=== PATIENT | male | born 1965 ===

== ENCOUNTER 2016-05-31 13:02 | Emergency (ER) | payer MEDICAID ==
[2016-05-31 13:02] VITALS: BMI 21.5
[2016-05-31 13:12] VITALS: BP 148/82; PULSE 82; RESP 16; TEMP 97.5; O2SAT 100
--- NOTE | 2016-05-31 13:49 | ED PDOC ---
HPI: Wound Care - HPI Time Seen by Provider: 05/31/16 13:19 Chief Complaint (Nursing): Wound Check Chief Complaint (Provider): wound check History Per: Patient Exam Limitations: no limitations Additional Complaint(s): 50 yo M in ed for eval of wound to right lower leg . PT with chronic venous stasis. 05/25/16-was admitted for IV abx. routinely get wound dressing by JESUSITA Lu. pt has been taking ciprofloxacin -completing it. pt admits wound is improving no drainage no pain no increase in swelling no fever no chills vomiting Past Medical History Reviewed: Historical Data, Nursing Documentation, Vital Signs Vital Signs: Last Vital Signs Temp 97.5 F L 05/31/16 13:07 Pulse 82 05/31/16 13:07 Resp 16 05/31/16 13:07 BP 148/82 05/31/16 13:07 Pulse Ox 100 05/31/16 13:07 - Medical History PMH: Denies: Chronic Kidney Disease - Family History Family History: States: Unknown Family Hx - Home Medications Home Medications: Ambulatory Orders Medication Instructions Recorded Ciprofloxacin HCl [Cipro] 500 mg PO BID #10 tablet 05/27/16 - Allergies Allergies/Adverse Reactions: Allergies Allergy/AdvReac Type Severity Reaction Status Date / Time merbromin Allergy Mild RASH Verified 05/31/16 13:07 Iodine and Iodide Containing Allergy SHORTNESS Verified 05/31/16 13:07 Produc OF BREATH Review of Systems ROS Statement: Except As Marked, All Systems Reviewed And Found Negative Skin: Positive for: Lesions Physical Exam - Reviewed Nursing Documentation Reviewed: Yes Vital Signs Reviewed: Yes - Physical Exam Appears: Positive for: Well, Non-toxic, No Acute Distress Head Exam: Positive for: ATRAUMATIC, NORMAL INSPECTION, NORMOCEPHALIC Skin: Positive for: Normal Color, Warm, DRY Cardiovascular/Chest: Positive for: Regular Rate, Rhythm Respiratory: Positive for: CNT, Normal Breath Sounds Extremity: Positive for: Normal ROM, Pedal Edema, Capillary Refill, Other ( right lower leg-anterior chin: pitting edema noted. varicose vieins noted. 1x2 round healing ulceration with central granualtion tissue and mild surronding erythema , mildly warm to touch. no drainage ). Negative for: Calf Tenderness, Deformity Neurologic/Psych: Positive for: Alert, Oriented - ECG O2 Sat by Pulse Oximetry: 100 - Progress ED Course And Treament: podiatry consulted. Medical Decision Making Medical Decision Making: wound dressing applied-pt to f.u with wound clinic as scheduled. Disposition - Clinical Impression Clinical Impression: Encounter for wound re-check - Patient ED Disposition Is Patient to be Admitted: No Counseled Patient/Family Regarding: Diagnosis, Need For Followup - Disposition Disposition: Routine/Home Disposition Time: 14:15 Condition: STABLE Instructions: Wound Infection (ED), Chronic Wound Care (ED) Print Language: CZECH
--- NOTE | 2016-05-31 19:07 | CP.PCM.CON ---
History of Present Illness - History of Present Illness History of Present Illness: Podiatry Consult Note. Pt presents to ER concerning right leg wound. Pt is know to podiatry service, patient recently discharged 05/27/16 after treatment of stated ulceration site. Pt is continuing oral abx regimen of Clindamycin. Pt has no pedal complaints about ulcer and has not noted any negative changes or exacerbations of prior symptoms of cellulits since discharge. He is here for a clean environment to perform a stable dressing change until he can f/u in [facility] with Dr. Lu later this week. Pt denies any recent f/c/n/v/cp/sob. Past Patient History - Infectious Disease Hx of Infectious Diseases: None - Past Medical History & Family History Past Medical History?: Yes - Past Social History Smoking Status: Heavy Smoker > 10 Cigarettes Daily - CARDIAC Hx Cardiac Disorders: Yes - PULMONARY Hx Respiratory Disorders: No - NEUROLOGICAL Hx Neurological Disorder: No - HEENT Hx HEENT Problems: Yes Other/Comment: Use Eyeglasses - RENAL Hx Chronic Kidney Disease: No - ENDOCRINE/METABOLIC Hx Endocrine Disorders: No - HEMATOLOGICAL/ONCOLOGICAL Hx Blood Disorders: No - INTEGUMENTARY Hx Dermatological Problems: Yes Hx Cellulitis: Yes - MUSCULOSKELETAL/RHEUMATOLOGICAL Hx Musculoskeletal Disorders: Yes Hx Falls: Yes - GASTROINTESTINAL Hx Gastrointestinal Disorders: No - GENITOURINARY/GYNECOLOGICAL Hx Genitourinary Disorders: No - PSYCHIATRIC Hx Psychophysiologic Disorder: No Hx Substance Use: No - SURGICAL HISTORY Hx Surgeries: No - ANESTHESIA Hx Anesthesia: No Hx Anesthesia Reactions: No Hx Malignant Hyperthermia: No Meds Allergies/Adverse Reactions: Allergies Allergy/AdvReac Type Severity Reaction Status Date / Time merbromin Allergy Mild RASH Verified 05/31/16 13:07 Iodine and Iodide Containing Allergy SHORTNESS Verified 05/31/16 13:07 Produc OF BREATH Physical Exam - Constitutional Appears: Well, Non-toxic, No Acute Distress - Extremities Exam Additional comments: Right lower extremity examination: Vascular: DP/PT 2/4, TG wnl, CFT < 3 sec to all digits; temperature gradient is WNL Neuro: protective sensation and motor function grossly intact Derm: non-pitting edema bilateral, erythema to anterior tibia bilateral, right leg superficial ulceration noted to anteromedial block measuring 1.5cm x 2.0cm with granular-fibrotic mixed base absent erythematous margins nor malodor is present. Minor serous drainage noted, negative probe to bone; no purulence. Ortho: negative pain upon palpation of ulcer site - Neurological Exam Neurological exam: Alert, Oriented x3 - Psychiatric Exam Psychiatric exam: Normal Affect, Normal Mood Results - Vital Signs Recent Vital Signs: Last Vital Signs Temp 97.5 F L 05/31/16 13:07 Pulse 82 05/31/16 13:07 Resp 16 05/31/16 13:07 BP 148/82 05/31/16 13:07 Pulse Ox 100 05/31/16 14:15 Assessment & Plan - Assessment and Plan (Free Text) Assessment: 50 y/o male with Right lower leg chronic partial thickness stasis ulceration Plan: Patient evaluated and treated. Chart and vitals reviewed. Pt afebrile. Discussed patient with attending, Dr. Lu. -Redressed wound with Mupuricin (pt's own supply), DSD, & MIKE to the ulcer site -Pt to continue oral Clindamycin use Patient is currently stable for discharge from podiatric perspective; he has an appointment to follow-up with Dr. Lu at the Wound care center. - Date & Time Date: 05/31/16 Time: 02:15
== END 2016-05-31 14:22 | disposition home or self-care (01) ==
LOC: H.ER 13:02
DX: Z51.89 Encounter for other specified aftercare (principal)

== ENCOUNTER 2016-06-05 14:06 | Emergency (ER) | payer MEDICAID ==
[2016-06-05 14:06] VITALS: BMI 21.5
[2016-06-05 14:31] VITALS: BP 125/89; PULSE 99; RESP 18; TEMP 97.9; O2SAT 98
--- NOTE | 2016-06-05 15:22 | ED PDOC ---
HPI: Wound Care - HPI Time Seen by Provider: 06/05/16 15:03 Chief Complaint (Nursing): Wound Check Chief Complaint (Provider): Wound Check RLE History Per: Patient Exam Limitations: no limitations Location Of Injury: Right: Leg (Lower Leg), Anterior: Leg Quality Of Symptoms: Itching, Draining Additional Complaint(s): Can Daly is a 50 year old male, with a past medical history inclusive of chronic venous stasis (b/l LE), who presents to the ED on 06/05/16 for a check of a chronic wound located on his anterior RLE. Patient states that he usually follows up with Dr. Lu of the Wound [facility] for regular dressing changes ( last of which was 5 days ago), but that he had been unable to do so today. He reports having noted a mild amount of drainage from the wound and states that it has also been itching/burning of late, though he denies fever/chills. PMD: none Past Medical History Reviewed: Historical Data, Nursing Documentation, Vital Signs Vital Signs: Last Vital Signs Temp 97.9 F 06/05/16 14:30 Pulse 99 H 06/05/16 14:30 Resp 18 06/05/16 14:30 BP 125/89 06/05/16 14:30 Pulse Ox 98 06/05/16 14:30 - Medical History PMH: Denies: Chronic Kidney Disease Other PMH: chronic venous stasis of b/l LE - Surgical History Surgical History: No Surg Hx - Family History Family History: States: Unknown Family Hx - Living Arrangements Living Arrangements: Other (currently homeless) - Home Medications Home Medications: Ambulatory Orders Medication Instructions Recorded Ciprofloxacin HCl [Cipro] 500 mg PO BID #10 tablet 05/27/16 - Allergies Allergies/Adverse Reactions: Allergies Allergy/AdvReac Type Severity Reaction Status Date / Time merbromin Allergy Mild RASH Verified 06/05/16 14:27 Iodine and Iodide Containing Allergy SHORTNESS Verified 06/05/16 14:27 Produc OF BREATH Review of Systems Constitutional: Negative for: Fever, Chills Skin: Positive for: Other (drainage/burning/itching of chronic RLE wound) Physical Exam - Reviewed Nursing Documentation Reviewed: Yes Vital Signs Reviewed: Yes - Physical Exam Appears: Positive for: Non-toxic, No Acute Distress Extremity: Positive for: Swelling (varicose veins with some pitting edema noted to RLE, with an additional small area of swelling noted just inferior to healing ulcer), Other (healing ulcer noted to anterior aspect of right lower leg with no notable drainage/granular tissue, nontender to palpation with no warmth/wound streaking ) Neurologic/Psych: Positive for: Alert, Oriented - ECG O2 Sat by Pulse Oximetry: 98 (RA) Pulse Ox Interpretation: Normal Medical Decision Making Medical Decision Makin:03 Initial Impression: chronic RLE wound Discussed case with Podiatry, resident will come down to evaluate patient at bedside. Pt advised to not continue to ED for wound dressgin changes. next week Wednesday appt with JESUSITA Lu Scribe Attestation: Documented by Olga Chowdary, acting as a scribe for Ruth Ann Waterman PA-C. Provider Scribe Attestation: All medical record entries made by the Scribe were at my direction and personally dictated by me. I have reviewed the chart and agree that the record accurately reflects my personal performance of the history, physical exam, medical decision making, and the department course for this patient. I have also personally directed, reviewed, and agree with the discharge instructions and disposition. Disposition - Clinical Impression Clinical Impression: Encounter for wound re-check - Patient ED Disposition Is Patient to be Admitted: No Counseled Patient/Family Regarding: Need For Followup - Disposition Disposition: Routine/Home Disposition Time: 15:59 Condition: STABLE Instructions: Chronic Wound Care (ED)
--- NOTE | 2016-06-05 18:36 | CP.PCM.CON ---
History of Present Illness - History of Present Illness History of Present Illness: Pt presents to ER concerning right leg wound. Pt is know to podiatry service. Patient came into ED on 05/31/2016 for dressing change. Patient states that he was supposed to follow up with Dr. Lu at his woundcare clinic but missed and did not go this week. Pt has no pedal complaints about ulcer and has not noted any negative changes or exacerbations of prior symptoms. He is here for a clean environment to perform a stable dressing change until he can f/u in [facility] with Dr. Lu. Pt denies any recent f/c/n/v/cp/sob. Past Patient History - Infectious Disease Hx of Infectious Diseases: None - Past Medical History & Family History Past Medical History?: Yes - Past Social History Smoking Status: Heavy Smoker > 10 Cigarettes Daily - CARDIAC Hx Cardiac Disorders: Yes - PULMONARY Hx Respiratory Disorders: No - NEUROLOGICAL Hx Neurological Disorder: No - HEENT Hx HEENT Problems: Yes Other/Comment: Use Eyeglasses - RENAL Hx Chronic Kidney Disease: No - ENDOCRINE/METABOLIC Hx Endocrine Disorders: No - HEMATOLOGICAL/ONCOLOGICAL Hx Blood Disorders: No - INTEGUMENTARY Hx Dermatological Problems: Yes Hx Cellulitis: Yes - MUSCULOSKELETAL/RHEUMATOLOGICAL Hx Musculoskeletal Disorders: Yes Hx Falls: Yes - GASTROINTESTINAL Hx Gastrointestinal Disorders: No - GENITOURINARY/GYNECOLOGICAL Hx Genitourinary Disorders: No - PSYCHIATRIC Hx Psychophysiologic Disorder: No Hx Substance Use: No - SURGICAL HISTORY Hx Surgeries: No - ANESTHESIA Hx Anesthesia: No Hx Anesthesia Reactions: No Hx Malignant Hyperthermia: No Meds Allergies/Adverse Reactions: Allergies Allergy/AdvReac Type Severity Reaction Status Date / Time merbromin Allergy Mild RASH Verified 06/05/16 14:27 Iodine and Iodide Containing Allergy SHORTNESS Verified 06/05/16 14:27 Produc OF BREATH Physical Exam - Constitutional Appears: Well, Non-toxic, No Acute Distress - Extremities Exam Additional comments: Right lower extremity examination: Vascular: DP/PT 2/4, TG wnl, CFT < 3 sec to all digits; temperature gradient is WNL Neuro: protective sensation and motor function grossly intact Derm: non-pitting edema bilateral, erythema to anterior tibia bilateral, right leg superficial ulceration noted to anteromedial block measuring 1.5cm x 2.0cm with granular-fibrotic mixed base absent erythematous margins nor malodor is present. Minor serous drainage noted, negative probe to bone; no purulence. Ortho: negative pain upon palpation of ulcer site - Neurological Exam Neurological exam: Alert, Oriented x3 - Psychiatric Exam Psychiatric exam: Normal Affect, Normal Mood - Skin Skin Exam: Normal Color, Warm Results - Vital Signs Recent Vital Signs: Last Vital Signs Temp 97.9 F 06/05/16 14:30 Pulse 99 H 06/05/16 14:30 Resp 18 06/05/16 14:30 BP 125/89 06/05/16 14:30 Pulse Ox 98 06/05/16 15:59 Assessment & Plan - Assessment and Plan (Free Text) Assessment: 50 y/o male with Right lower leg chronic partial thickness stasis ulceration Plan: Patient evaluated and treated. Chart and vitals reviewed. Pt afebrile. Discussed patient with attending, Dr. Lu. -Redressed wound with Mupuricin (pt's own supply), DSD, & MIKE to the ulcer site Patient is currently stable for discharge from podiatric perspective; he has an appointment to follow-up with Dr. Lu at the Wound care center.
== END 2016-06-05 16:12 | disposition home or self-care (01) ==
LOC: H.ER 14:06
DX: Z51.89 Encounter for other specified aftercare (principal)

== ENCOUNTER 2016-07-18 18:29 | Emergency (ER) | payer MEDICAID ==
[2016-07-18 18:29] VITALS: BMI 29.2
[2016-07-18 18:35] VITALS: RESP 18
--- NOTE | 2016-07-18 19:10 | ED PDOC ---
Lower Extremity Pain/Injury Time Seen by Provider: 07/18/16 19:05 Chief Complaint (Nursing): Lower Extremity Problem/Injury Chief Complaint (Provider): bilateral leg wound History Per: Patient (50 y/o male here for evaluation of new left leg ulcerative lesion noted distal to ongoing ulcer. Denies any fevers/chills. Is currently on Augmentin. Has been followed by Dr. uL and last seen by him in wound care clinic on wednesday. ) Past Medical History Reviewed: Historical Data, Nursing Documentation, Vital Signs Vital Signs: Last Vital Signs Temp 98.5 F 07/18/16 18:32 Pulse 85 07/18/16 18:32 Resp 18 07/18/16 18:32 BP 132/77 07/18/16 18:32 Pulse Ox 98 07/18/16 18:32 - Medical History PMH: Denies: Chronic Kidney Disease - Family History Family History: States: Unknown Family Hx - Home Medications Home Medications: Ambulatory Orders Medication Instructions Recorded Ciprofloxacin HCl [Cipro] 500 mg PO BID #10 tablet 05/27/16 - Allergies Allergies/Adverse Reactions: Allergies Allergy/AdvReac Type Severity Reaction Status Date / Time merbromin Allergy Mild RASH Verified 06/05/16 14:27 Iodine and Iodide Containing Allergy SHORTNESS Verified 07/18/16 18:31 Produc OF BREATH Review of Systems ROS Statement: Except As Marked, All Systems Reviewed And Found Negative Musculoskeletal: Positive for: Leg Pain Physical Exam - Reviewed Nursing Documentation Reviewed: Yes Vital Signs Reviewed: Yes - Physical Exam Appears: Positive for: Well, Non-toxic, No Acute Distress Head Exam: Positive for: ATRAUMATIC, NORMAL INSPECTION, NORMOCEPHALIC Skin: Positive for: Normal Color, Warm, DRY Eye Exam: Positive for: EOMI, Normal appearance, PERRL ENT: Positive for: Normal ENT Inspection Neck: Positive for: Normal, Painless ROM Cardiovascular/Chest: Positive for: Regular Rate, Rhythm Respiratory: Positive for: CNT, Normal Breath Sounds Gastrointestinal/Abdominal: Positive for: Normal Exam, Bowel Sounds, Soft Back: Positive for: Normal Inspection Extremity: Positive for: Normal ROM, Other (2 cm proximal region of left leg with surrounding erythema and darkened material within; similar wound noted distal of left leg anterior.) Neurologic/Psych: Positive for: Alert, Oriented - ECG O2 Sat by Pulse Oximetry: 98 - Progress ED Course And Treament: d/w podiatry resident BC x 2 Vancomycin 1 gm iv x 1 dose XRY BILATERAL TIB-FIB: NO BONY ABNORMALITY Disposition - Clinical Impression Clinical Impression: Multiple open wounds of lower leg - Patient ED Disposition Is Patient to be Admitted: Transfer of Care - Disposition Disposition: Transfer of Care Disposition Time: 20:00 Condition: FAIR Patient Signed Over To: Ruth Ann Waterman Handoff Comments: PENDING PODIATRY EVALUATION
[2016-07-18] MEDS ORDERED: Vancomycin 1 g Inj ONE (19:34)
[2016-07-18 19:58] LABS: BASO % 0.4 % (0.0-2.0); EOS # 0.1 K/uL (0.0-0.7); EOS % 2.3 % (0.0-4.0); HEMATOCRIT 39.5 % (35.0-51.0); LYMPH # 1.6 K/uL (1.0-4.3); LYMPH % 25.4 % (20.0-40.0); MEAN CELL VOLUME 94.3 fl (80.0-94.0); MEAN CORPUSCULAR HEMOGLOBIN 31.5 pg (27.0-31.0); MEAN CORPUSCULAR HGB CONC 33.4 g/dL (33.0-37.0); MEAN PLATELET VOLUME 7.4 fl (7.2-11.7); MONO # 0.5 K/uL (0.0-0.8); MONO % 7.4 % (0.0-10.0); NEUT # 4.1 K/uL (1.8-7.0); NEUT % 64.5 % (50.0-75.0); NRBC % 0.1 % (0.0-0.0); RED CELL DISTRIBUTION WIDTH 13.4 % (11.5-14.5); WHITE BLOOD COUNT 6.3 K/uL (4.8-10.8)
[2016-07-18 20:05] LABS: ALB/GLOB RATIO 1.1 (1.0-2.1); ALKALINE PHOSPHATASE 85 U/L (38-126); ALT/SGPT 27 U/L (21-72); AST/SGOT 25 U/L (17-59); BILIRUBIN,TOTAL 0.6 mg/dl (0.2-1.3); BLOOD UREA NITROGEN 17 mg/dl (9-20); CALCIUM 8.9 mg/dL (8.4-10.2); CARBON DIOXIDE 28 mmol/L (22-30); CHLORIDE 100 mmol/L (98-107); GFR AFRICAN-AMERICAN > 60; GLUCOSE,RANDOM 108 mg/dL (75-110); POTASSIUM 4.1 MMOL/L (3.6-5.0); SODIUM 139 mmol/l (132-148); TOTAL PROTEIN 7.5 G/DL (6.3-8.2)
--- NOTE | 2016-07-18 20:24 | CP.PCM.CON ---
History of Present Illness - History of Present Illness History of Present Illness: 50 year old male with PMHx of varicose veins presents to ER concerning swelling and wound to left lower extremity. He is know to podiatry service. He saw Dr. Lu in the wound care center on Wednesday for he wounds and was given augmentin which he has been taking. He states that his left leg is swollen but since resting in the bed, the swelling has come down. He admits to dressing his right wound with DSD, and applying cream to his feet as prescribed by Dr. Lu. He has an appointment in the wound care center on Wednesday with Dr. Lu. Denies n/v/f/c/sob/cp. Past Patient History - Infectious Disease Hx of Infectious Diseases: None - Past Medical History & Family History Past Medical History?: Yes - Past Social History Smoking Status: Heavy Smoker > 10 Cigarettes Daily - CARDIAC Hx Cardiac Disorders: No - PULMONARY Hx Respiratory Disorders: No - NEUROLOGICAL Hx Neurological Disorder: No - HEENT Hx HEENT Problems: Yes Other/Comment: Use Eyeglasses - RENAL Hx Chronic Kidney Disease: No - ENDOCRINE/METABOLIC Hx Endocrine Disorders: No - HEMATOLOGICAL/ONCOLOGICAL Hx Blood Disorders: No - INTEGUMENTARY Hx Dermatological Problems: Yes Hx Cellulitis: Yes - MUSCULOSKELETAL/RHEUMATOLOGICAL Hx Musculoskeletal Disorders: Yes Hx Falls: Yes - GASTROINTESTINAL Hx Gastrointestinal Disorders: No - GENITOURINARY/GYNECOLOGICAL Hx Genitourinary Disorders: No - PSYCHIATRIC Hx Psychophysiologic Disorder: No Hx Substance Use: No - SURGICAL HISTORY Hx Surgeries: No - ANESTHESIA Hx Anesthesia: No Hx Anesthesia Reactions: No Hx Malignant Hyperthermia: No Meds Allergies/Adverse Reactions: Allergies Allergy/AdvReac Type Severity Reaction Status Date / Time merbromin Allergy Mild RASH Verified 06/05/16 14:27 Iodine and Iodide Containing Allergy SHORTNESS Verified 07/18/16 18:31 Produc OF BREATH Physical Exam - Constitutional Appears: Well, Non-toxic, No Acute Distress - Extremities Exam Additional comments: Lower extremity focused examination: Vasc: DP and PT pulses palpable 2/4 b/l, TG wnl, CFT < 3 sec to all digits; temperature gradient is WNL. Varicosites noted to legs and feet b/l. Neuro: Protective sensation and motor function grossly intact Derm: Non-pitting edema bilateral, erythema to anterior tibia bilateral, right leg superficial ulceration noted to anteromedial block measuring approximately 1.5cm x 2.0cm with granular-fibrotic mixed base, periwound is macerated, absent erythematous margins nor malodor is present. Minor serous drainage noted, negative probe to bone; no purulence. On the left lower extremity there are two eschars on proximally and one distally, the periwound is erythematous, no drainage, no malodor, no fluctuance noted. Dermatitis noted to dorsal aspect of feet b/l. Webspaces are macerated 1-4 b/l. Ortho: No pain on palpation to calf upon compression b/l. No pain on palpation to ulceration sites - Neurological Exam Neurological exam: Alert, Oriented x3 - Psychiatric Exam Psychiatric exam: Normal Affect, Normal Mood Results - Vital Signs Recent Vital Signs: Last Vital Signs Temp 98.5 F 07/18/16 18:32 Pulse 85 07/18/16 18:32 Resp 18 07/18/16 18:32 BP 132/77 07/18/16 18:32 Pulse Ox 98 07/18/16 19:50 - Labs Result Diagrams: 07/18/16 19:50 07/18/16 19:50 Labs: Laboratory Results - last 24 hr 07/18/16 07/18/16 07/18/16 19:50 19:50 19:50 WBC 6.3 RBC 4.19 L Hgb 13.2 Hct 39.5 MCV 94.3 H MCH 31.5 H MCHC 33.4 RDW 13.4 Plt Count 209 MPV 7.4 Neut % (Auto) 64.5 Lymph % (Auto) 25.4 Greene % (Auto) 7.4 Eos % (Auto) 2.3 Baso % (Auto) 0.4 Neut # 4.1 Lymph # 1.6 Greene # 0.5 Eos # 0.1 Baso # 0.0 Sodium 139 Potassium 4.1 Chloride 100 Carbon Dioxide 28 Anion Gap 16 BUN 17 Creatinine 0.8 Est GFR ( Amer) > 60 Est GFR (Non-Af Amer) > 60 Random Glucose 108 Lactic Acid 1.1 Calcium 8.9 Total Bilirubin 0.6 AST 25 ALT 27 Alkaline Phosphatase 85 Total Protein 7.5 Albumin 4.0 Globulin 3.5 Albumin/Globulin Ratio 1.1 Assessment & Plan - Assessment and Plan (Free Text) Assessment: 50 year old male with b/l lower extremity wounds secondary to venous stasis, and varicosities b/l Plan: Patient examined and evaluated discussed in detail with attending, Dr. Lu radiographs reviewed- no acute signs of fracture noted webspaces cleaned discussed the importance of proper foot care and hygiene right anterior block wound cleansed with normal sterile saline, dressed with DSD jerry applied to LE b/l- to be worn duing the day, taken off at night patient to continue augmentin per Dr. Lu Patient to follow up with Dr. Lu in wound care center on Wednesday for scheduled appointment
--- NOTE | 2016-07-18 20:27 | ED PDOC ---
- Laboratory Results Result Diagrams: 07/18/16 19:50 07/18/16 19:50 - ECG O2 Sat by Pulse Oximetry: 98 - Progress ED Course And Treament: 50yo M in ED routinely for wound care homeless pending podiatry consult. normal WBC normal Xray. Bld cx sent. Re-evaluation Time: 20:41 Condition: Unchanged Medical Decision Making Medical Decision Making: podiatry saw and evaluate pt-will provide wound care and pt will f/u in office. pt understands and agrees with wound care instructions. Disposition - Clinical Impression Clinical Impression: Multiple open wounds of lower leg - POA Present On Arrival: None - Disposition Disposition: Routine/Home Disposition Time: 20:42 Condition: FAIR Instructions: Chronic Wound Care (ED), Wound Infection (ED) Progress Note - Review of Symptoms General: No: Chills, Night Sweats, Fatigue, Malaise, Appetite, Other HEENT: No: Head Aches, Visual Changes, Eye Pain, Ear Pain, Dysphasia, Sinus Congestion, Post Nasal Drip, Sore Throat, Other Pulmonary: No: Dyspnea, Cough, Pleuritic Chest Pain, Other Cardiovascular: No: Chest Pain, Palpitations, Orthopnea, Paroxysmal Noc. Dyspnea , Edema, Light Headedness, Other Gastrointestinal: No: Nausea, Vomiting, Abdominal Pain, Diarrhea, Constipation, Melena, Hematochezia, Other Genitourinary: No: Dysuria, Frequency, Incontinence, Hematuria, Retention, Other Musculoskeletal: Positive for: Other (b/l feet-swelling) Neurological: No: Weakness, Numbness, Incoordination, Change in speech, Confusion, Seizures, Other
[2016-07-18 22:56] VITALS: BP 129/81; PULSE 81; TEMP 98.7; O2SAT 100
--- NOTE | 2016-07-19 10:54 | RAD ---
PROCEDURE: Radiographs of the bilateral Tibiae and Fibulae. HISTORY: bilateral leg pain COMPARISON: None available. TECHNIQUE: Frontal and lateral views obtained. FINDINGS: BONES: RIGHT TIBIA: No fracture or destructive lesion. LEFT TIBIA: No fracture or destructive lesion. JOINT SPACES: RIGHT TIBIA: Normal. LEFT TIBIA: Normal. SOFT TISSUES: RIGHT TIBIA: Varicosities are suspected. Diffuse soft tissue swelling is noted. Nonspecific tiny calcifications are seen in the soft tissues which may represent vascular calcification or within the skin. LEFT TIBIA: Varicosities are suspected. Diffuse soft tissue swelling is noted. Nonspecific tiny calcifications are seen in the soft tissues which may represent vascular calcification or within the skin. OTHER FINDINGS: Calcaneal spurs are noted bilaterally. Mild degenerative changes are seen in the ankle joints bilaterally IMPRESSION: No fracture or lytic process in the bony structures. No periosteal reaction. Nonspecific soft tissue swelling and probable varicosities throughout the lower leg region. Calcifications may reflect vascular calcification bilaterally. Tiny soft tissue ulceration is not excluded in the medial distal ankle region.
== END 2016-07-18 22:30 | disposition home or self-care (01) ==
LOC: H.ER 18:29
DX: S81.802A Unspecified open wound, left lower leg, initial encounter (principal); S81.801A Unspecified open wound, right lower leg, initial encounter; Z59.0 Homelessness

== ENCOUNTER 2016-07-27 19:42 | Emergency (ER) | payer MEDICAID ==
[2016-07-27 19:42] VITALS: BMI 29.2
[2016-07-27 20:28] VITALS: BP 130/76; PULSE 84; RESP 16; TEMP 98.6; O2SAT 99
--- NOTE | 2016-07-27 21:57 | ED PDOC ---
Lower Extremity Pain/Injury Time Seen by Provider: 07/27/16 20:00 Chief Complaint (Nursing): Lower Extremity Problem/Injury Chief Complaint (Provider): Left Leg Pain History Per: Patient History/Exam Limitations: no limitations Onset/Duration Of Symptoms: Days (since last night) Current Symptoms Are (Timing): Still Present Severity: Moderate Additional Complaint(s): Can Daly is a 50 year old male, with a past medical history of chronic leg ulcers and chronic venous stasis to both legs, who presents to the emergency department for the evaluation of left leg pain, that the patient began experiencing last night. Patient reports that he frequently follows up with his process manufacturing engineer, Dr. Kelton Lu. Two lesions are currently present on patient's left legs. Denies a fever, drainage, or warmth to his legs. Patient is currently requesting Tylenol and states that he has no known drug allergies. PMD: none specified Past Medical History Reviewed: Historical Data, Nursing Documentation, Vital Signs Vital Signs: Last Vital Signs Temp 98.6 F 07/27/16 20:26 Pulse 84 07/27/16 20:26 Resp 16 07/27/16 20:26 BP 130/76 07/27/16 20:26 Pulse Ox 99 07/27/16 20:26 - Medical History PMH: No Chronic Diseases Denies: Chronic Kidney Disease Other PMH: Chronic Leg Ulcers, Chronic Venous Stasis, Cellulitis - Surgical History Surgical History: No Surg Hx - Family History Family History: States: No Known Family Hx - Living Arrangements Living Arrangements: Other (non-domiciled) - Social History Current smoker - smoking cessation education provided: Yes (Heavy smoker > 10 cigarettes daily) Alcohol: None Drugs: Denies - Home Medications Home Medications: Ambulatory Orders Medication Instructions Recorded Ciprofloxacin HCl [Cipro] 500 mg PO BID #10 tablet 05/27/16 - Allergies Allergies/Adverse Reactions: Allergies Allergy/AdvReac Type Severity Reaction Status Date / Time merbromin Allergy Mild RASH Verified 06/05/16 14:27 Iodine and Iodide Containing Allergy SHORTNESS Verified 07/18/16 18:31 Produc OF BREATH Review of Systems ROS Statement: Except As Marked, All Systems Reviewed And Found Negative Constitutional: Negative for: Fever Musculoskeletal: Positive for: Leg Pain (L) Skin: Positive for: Lesions (x2 on L leg). Negative for: Other (drainage, warmth to b/l legs) Physical Exam - Physical Exam Appears: Positive for: Well, Non-toxic, No Acute Distress Skin: Positive for: Normal Color Neurologic/Psych: Positive for: Alert, Oriented - ECG O2 Sat by Pulse Oximetry: 99 (RA) Pulse Ox Interpretation: Normal Medical Decision Making Medical Decision Makin:30 Initial Impression: Chronic venous insufficiency Initial Plan: * Acetaminophen 650 mg PO * Podiatry Consult as per podiatry pt stabel for dc and follow up tomorrow Scribe Attestation: Documented by Angel Causey, acting as a scribe for Heather Woods MD. Provider Scribe Attestation: All medical record entries made by the Scribe were at my direction and personally dictated by me. I have reviewed the chart and agree that the record accurately reflects my personal performance of the history, physical exam, medical decision making, and the department course for this patient. I have also personally directed, reviewed, and agree with the discharge instructions and disposition. Disposition - Clinical Impression Clinical Impression: Chronic venous insufficiency - Patient ED Disposition Is Patient to be Admitted: No Counseled Patient/Family Regarding: Studies Performed, Diagnosis - Disposition Referrals: Kelton Lu DPM [Doctor Podiatric Medicine] - Disposition: Routine/Home Disposition Time: 22:00 Condition: IMPROVED Additional Instructions: follow up with your process manufacturing engineer on Wednesday return to the ED with any worsening or concerning symptoms Instructions: Peripheral Vascular Disease (ED), Venous Insufficiency (GEN)
--- NOTE | 2016-07-27 23:08 | CP.PCM.CON ---
History of Present Illness - History of Present Illness History of Present Illness: This is a 50 yo male patient w/ pmhx sign for chronic venous stasis to bl legs w / chronic ulcerations who presents to the ED tonight due to left leg pain. Pt says that he has pain all over the left leg which he says started yesterday. He also notices that his legs are swollen. Rates the pain to the left leg as a 7/ 10. Says that he last saw Dr. Lu at the wound care center last Wednesday and has a follow-up appointment later this week. Denies f/n/v/c/sob/cp. Denies seeing any drainage to the legs. Says he walks quite a bit, is not able to elevate the legs much. Says he started taking the Augmentin that was prescribed to him last week and still has several days left. Review of Systems - Review of Systems Review of Systems: All systems reviewed and found to be negative except pertinent HPI findings above Past Patient History - Infectious Disease Hx of Infectious Diseases: None - Past Medical History & Family History Past Medical History?: Yes - Past Social History Alcohol: None Drugs: Denies - CARDIAC Hx Cardiac Disorders: No - PULMONARY Hx Respiratory Disorders: No - NEUROLOGICAL Hx Neurological Disorder: No - HEENT Hx HEENT Problems: Yes Other/Comment: Use Eyeglasses - RENAL Hx Chronic Kidney Disease: No - ENDOCRINE/METABOLIC Hx Endocrine Disorders: No - HEMATOLOGICAL/ONCOLOGICAL Hx Blood Disorders: No - INTEGUMENTARY Hx Dermatological Problems: Yes Hx Cellulitis: Yes - MUSCULOSKELETAL/RHEUMATOLOGICAL Hx Musculoskeletal Disorders: Yes Hx Falls: Yes - GASTROINTESTINAL Hx Gastrointestinal Disorders: No - GENITOURINARY/GYNECOLOGICAL Hx Genitourinary Disorders: No - PSYCHIATRIC Hx Psychophysiologic Disorder: No Hx Substance Use: No - SURGICAL HISTORY Hx Surgeries: No - ANESTHESIA Hx Anesthesia: No Hx Anesthesia Reactions: No Hx Malignant Hyperthermia: No Meds Allergies/Adverse Reactions: Allergies Allergy/AdvReac Type Severity Reaction Status Date / Time merbromin Allergy Mild RASH Verified 06/05/16 14:27 Iodine and Iodide Containing Allergy SHORTNESS Verified 07/18/16 18:31 Produc OF BREATH Physical Exam - Constitutional Appears: Non-toxic, No Acute Distress, Unkempt - Extremities Exam Extremities exam: Negative for: calf tenderness Additional comments: Bilateral lower extremity exam Vasc: DP and PT pulses palpable 2/4 b/l, TG wnl, CFT < 3 sec to digits x 10; temperature gradient is WNL. Varicosites noted to legs and feet b/l. Neuro: grossly intact Derm: Non-pitting edema bilateral (L>R), erythema to anterior tibia bilateral, right leg superficial ulceration noted to anteromedial block measuring approximately 1.5cm x 2.0cm with granular-fibrotic mixed base, periwound is macerated, absent erythematous margins nor malodor is present. Minor serous drainage noted, negative probe to bone; no purulence. On the left lower extremity there are two eschars on proximally and one distally, the periwound is erythematous, no drainage, no malodor, no fluctuance noted. Dermatitis noted to dorsal aspect of feet b/l. Webspaces are macerated 1-4 b/l. Ortho: no tenderness on compression of calf bl, tenderness is noted to ulceration sites of left leg. - Neurological Exam Neurological exam: Alert, CN II-XII Intact, Oriented x3 - Psychiatric Exam Psychiatric exam: Normal Affect, Normal Mood Results - Vital Signs Recent Vital Signs: Last Vital Signs Temp 98.6 F 07/27/16 20:26 Pulse 84 07/27/16 20:26 Resp 16 07/27/16 20:26 BP 130/76 07/27/16 20:26 Pulse Ox 99 07/27/16 22:04 Assessment & Plan - Assessment and Plan (Free Text) Assessment: 50 year old male patient with b/l lower extremity wounds secondary to venous stasis changes Plan: Patient S&E at bedside in ED Chart reviewed: afebrile, left leg wound cx: E. faecalis, coag (-) staph (07/15/16 ) Plan discussed with attending Dr. Lu Legs and feet cleaned bl with sterile saline and aloe vera soap Legs/feet dried thoroughly Wounds dressed with telfa bl, kerlix and MIKE compression dressings Advised patient to elevate legs as much as possible and importance of proper hygiene Continue w/ po Augmentin as prescribed by Dr. Lu. F/u in wound care center this Saturday 07/29 w/ Dr. Lu Stable per podiatry
== END 2016-07-27 23:55 | disposition home or self-care (01) ==
LOC: H.ER 19:42
DX: I87.2 Venous insufficiency (chronic) (peripheral) (principal); F17.210 Nicotine dependence, cigarettes, uncomplicated

== ENCOUNTER 2016-08-18 06:31 | Inpatient (IN) | payer MEDICAID ==
[2016-08-18 06:32] VITALS: BMI 29.2
[2016-08-18] MEDS ORDERED: Sodium Chloride 0.9% 1,000 ML IV STA (07:29)
[2016-08-18] MEDS ORDERED: Clindamycin 600 MG in Sodium Chloride 0.9% 100 ML IVPB STA (07:30)
--- NOTE | 2016-08-18 08:02 | ED PDOC ---
Lower Extremity Pain/Injury Time Seen by Provider: 08/18/16 07:07 Chief Complaint (Nursing): Lower Extremity Problem/Injury Chief Complaint (Provider): Lower Extremity Problem/Injury History Per: Patient History/Exam Limitations: no limitations Onset/Duration Of Symptoms: Days Current Symptoms Are (Timing): Still Present Severity: Severe Additional Complaint(s): Patient is a 50 year old male with a history of leg ulcer since January, followed by Dr. Lu. Presents to ED for worsening pain to the left leg, notes taking Cipro and Tylenol as prescribed. Denies injury. States drainage is yellow and foul smelling but denies fever. Denies chest pain, dyspnea, weakness , numbness, tingles. 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 Lu Past Medical History Reviewed: Historical Data, Nursing Documentation, Vital Signs Vital Signs: Last Vital Signs Temp 98.0 F 08/18/16 06:52 Pulse 75 08/18/16 06:52 Resp 16 08/18/16 06:52 BP 126/83 08/18/16 06:52 Pulse Ox 100 08/18/16 06:52 - Medical History PMH: No Chronic Diseases Denies: Chronic Kidney Disease - Surgical History Surgical History: No Surg Hx - Family History Family History: States: Unknown Family Hx - Home Medications Home Medications: Ambulatory Orders Medication Instructions Recorded Ciprofloxacin HCl [Cipro] 500 mg PO BID #10 tablet 05/27/16 - Allergies Allergies/Adverse Reactions: Allergies Allergy/AdvReac Type Severity Reaction Status Date / Time Iodine and Iodide Containing Allergy SHORTNESS Verified 08/18/16 08:15 Produc OF BREATH Review of Systems Constitutional: Negative for: Fever, Chills Cardiovascular: Negative for: Chest Pain, Palpitations Respiratory: Negative for: Shortness of Breath Gastrointestinal: Negative for: Nausea, Vomiting Musculoskeletal: Positive for: Leg Pain Skin: Positive for: Lesions Neurological: Negative for: Weakness, Numbness Physical Exam - Reviewed Nursing Documentation Reviewed: Yes Vital Signs Reviewed: Yes - Physical Exam Appears: Positive for: Non-toxic, No Acute Distress Skin: Positive for: Normal Color, Warm Eye Exam: Positive for: Normal appearance ENT: Positive for: Normal ENT Inspection Neck: Positive for: Normal, Painless ROM Cardiovascular/Chest: Positive for: Regular Rate, Rhythm. Negative for: Murmur Respiratory: Positive for: Normal Breath Sounds. Negative for: Respiratory Distress Pulses-Dorsalis Pedis (L): 2+ Pulses-Dorsalis Pedis (R): 2+ Back: Positive for: Normal Inspection. Negative for: L CVA Tenderness, R CVA Tenderness Extremity: Positive for: Normal ROM, Other (Left Medial ankle (+) 2cm stage 2 ulcer with yellow drainage, surrounding erythema and tenderness. Left upper block : (+) 1cm stage 2 ulcer with yellow drainage, surrounding erythema and tenderness. Right block: (+) 1cm ulcer stage 2 non tender (+) yellow drainage and mild erythema. ). Negative for: Pedal Edema, Calf Tenderness Neurologic/Psych: Positive for: Alert, Oriented - Laboratory Results Result Diagrams: 08/18/16 08:05 08/18/16 08:05 - ECG ECG: Positive for: Interpreted By Me, Viewed By Me ECG Rhythm: Positive for: Normal QRS, Normal ST Segment, Sinus Rhythm O2 Sat by Pulse Oximetry: 100 (RA) Pulse Ox Interpretation: Normal - Radiology X-Ray: Interpreted by Me, Viewed By Me X-Ray Interpretation: No Acute Disease - Progress ED Course And Treament: 1127: Spoke with [facility] resident. Will admit medsurg. Podiatry saw pt. Dressed wound. Will consult. Wants pt. to be admitted. Stable. AAOx3. Refused morphine. Wants tylenol. Medical Decision Making Medical Decision Making: Time: 724 Initial impression: Leg wound Initial plan: -- VBG -- CMP -- EKG -- Magnesium -- Troponin -- Phosphorous -- CBC -- PT/PTT -- CXR -- Clindamycin -- Morphine and NSF -- Blood culture -- quality assurance monitor final Scribe Attestation: Documented by Krystle Malhotra acting as a scribe for Noe Hawkins MD MD Scribe Attestation: All medical record entries made by the Scribe were at my direction and personally dictated by me. I have reviewed the chart and agree that the record accurately reflects my personal performance of the history, physical exam, medical decision making, and the department course for this patient. I have also personally directed, reviewed, and agree with the discharge instructions and disposition. Disposition - Clinical Impression Clinical Impression: Infected ulcer of skin - Patient ED Disposition Is Patient to be Admitted: Yes Counseled Patient/Family Regarding: Studies Performed, Diagnosis - Disposition Disposition Time: 11:28 Condition: FAIR - Pt Status Changed To: Hospital Disposition Of: Inpatient - Admit Certification Admit to Inpatient:: After my assessment, the patient will require hospitalization for at least two midnights. This is because of the severity of symptoms shown, intensity of services needed, and/or the medical risk in this patient being treated as an outpatient. - POA Present On Arrival: Pressure Ulcer
[2016-08-18 08:19] LABS: VENOUS BLOOD GAS BASE EXCESS 5.8 mmol/L (0.0-2.0); VENOUS BLOOD GAS PCO2 61 mmHg (40-60); VENOUS BLOOD PH 7.35 (7.32-7.43)
[2016-08-18 08:24] LABS: BASO % 0.3 % (0.0-2.0); EOS # 0.2 K/uL (0.0-0.7); EOS % 2.6 % (0.0-4.0); HEMATOCRIT 42.6 % (35.0-51.0); LYMPH # 1.3 K/uL (1.0-4.3); LYMPH % 17.1 % (20.0-40.0); MEAN CELL VOLUME 94.8 fl (80.0-94.0); MEAN CORPUSCULAR HEMOGLOBIN 32.3 pg (27.0-31.0); MEAN CORPUSCULAR HGB CONC 34.1 g/dL (33.0-37.0); MEAN PLATELET VOLUME 7.4 fl (7.2-11.7); MONO # 0.6 K/uL (0.0-0.8); MONO % 7.9 % (0.0-10.0); NEUT # 5.4 K/uL (1.8-7.0); NEUT % 72.1 % (50.0-75.0); RED CELL DISTRIBUTION WIDTH 13.5 % (11.5-14.5); WHITE BLOOD COUNT 7.5 K/uL (4.8-10.8)
[2016-08-18 08:33] LABS: ALB/GLOB RATIO 1.3 (1.0-2.1); ALKALINE PHOSPHATASE 87 U/L (38-126); ALT/SGPT 27 U/L (21-72); AST/SGOT 30 U/L (17-59); BILIRUBIN,TOTAL 0.9 mg/dl (0.2-1.3); BLOOD UREA NITROGEN 12 mg/dl (9-20); CARBON DIOXIDE 29 mmol/L (22-30); CHLORIDE 103 mmol/L (98-107); GFR AFRICAN-AMERICAN > 60; GLUCOSE,RANDOM 89 mg/dL (75-110); MAGNESIUM 1.9 MG/DL (1.6-2.3); PHOSPHOROUS 2.9 mg/dl (2.5-4.5); POTASSIUM 4.6 MMOL/L (3.6-5.0); SODIUM 142 mmol/l (132-148); TOTAL PROTEIN 7.9 G/DL (6.3-8.2)
[2016-08-18 08:47] LABS: PARTIAL THROMBOPLASTIN TIME 34.1 Seconds (25.6-37.1)
--- NOTE | 2016-08-18 11:11 | CP.PCM.CON ---
History of Present Illness - History of Present Illness History of Present Illness: 50 y/o male seen in the ED for 3 open wounds on LE bilaterally. Pt states that he lives in a homeless long term and sleeps on a cardboard box. Pt states that he was doing fine until Wednesday. Pt states that his pain increased after Wednesday and decided to come to the ED. Pt states that he has been taking abx (ciprofloxacin ) as prescribed to him by javascript front end developer Dr. Lu. Pt states that he has been following up with all of his medical doctors as well as Dr. Lu. Pt denies of any recent F/N/V/C/SOB today. PMHx: denies PSHx: wound debridement Allergies: Iodine SHx: denies of alcohol usage, smokes about 10 cig, a day for about 40 years Review of Systems - Constitutional Constitutional: As Per HPI Past Patient History - Infectious Disease Hx of Infectious Diseases: None - Past Medical History & Family History Past Medical History?: Yes - Past Social History Smoking Status: Heavy Smoker > 10 Cigarettes Daily - CARDIAC Hx Cardiac Disorders: No - PULMONARY Hx Respiratory Disorders: No - NEUROLOGICAL Hx Neurological Disorder: No - HEENT Hx HEENT Problems: Yes Other/Comment: Use Eyeglasses - RENAL Hx Chronic Kidney Disease: No - ENDOCRINE/METABOLIC Hx Endocrine Disorders: No - HEMATOLOGICAL/ONCOLOGICAL Hx Blood Disorders: No - INTEGUMENTARY Hx Dermatological Problems: Yes Hx Cellulitis: Yes - MUSCULOSKELETAL/RHEUMATOLOGICAL Hx Musculoskeletal Disorders: Yes Hx Falls: Yes - GASTROINTESTINAL Hx Gastrointestinal Disorders: No - GENITOURINARY/GYNECOLOGICAL Hx Genitourinary Disorders: No - PSYCHIATRIC Hx Psychophysiologic Disorder: No Hx Substance Use: No - SURGICAL HISTORY Hx Surgeries: No - ANESTHESIA Hx Anesthesia: No Hx Anesthesia Reactions: No Hx Malignant Hyperthermia: No Meds Allergies/Adverse Reactions: Allergies Allergy/AdvReac Type Severity Reaction Status Date / Time Iodine and Iodide Containing Allergy SHORTNESS Verified 08/18/16 08:15 Produc OF BREATH Physical Exam - Constitutional Appears: Non-toxic, No Acute Distress - Extremities Exam Additional comments: VASC: DP/PT: 1/4 b/l, SYSTEMS ARCHITECT: < 3 sec x 10, TG: warm to cool, no pitting or non- pitting edema noted, varicosities noted on the LE b/l DERM: Open wound on the medial aspect of the L ankle, the medial aspect of the middle left leg and anterior aspect of the right ankle, wound base appears grannular with patches of fibrosis and periwound erythema, no active drainage noted from the wounds, no malodor, no tunneling or undermining noted NEURO: Grossly intact ORTHO: mild tenderness on palpation of the wounds - Neurological Exam Neurological exam: Alert, Oriented x3 Results - Vital Signs Recent Vital Signs: Last Vital Signs Temp 98.0 F 08/18/16 06:52 Pulse 75 08/18/16 06:52 Resp 16 08/18/16 06:52 BP 126/83 08/18/16 06:52 Pulse Ox 100 08/18/16 08:26 - Labs Result Diagrams: 08/18/16 08:05 08/18/16 08:05 Labs: Laboratory Results - last 24 hr 08/18/16 08/18/16 08/18/16 07:33 08:05 08:05 WBC 7.5 RBC 4.49 Hgb 14.5 Hct 42.6 MCV 94.8 H MCH 32.3 H MCHC 34.1 RDW 13.5 Plt Count 201 MPV 7.4 Neut % (Auto) 72.1 Lymph % (Auto) 17.1 L [place] % (Auto) 7.9 Eos % (Auto) 2.6 Baso % (Auto) 0.3 Neut # 5.4 Lymph # 1.3 [place] # 0.6 Eos # 0.2 Baso # 0.0 PT INR APTT pO2 13 L VBG pH 7.35 VBG pCO2 61 H VBG HCO3 27.2 VBG Total CO2 35.6 H VBG O2 Sat (Calc) 24.1 L VBG Base Excess 5.8 H VBG Potassium 4.4 Sodium 137.0 142 Chloride 103.0 103 Glucose 88 Lactate 1.4 FiO2 21.0 Potassium 4.6 Carbon Dioxide 29 Anion Gap 14 BUN 12 Creatinine 0.7 L Est GFR ( Amer) > 60 Est GFR (Non-Af Amer) > 60 Random Glucose 89 Calcium 9.0 Phosphorus 2.9 Magnesium 1.9 Total Bilirubin 0.9 AST 30 ALT 27 Alkaline Phosphatase 87 Troponin I < 0.0120 Total Protein 7.9 Albumin 4.5 Globulin 3.5 Albumin/Globulin Ratio 1.3 Venous Blood Potassium 4.4 08/18/16 08:05 WBC RBC Hgb Hct MCV MCH MCHC RDW Plt Count MPV Neut % (Auto) Lymph % (Auto) [place] % (Auto) Eos % (Auto) Baso % (Auto) Neut # Lymph # [place] # Eos # Baso # PT 11.9 INR 1.1 APTT 34.1 pO2 VBG pH VBG pCO2 VBG HCO3 VBG Total CO2 VBG O2 Sat (Calc) VBG Base Excess VBG Potassium Sodium Chloride Glucose Lactate FiO2 Potassium Carbon Dioxide Anion Gap BUN Creatinine Est GFR ( Amer) Est GFR (Non-Af Amer) Random Glucose Calcium Phosphorus Magnesium Total Bilirubin AST ALT Alkaline Phosphatase Troponin I Total Protein Albumin Globulin Albumin/Globulin Ratio Venous Blood Potassium Assessment & Plan - Assessment and Plan (Free Text) Assessment: 50 y/o male seen in ED for open ulceration to bilateral LE secondary to venous stasis changes Plan: Pt evaluated and chart reviewed Pt discussed with attending Dr. Lu Labs and vitals reviewed WBC: 7.5, afebrile Wound cx obtained Cleaned his legs with normal Saline, applied xeroform, DSD, MIKE to b/l LE Continue IV abx Pt to be admitted for IV abx and local wound care Podiatry will continue to follow while pt remains in-house
--- NOTE | 2016-08-18 13:27 | RAD ---
HISTORY: Sepsis Patient COMPARISON: 05/08/2016. FINDINGS: LUNGS: No active pulmonary disease. PLEURA: No significant pleural effusion identified, no pneumothorax apparent. CARDIOVASCULAR: Normal. OSSEOUS STRUCTURES: No significant abnormalities. VISUALIZED UPPER ABDOMEN: Normal. OTHER FINDINGS: None. IMPRESSION: No active disease. No significant interval change compared to the prior examination(s).
[2016-08-18] MEDS ORDERED: Pneumococcal 23-Valent Vaccine IM ONE (16:33)
--- NOTE | 2016-08-18 16:59 | CARD ---
APPROVED REPORT EKG Measurement Heart [id number] <Conclusion> Sinus rhythm with 1st degree AV block Septal infarct, age undetermined Abnormal ECG
--- NOTE | 2016-08-18 17:41 | CP.PCM.HP ---
History of Present Illness - History of Present Illness History of Present Illness: 50 yr old M admitted for worsening pain and yellow/foul smelling discharge from left leg ulcers. Patient denies trauma, fevers, chills, SOB, weakness, dizziness , numbness or tingling. Reports he is having increased difficulty walking due to the leg ulcers. He has PMHx of Chronic leg ulcer since January 2016 and has been following up with Dr. Lu, he is taking Cipro and Tylenol. He reports he is homeless. Patient has no other concerns or complaints at this time. PMD: none Specialists: Dr. Lu-podiatry PMHx: chronic leg ulcers SurgHx: wound debridement SocHx: denies Etoh/drugs; current smoker 10 cig /day x 40yrs Meds: Cipro and Tylenol Allergies: Iodine ED Course: -afebrile, VSS -Blood culture, wound culture -EKG and CXR -Tylenol 650mg PO once -Cleocin 600mg IVPB once -1L NS IV bolus Present on Admission - Present on Admission Any Indicators Present on Admission: No History of DVT/PE: No History of Uncontrolled Diabetes: No Urinary Catheter: No Decubitus Ulcer Present: No Review of Systems - Review of Systems All systems: reviewed and no additional remarkable complaints except (except for what is mentioned in HPI) Past Patient History - Infectious Disease Hx of Infectious Diseases: None - Past Medical History & Family History Past Medical History?: Yes - Past Social History Smoking Status: Current Some Days Smoker - CARDIAC Hx Cardiac Disorders: No - PULMONARY Hx Respiratory Disorders: No - NEUROLOGICAL Hx Neurological Disorder: No - HEENT Hx HEENT Problems: No - RENAL Hx Chronic Kidney Disease: No - ENDOCRINE/METABOLIC Hx Endocrine Disorders: No - HEMATOLOGICAL/ONCOLOGICAL Hx Blood Disorders: No Hx AIDS: No Hx Human Immunodeficiency Virus (HIV): No - INTEGUMENTARY Hx Dermatological Problems: Yes (CELLULITIS) - MUSCULOSKELETAL/RHEUMATOLOGICAL Hx Musculoskeletal Disorders: No Hx Falls: No - GASTROINTESTINAL Hx Gastrointestinal Disorders: No - GENITOURINARY/GYNECOLOGICAL Hx Genitourinary Disorders: No - PSYCHIATRIC Hx Psychophysiologic Disorder: No Hx Substance Use: No - SURGICAL HISTORY Hx Surgeries: No - ANESTHESIA Hx Anesthesia: No Hx Anesthesia Reactions: No Hx Malignant Hyperthermia: No Meds Allergies/Adverse Reactions: Allergies Allergy/AdvReac Type Severity Reaction Status Date / Time Iodine and Iodide Containing Allergy SHORTNESS Verified 08/18/16 08:15 Produc OF BREATH Physical Exam - Constitutional Appears: Well, Non-toxic, No Acute Distress, Unkempt (poor hygiene), Other - Head Exam Head Exam: ATRAUMATIC, NORMOCEPHALIC - Eye Exam Eye Exam: EOMI, PERRL - ENT Exam ENT Exam: Mucous Membranes Moist - Neck Exam Neck exam: Positive for: Full Rom. Negative for: Lymphadenopathy - Respiratory Exam Respiratory Exam: Clear to Auscultation Bilateral, NORMAL BREATHING PATTERN. absent: Rales, Rhonchi - Cardiovascular Exam Cardiovascular Exam: REGULAR RHYTHM, +S1, +S2 - GI/Abdominal Exam GI & Abdominal Exam: Normal Bowel Sounds, Soft (obese). absent: Distended, Tenderness - Extremities Exam Extremities exam: Positive for: full ROM (multiple ulcers in bilateral lower extremities ( left ankle 2cm stage 2 with granulation tissue, no discharge; left upper block 1 cm stage 2 with granulation tissue and surrounding erythema; right block 1 cm stage 2 with granulation tissue and surrounding erythema and ), pedal pulses present. Negative for: calf tenderness, joint swelling, pedal edema - Back Exam Back exam: absent: CVA tenderness (L), CVA tenderness (R) - Neurological Exam Neurological exam: Alert, CN II-XII Intact, Normal Gait - Psychiatric Exam Psychiatric exam: Normal Affect, Normal Mood - Skin Skin Exam: Dry, Intact, Normal Color, Warm Results - Vital Signs Recent Vital Signs: Last Vital Signs Temp 97.3 F L 08/18/16 15:58 Pulse 60 08/18/16 16:00 Resp 18 08/18/16 16:00 BP 108/78 08/18/16 15:58 Pulse Ox 97 08/18/16 15:58 - Labs Result Diagrams: 08/18/16 08:05 08/18/16 08:05 Assessment & Plan - Assessment and Plan (Free Text) Assessment: 50 yr old M admitted for worsening pain and yellow/foul smelling discharge from left leg ulcers. PMHx of Chronic leg ulcer since January 2016. Patient is stable, afebrile with no leukocytosis. 1. Cellulitis of bilateral lower extremity ulcers -stable, no leukocytosis -ID consult appreciated -Dr. Sanders: will follow recommendations -Podiatry consult appreciated-Dr. Lu: will follow recommendations -Cleocin 600mg IVPB QD -f/u BCx, wound Cx, CXR -regular diet 2. DVT prophylaxis -Lovenox 40mg SC QD - Date & Time Date: 08/18/16 Time: 14:00
[2016-08-18] MEDS: Saccharomyces Boulardi 250 mg Cap PO SCH (17:52)
[2016-08-19] MEDS: Clindamycin 600 MG in Sodium Chloride 0.9% 100 ML IVPB SCH ×3 (00:53→16:07)
[2016-08-19 07:17] LABS: HEMATOCRIT 44.2 % (35.0-51.0); MEAN CORPUSCULAR HEMOGLOBIN 31.7 pg (27.0-31.0); MEAN CORPUSCULAR HGB CONC 33.4 g/dL (33.0-37.0); RED CELL DISTRIBUTION WIDTH 13.5 % (11.5-14.5); WHITE BLOOD COUNT 6.2 K/uL (4.8-10.8)
[2016-08-19 07:44] LABS: BLOOD UREA NITROGEN 9 mg/dl (9-20); CALCIUM 8.8 mg/dL (8.4-10.2); CARBON DIOXIDE 27 mmol/L (22-30); CHLORIDE 102 mmol/L (98-107); GFR AFRICAN-AMERICAN > 60; GLUCOSE,RANDOM 93 mg/dL (75-110); SODIUM 139 mmol/l (132-148)
[2016-08-19] MEDS: Enoxaparin 40 mg Syringe SC SCH (08:55)
[2016-08-19] MEDS: Saccharomyces Boulardi 250 mg Cap PO SCH ×2 (08:55→16:07)
--- NOTE | 2016-08-19 09:05 | CP.PCM.PN ---
Subjective - Date & Time of Evaluation Date of Evaluation: 08/19/16 Time of Evaluation: 09:03 - Subjective Subjective: 50 y/o male seen at bedside this morning for bilateral leg ulcerations. Patient appears in NAD and AAOx3. He denies any acute events overnight. Patient complains of pain in his legs. THe dressings remain c/d/i. He denies of any recent F/N/V/C/SOB today. Objective - Vital Signs/Intake and Output Vital Signs (last 24 hours): Temp Pulse Resp BP Pulse Ox 98.1 F 67 20 136/61 95 08/19/16 08:58 08/19/16 08:58 08/19/16 08:58 08/19/16 08:58 08/19/16 08:58 - Medications Medications: Current Medications Acetaminophen (Tylenol 325mg Tab) 650 mg PO Q6 PRN PRN Reason: Pain, Mild (1-3) Enoxaparin Sodium (Lovenox) 40 mg SC DAILY [facility] PRN Reason: Protocol Last Admin: 08/19/16 08:55 Dose: 40 mg Clindamycin Phosphate 600 mg/ (Sodium Chloride) 104 mls @ 104 mls/hr IVPB Q8 [facility] Last Admin: 08/19/16 08:55 Dose: 104 mls/hr Ketorolac Tromethamine (Toradol) 10 mg PO Q6 PRN PRN Reason: Pain, moderate (4-7) Saccharomyces Boulardii (Florastor) 250 mg PO BID [facility] Last Admin: 08/19/16 08:55 Dose: 250 mg - Labs Labs: 08/19/16 06:45 08/19/16 06:45 PT 11.9 Seconds (9.8-13.1) 08/18/16 08:05 INR 1.1 (0.9-1.2) 08/18/16 08:05 APTT 34.1 Seconds (25.6-37.1) 08/18/16 08:05 - Constitutional Appears: Well, Non-toxic, No Acute Distress - Extremities Exam Additional comments: VASC: DP/PT: 1/4 b/l, 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: < 3 sec x 10, TG: warm to cool, no pitting or non- pitting edema noted, varicosities noted on the LE b/l DERM: Open wound on the medial aspect of the L ankle measuring 1.5cm x 1cm, the medial aspect of the middle left leg measuring 1.0cm x 1.0 cm, and right leg superficial ulceration noted to anteromedial block measuring approximately 1.5cm x 2.0cm with granular-fibrotic mixed base, wound base appears grannular with patches of fibrosis and periwound erythema, no active drainage noted from the wounds, no malodor, no tunneling or undermining noted NEURO: Grossly intact ORTHO: mild tenderness on palpation of the wounds - Neurological Exam Neurological Exam: Alert, Awake, Oriented x3 - Psychiatric Exam Psychiatric exam: Normal Affect, Normal Mood Assessment and Plan - Assessment and Plan (Free Text) Assessment: 50 y/o male seen in ED for open ulceration to bilateral LE secondary to venous stasis changes Plan: Pt evaluated and chart reviewed Pt discussed with attending Dr. Lu Labs and vitals reviewed WBC: 6.2, afebrile f/u Wound cx Cleaned his legs with normal Saline, applied xeroform, DSD, MIKE to b/l LE Continue IV abx patient instructed to remove the dressings tomorrow morning, take a shower prior to next dressing change Podiatry will continue to follow while pt remains in-house
--- NOTE | 2016-08-19 11:53 | CP.PCM.PN ---
Subjective - Date & Time of Evaluation Date of Evaluation: 08/19/16 Time of Evaluation: 07:30 - Subjective Subjective: Patient seen and examined at bedside, laying comfortably in bed, denies fever/ chills/SOB/chest pain or weakness. Reports pain in his legs is persistent, has good appetite, tolerating PO diet, has normal urine and stool output. Has no concerns or other complaints at this time. Objective - Vital Signs/Intake and Output Vital Signs (last 24 hours): Temp Pulse Resp BP Pulse Ox 98.1 F 67 20 136/61 95 08/19/16 08:58 08/19/16 08:58 08/19/16 08:58 08/19/16 08:58 08/19/16 08:58 - Medications Medications: Current Medications Acetaminophen (Tylenol 325mg Tab) 650 mg PO Q6 PRN PRN Reason: Pain, Mild (1-3) Enoxaparin Sodium (Lovenox) 40 mg SC DAILY [facility] PRN Reason: Protocol Last Admin: 08/19/16 08:55 Dose: 40 mg Clindamycin Phosphate 600 mg/ (Sodium Chloride) 104 mls @ 104 mls/hr IVPB Q8 [facility] Last Admin: 08/19/16 08:55 Dose: 104 mls/hr Ketorolac Tromethamine (Toradol) 10 mg PO Q6 PRN PRN Reason: Pain, moderate (4-7) Nicotine (Nicoderm Cq) 1 patch TD DAILY [facility] Saccharomyces Boulardii (Florastor) 250 mg PO BID [facility] Last Admin: 08/19/16 08:55 Dose: 250 mg - Labs Labs: 08/19/16 06:45 08/19/16 06:45 PT 11.9 Seconds (9.8-13.1) 08/18/16 08:05 INR 1.1 (0.9-1.2) 08/18/16 08:05 APTT 34.1 Seconds (25.6-37.1) 08/18/16 08:05 - Constitutional Appears: Well, Non-toxic, No Acute Distress, Unkempt (poor hygiene persists) - Head Exam Head Exam: ATRAUMATIC, NORMOCEPHALIC - Eye Exam Eye Exam: EOMI, PERRL - ENT Exam ENT Exam: Mucous Membranes Moist - Neck Exam Neck Exam: Full ROM. absent: Lymphadenopathy - Respiratory Exam Respiratory Exam: Clear to Ausculation Bilateral, NORMAL BREATHING PATTERN. absent: Rales, Rhonchi - Cardiovascular Exam Cardiovascular Exam: REGULAR RHYTHM, +S1, +S2 - GI/Abdominal Exam GI & Abdominal Exam: Soft, Normal Bowel Sounds. absent: Distended, Tenderness - Extremities Exam Extremities Exam: Full ROM (bilateral prominent LE varicose veins, medial left ankle ulcer 1.5cm x1 cm, clean with surrounding erythema, clean; distal left mid leg medial ulcer 1x1cm with granulation tissue and surround erythema, clean ; right block anteriormedial superficial ulcer 1x 1cm ulcer clean with granulation tissue). absent: Calf Tenderness, Pedal Edema - Back Exam Back Exam: Full ROM, NORMAL INSPECTION. absent: CVA tenderness (L), CVA tenderness (R) - Psychiatric Exam Psychiatric exam: Normal Affect, Normal Mood - Skin Skin Exam: Dry, Intact, Warm Assessment and Plan - Assessment and Plan (Free Text) Assessment: 50 yr old M admitted for worsening pain and yellow/foul smelling discharge from bilateral lower extremity ulcers, wound cultures positive for Gram negative rods and Gram positive cocci, on Day 2 of IV Clindamycin. Patient has PMHx of Chronic leg ulcer since January 2016. Patient is stable, afebrile with no leukocytosis. 1. Cellulitis of bilateral lower extremity ulcers -wound Cx ( positive for Gram negative rods and Gram positive cocci) -on Day 2 of Clindamycin 600mg IV Q8 -stable, no leukocytosis, CXR wnl -ID consult appreciated -Dr. Sanders: will follow recommendations -Podiatry consult appreciated-Dr. Lu: will follow recommendations -f/u BCx (no growth after 24 hrs), f/u ESR -regular diet 2. DVT prophylaxis -Lovenox 40mg SC QD
--- NOTE | 2016-08-19 14:31 | CP.PCM.CON ---
History of Present Illness - History of Present Illness History of Present Illness: 50 yr old M admitted for worsening pain and yellow/foul smelling discharge from left leg ulcers. Increased difficulty walking due to the leg ulcers. He has PMHx of Chronic leg ulcer since January 2016 and has been following up with Dr. Lu IV rx rdered empirically failed out pt rx PMHx: chronic leg ulcers SurgHx: wound debridement SocHx: denies Etoh/drugs; current smoker 10 cig /day x 40yrs Meds: Cipro and Tylenol Allergies: Iodine Review of Systems - Constitutional Constitutional: As Per HPI - EENT Eyes: absent: As Per HPI, Blind Spots, Blurred Vision, Change in Vision, Decreased Night Vision, Diplopia, Discharge, Dry Eye, Exophthalmos, Floaters, Irritation, Itchy Eyes, Loss of Peripheral Vision, Pain, Photophobia, Requires Corrective Lenses, Sees Flashes, Spots in Vision, Tunnel Vision, Other Visual Disturbances, Loss of Vision, Other Ears: absent: As Per HPI, Decreased Hearing, Ear Discharge, Ear Pain, Tinnitus, Abnormal Hearing, Disequilibrium, Dizziness, Other Nose/Mouth/Throat: absent: As Per HPI, Epistaxis, Nasal Congestion, Nasal Discharge, Nasal Obstruction, Nasal Trauma, Nose Pain, Post Nasal Drip, Sinus Pain, Sinus Pressure, Bleeding Gums, Change in Voice, Dental Pain, Dry Mouth, Dysphagia, Halitosis, Hoarsness, Lip Swelling, Mouth Lesions, Mouth Pain, Odynophagia, Sore Throat, Throat Swelling, Tongue Swelling, Facial Pain, Neck Pain, Neck Mass, Other - Cardiovascular Cardiovascular: absent: As Per HPI, Acrocyanosis, Chest Pain, Chest Pain at Rest , Chest Pain with Activity, Claudication, Diaphoresis, Dyspnea, Dyspnea on Exertion, Edema, Irregular Heart Rhythm, Pain Radiating to Arm/Neck/Jaw, Leg Edema, Leg Ulcers, Lightheadedness, Orthopnea, Palpitations, Paroxysmal Nocturnal Dyspnea, Pedal Edema, Radiating Pain, Rapid Heart Rate, Slow Heart Rate, Syncope, Other - Respiratory Respiratory: absent: As Per HPI, Cough, Dyspnea, Hemoptysis, Dyspnea on Exertion , Wheezing, Snoring, Stridor, Pain on Inspiration, Chest Congestion, Excessive Mucous Production, Change in Mucous Color, Pain with Coughing, Other - Gastrointestinal Gastrointestinal: absent: As Per HPI, Abdominal Pain, Belching, Bloating, Change in Bowel Habits, Change in Stool Character, Coffee Ground Emesis, Constipation, Cramping, Diarrhea, Dyspepsia, Dysphagia, Early Satiety, Excessive Flatus, Fecal Incontinence, Heartburn, Hematemesis, Hematochezia, Loose Stools, Melena, Nausea, Odynophagia, Temesmus, Vomiting, Other - Genitourinary Genitourinary: absent: As Per HPI, Change in Urinary Stream, Difficulty Urinating, Dysuria, Flank Pain, Hematuria, Pyuria, Nocturia, Urinary Incontinence, Urinary Frequency, Urinary Hesitance, Urinary Urgency, Voiding Freq/Small Amts, Freq UTI, Hx Renal/Bladder Calculi, Hx /Renal Surgery, Bladder Distension, Other - Musculoskeletal Musculoskeletal: As Per HPI - Integumentary Integumentary: Skin Pain, Wounds - Neurological Neurological: absent: As Per HPI, Abnormal Gait, Abnormal Hearing, Abnormal Movements, Abnormal Speech, Behavioral Changes, Burning Sensations, Confusion, Convulsions, Disequilibrium, Dizziness, Numbness, Focal Weakness, Frequent Falls , Headaches, Lack of Coordination, Loss of Vision, Memory Loss, Paresthesias, Radicular Pain, Restless Legs, Sensory Deficit, Syncope, Tingling, Tremor, Vertigo, Weakness, Other Visual Disturbances, Other - Psychiatric Psychiatric: absent: As Per HPI, Abnormal Sleep Pattern, Anhedonia, Anxiety, Auditory Hallucinations, Behavioral Changes, Change in Appetite, Change in Libido, Confusion, Depression, Difficulty Concentrating, Hallucinations, Homicidal Ideation, Hopelessness, Irritability, Memory Loss, Mood Swings, Panic Attacks, Paranoia, Suicidal Ideation, Visual Hallucinations, Tactile Hallucinations, Other - Endocrine Endocrine: absent: As Per HPI, Change in Body Appearance, Change in Libido, Cold Intolorance, Deepening of Voice, Excessive Sweating, Fatigue, Flushing, Heat Intolorance, Increase in Ring/Shoe/Hat Size, Palpitations, Polydipsia, Polyphagia, Polyuria, Other - Hematologic/Lymphatic Hematologic: absent: As Per HPI, Easy Bleeding, Easy Bruising, Lymphadenopathy, Other Past Patient History - Infectious Disease Hx of Infectious Diseases: None - Past Medical History & Family History Past Medical History?: Yes - Past Social History Smoking Status: Current Some Days Smoker - CARDIAC Hx Cardiac Disorders: No - PULMONARY Hx Respiratory Disorders: No - NEUROLOGICAL Hx Neurological Disorder: No - HEENT Hx HEENT Problems: No - RENAL Hx Chronic Kidney Disease: No - ENDOCRINE/METABOLIC Hx Endocrine Disorders: No - HEMATOLOGICAL/ONCOLOGICAL Hx Blood Disorders: No Hx AIDS: No Hx Human Immunodeficiency Virus (HIV): No - INTEGUMENTARY Hx Dermatological Problems: Yes (CELLULITIS) - MUSCULOSKELETAL/RHEUMATOLOGICAL Hx Musculoskeletal Disorders: No Hx Falls: No - GASTROINTESTINAL Hx Gastrointestinal Disorders: No - GENITOURINARY/GYNECOLOGICAL Hx Genitourinary Disorders: No - PSYCHIATRIC Hx Psychophysiologic Disorder: No Hx Substance Use: No - SURGICAL HISTORY Hx Surgeries: No - ANESTHESIA Hx Anesthesia: No Hx Anesthesia Reactions: No Hx Malignant Hyperthermia: No Meds Allergies/Adverse Reactions: Allergies Allergy/AdvReac Type Severity Reaction Status Date / Time Iodine and Iodide Containing Allergy SHORTNESS Verified 08/18/16 08:15 Produc OF BREATH - Medications Medications: Current Medications Acetaminophen (Tylenol 325mg Tab) 650 mg PO Q6 PRN PRN Reason: Pain, Mild (1-3) Enoxaparin Sodium (Lovenox) 40 mg SC DAILY [facility] PRN Reason: Protocol Last Admin: 08/19/16 08:55 Dose: 40 mg Clindamycin Phosphate 600 mg/ (Sodium Chloride) 104 mls @ 104 mls/hr IVPB Q8 [facility] Last Admin: 08/19/16 08:55 Dose: 104 mls/hr Ketorolac Tromethamine (Toradol) 10 mg PO Q6 PRN PRN Reason: Pain, moderate (4-7) Nicotine (Nicoderm Cq) 1 patch TD DAILY [facility] Last Admin: 08/19/16 13:18 Dose: 1 patch Saccharomyces Boulardii (Florastor) 250 mg PO BID [facility] Last Admin: 08/19/16 08:55 Dose: 250 mg Physical Exam - Constitutional Appears: Non-toxic, Chronically Ill - Head Exam Head Exam: NORMOCEPHALIC - Eye Exam Eye Exam: PERRL. absent: Scleral icterus - ENT Exam ENT Exam: Mucous Membranes Dry, Normal External Ear Exam - Neck Exam Neck exam: Negative for: Lymphadenopathy - Respiratory Exam Respiratory Exam: Decreased Breath Sounds, Rhonchi - Cardiovascular Exam Cardiovascular Exam: REGULAR RHYTHM, +S1, +S2 - GI/Abdominal Exam GI & Abdominal Exam: Diminished Bowel Sounds, Soft. absent: Tenderness - Rectal Exam Rectal Exam: Deferred - Exam Exam: NORMAL INSPECTION - Extremities Exam Extremities exam: Positive for: pedal edema, tenderness, pedal pulses present. Negative for: calf tenderness - Back Exam Back exam: absent: CVA tenderness (L), CVA tenderness (R) - Neurological Exam Neurological exam: Alert, CN II-XII Intact, Oriented x3, Reflexes Normal - Psychiatric Exam Psychiatric exam: Normal Mood Results - Vital Signs Recent Vital Signs: Last Vital Signs Temp 98.1 F 08/19/16 08:58 Pulse 67 08/19/16 08:58 Resp 20 08/19/16 08:58 BP 136/61 08/19/16 08:58 Pulse Ox 95 08/19/16 08:58 - Labs Result Diagrams: 08/19/16 06:45 08/19/16 06:45 Labs: Laboratory Results - last 24 hr 08/19/16 08/19/16 06:45 06:45 WBC 6.2 RBC 4.65 Hgb 14.8 Hct 44.2 MCV 95.0 H MCH 31.7 H MCHC 33.4 RDW 13.5 Plt Count 198 Sodium 139 Potassium 4.0 Chloride 102 Carbon Dioxide 27 Anion Gap 14 BUN 9 Creatinine 0.7 L Est GFR ( Amer) > 60 Est GFR (Non-Af Amer) > 60 Random Glucose 93 Calcium 8.8 Assessment & Plan (1) Infected ulcer of skin Status: Acute (2) Cellulitis Status: Acute (3) Chronic venous insufficiency Status: Acute (4) Leg wound, left Status: Acute (5) Multiple open wounds of lower leg Status: Acute (6) Venous stasis ulcer Status: Acute - Assessment and Plan (Free Text) Assessment: likely MRSA and or pseudomonas may need broader coverage \await sensitivities
[2016-08-19] MEDS: Cefepime 1 GM in Sodium Chloride 0.9% 100 ML IVPB SCH (21:49)
[2016-08-20] MEDS: Clindamycin 600 MG in Sodium Chloride 0.9% 100 ML IVPB SCH ×4 (01:11→18:59)
[2016-08-20] MEDS: Cefepime 1 GM in Sodium Chloride 0.9% 100 ML IVPB SCH (09:10)
[2016-08-20] MEDS: Enoxaparin 40 mg Syringe SC SCH (09:11)
[2016-08-20] MEDS: Saccharomyces Boulardi 250 mg Cap PO SCH ×2 (09:12→16:39)
--- NOTE | 2016-08-20 11:58 | CP.PCM.PN ---
Subjective - Date & Time of Evaluation Date of Evaluation: 08/20/16 Time of Evaluation: 07:40 - Subjective Subjective: Patient seen and examined at bedside, laying in bed in no acute distress, denies fevers/chills, nausea or vomiting. Reports ambulating causes bilateral leg pain to worsen. Patient has good appetite, normal urine and stool output. Has no other concerns or complaints at this time. Objective - Vital Signs/Intake and Output Vital Signs (last 24 hours): Temp Pulse Resp BP Pulse Ox 98.2 F 56 L 20 115/70 98 08/20/16 07:45 08/20/16 07:45 08/20/16 07:45 08/20/16 07:45 08/20/16 07:45 - Medications Medications: Current Medications Acetaminophen (Tylenol 325mg Tab) 650 mg PO Q6 PRN PRN Reason: Pain, Mild (1-3) Enoxaparin Sodium (Lovenox) 40 mg SC DAILY [facility] PRN Reason: Protocol Last Admin: 08/20/16 09:11 Dose: 40 mg Clindamycin Phosphate 600 mg/ (Sodium Chloride) 104 mls @ 104 mls/hr IVPB Q8 [facility] Last Admin: 08/20/16 09:11 Dose: 104 mls/hr Cefepime HCl 1 gm/ Sodium (Chloride) 100 mls @ 100 mls/hr IVPB Q12 [facility] Last Admin: 08/20/16 09:10 Dose: 100 mls/hr Ketorolac Tromethamine (Toradol) 10 mg PO Q6 PRN PRN Reason: Pain, moderate (4-7) Nicotine (Nicoderm Cq) 1 patch TD DAILY [facility] Last Admin: 08/20/16 09:12 Dose: 1 patch Saccharomyces Boulardii (Florastor) 250 mg PO BID [facility] Last Admin: 08/20/16 09:12 Dose: 250 mg - Labs Labs: 08/19/16 06:45 08/19/16 06:45 PT 11.9 Seconds (9.8-13.1) 08/18/16 08:05 INR 1.1 (0.9-1.2) 08/18/16 08:05 APTT 34.1 Seconds (25.6-37.1) 08/18/16 08:05 - Constitutional Appears: Well, Non-toxic, No Acute Distress - Head Exam Head Exam: ATRAUMATIC, NORMOCEPHALIC - Eye Exam Eye Exam: EOMI, PERRL - ENT Exam ENT Exam: Mucous Membranes Moist - Neck Exam Neck Exam: Full ROM. absent: Lymphadenopathy - Respiratory Exam Respiratory Exam: Clear to Ausculation Bilateral, NORMAL BREATHING PATTERN. absent: Rales, Rhonchi - Cardiovascular Exam Cardiovascular Exam: REGULAR RHYTHM, +S1, +S2 - GI/Abdominal Exam GI & Abdominal Exam: Soft, Normal Bowel Sounds. absent: Distended, Tenderness - Extremities Exam Extremities Exam: Full ROM. absent: Calf Tenderness, Pedal Edema (bilateral with prominent varicose veins, lower extremity ulcers improving (left medial ankle, left distal mid leg, right block (anteromedial), no discharge, with granulation tissue and surrounding erythema, non-tender) - Back Exam Back Exam: absent: CVA tenderness (L), CVA tenderness (R) - Neurological Exam Neurological Exam: Alert, Awake, CN II-XII Intact, Oriented x3 - Psychiatric Exam Psychiatric exam: Normal Affect, Normal Mood - Skin Skin Exam: Dry, Intact, Normal Color Assessment and Plan - Assessment and Plan (Free Text) Assessment: 50 yr old M admitted for worsening pain and yellow/foul smelling discharge from bilateral lower extremity ulcers, wound cultures positive for Gram negative rods and Gram positive cocci, on Day 3 of IV Clindamycin and Day 2 of IV Cefepime . Patient has PMHx of Chronic leg ulcer since January 2016. Patient is stable, afebrile with no leukocytosis. 1. Cellulitis of bilateral lower extremity ulcers -wound Cx ( positive for Acinetobacter Baumannii (sensitive to Cipro/Genta/ Imipenem) and Gram positive cocci (Pip/Tazobactam sensitive) -on Day 3 of Clindamycin 600mg IV Q8 and Day 2 of Cefepime 1gm IVPB Q12 -stable, no leukocytosis, CXR wnl -ID consult appreciated -Dr. Sanders: will follow recommendations -Podiatry consult appreciated-Dr. Lu: will follow recommendations -f/u BCx (no growth after 48hrs), ESR elevated at 40 -regular diet 2. DVT prophylaxis -Lovenox 40mg SC QD
[2016-08-20] MEDS ORDERED: Permethrin 5% CREAM TOP ONE (12:02)
--- NOTE | 2016-08-20 13:52 | CP.PCM.PN ---
Subjective - Date & Time of Evaluation Date of Evaluation: 08/20/16 Time of Evaluation: 13:50 - Subjective Subjective: 50 y/o male seen at bedside this morning for bilateral leg ulcerations. Patient appears in NAD and AAOx3. He denies any acute events overnight. Patient complains of pain in his legs. THe dressings remain c/d/i. He denies of any recent F/N/V/C/SOB today. Objective - Vital Signs/Intake and Output Vital Signs (last 24 hours): Temp Pulse Resp BP Pulse Ox 98.2 F 56 L 20 115/70 98 08/20/16 07:45 08/20/16 07:45 08/20/16 07:45 08/20/16 07:45 08/20/16 07:45 - Medications Medications: Current Medications Acetaminophen (Tylenol 325mg Tab) 650 mg PO Q6 PRN PRN Reason: Pain, Mild (1-3) Enoxaparin Sodium (Lovenox) 40 mg SC DAILY [facility] PRN Reason: Protocol Last Admin: 08/20/16 09:11 Dose: 40 mg Clindamycin Phosphate 600 mg/ (Sodium Chloride) 104 mls @ 104 mls/hr IVPB Q8 [facility] Last Admin: 08/20/16 09:11 Dose: 104 mls/hr Cefepime HCl 1 gm/ Sodium (Chloride) 100 mls @ 100 mls/hr IVPB Q12 [facility] Last Admin: 08/20/16 09:10 Dose: 100 mls/hr Ketorolac Tromethamine (Toradol) 10 mg PO Q6 PRN PRN Reason: Pain, moderate (4-7) Nicotine (Nicoderm Cq) 1 patch TD DAILY [facility] Last Admin: 08/20/16 09:12 Dose: 1 patch Saccharomyces Boulardii (Florastor) 250 mg PO BID [facility] Last Admin: 08/20/16 09:12 Dose: 250 mg - Labs Labs: 08/19/16 06:45 08/19/16 06:45 PT 11.9 Seconds (9.8-13.1) 08/18/16 08:05 INR 1.1 (0.9-1.2) 08/18/16 08:05 APTT 34.1 Seconds (25.6-37.1) 08/18/16 08:05 - Constitutional Appears: Well, Non-toxic, No Acute Distress - Extremities Exam Additional comments: VASC: DP/PT: 1/4 b/l, 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: < 3 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 x 10, TG: warm to cool, no pitting or non- pitting edema noted, varicosities noted on the LE b/l DERM: Open wound on the medial aspect of the L ankle measuring 1.5cm x 1cm, the medial aspect of the middle left leg measuring 1.0cm x 1.0 cm, and right leg superficial ulceration noted to anteromedial block measuring approximately 1.5cm x 2.0cm with granular-fibrotic mixed base, wound base appears grannular with patches of fibrosis and periwound erythema, no active drainage noted from the wounds, no malodor, no tunneling or undermining noted NEURO: Grossly intact ORTHO: mild tenderness on palpation of the wounds - Neurological Exam Neurological Exam: Alert, Awake, Oriented x3 - Psychiatric Exam Psychiatric exam: Normal Affect, Normal Mood Assessment and Plan - Assessment and Plan (Free Text) Assessment: 50 y/o male seen at bedside for open ulceration to bilateral LE secondary to venous stasis changes Plan: Pt evaluated and chart reviewed Pt discussed with attending Dr. Lu Labs and vitals reviewed WBC: afebrile Wound cx - acinteobacter bouimanni, gram positive cocci Continue IV abx patient instructed to remove the dressings tomorrow morning, take a shower prior to next dressing change Podiatry will continue to follow while pt remains in-house
--- NOTE | 2016-08-20 18:26 | CP.PCM.PN ---
Subjective - Date & Time of Evaluation Date of Evaluation: 08/20/16 Time of Evaluation: 10:00 - Subjective Subjective: events noted iv clinda/cipro in progress may need TCU Objective - Vital Signs/Intake and Output Vital Signs (last 24 hours): Temp Pulse Resp BP Pulse Ox 97.4 F L 64 20 95/64 L 97 08/20/16 16:11 08/20/16 16:11 08/20/16 16:11 08/20/16 16:11 08/20/16 16:11 - Medications Medications: Current Medications Acetaminophen (Tylenol 325mg Tab) 650 mg PO Q6 PRN PRN Reason: Pain, Mild (1-3) Enoxaparin Sodium (Lovenox) 40 mg SC DAILY [facility] PRN Reason: Protocol Last Admin: 08/20/16 09:11 Dose: 40 mg Clindamycin Phosphate 600 mg/ (Sodium Chloride) 54 mls @ 54 mls/hr IVPB Q8 [facility] Ciprofloxacin (Cipro 400mg/200ml Dsw) 400 mg in 200 mls @ 200 mls/hr IVPB Q12 [facility] Ketorolac Tromethamine (Toradol) 10 mg PO Q6 PRN PRN Reason: Pain, moderate (4-7) Last Admin: 08/20/16 16:40 Dose: 10 mg Nicotine (Nicoderm Cq) 1 patch TD DAILY [facility] Last Admin: 08/20/16 09:12 Dose: 1 patch Saccharomyces Boulardii (Florastor) 250 mg PO BID [facility] Last Admin: 08/20/16 16:39 Dose: 250 mg - Labs Labs: 08/19/16 06:45 08/19/16 06:45 PT 11.9 Seconds (9.8-13.1) 08/18/16 08:05 INR 1.1 (0.9-1.2) 08/18/16 08:05 APTT 34.1 Seconds (25.6-37.1) 08/18/16 08:05 - Constitutional Appears: Non-toxic, Chronically Ill - Head Exam Head Exam: NORMOCEPHALIC - Eye Exam Eye Exam: PERRL. absent: Scleral icterus - ENT Exam ENT Exam: Mucous Membranes Dry - Neck Exam Neck Exam: absent: Lymphadenopathy - Respiratory Exam Respiratory Exam: Decreased Breath Sounds, Rhonchi - Cardiovascular Exam Cardiovascular Exam: REGULAR RHYTHM, +S1, +S2 - GI/Abdominal Exam GI & Abdominal Exam: Distended, Soft - Rectal Exam Rectal Exam: Deferred - Extremities Exam Extremities Exam: Pedal Edema Additional comments: VASC: DP/PT: 1/4 b/l, MOTORMAN/WOMAN: < 3 sec x 10, TG: warm to cool, no pitting or non- pitting edema noted, varicosities noted on the LE b/l DERM: Open wound on the medial aspect of the L ankle measuring 1.5cm x 1cm, the medial aspect of the middle left leg measuring 1.0cm x 1.0 cm, and right leg superficial ulceration noted to anteromedial block measuring approximately 1.5cm x 2.0cm with granular-fibrotic mixed base, wound base appears grannular with patches of fibrosis and periwound erythema, no active drainage noted from the wounds, no malodor, no tunneling or undermining noted NEURO: Grossly intact ORTHO: mild tenderness on palpation of the wounds - Back Exam Back Exam: absent: CVA tenderness (L), CVA tenderness (R) Assessment and Plan (1) Infected ulcer of skin Status: Acute (2) Cellulitis Status: Acute (3) Chronic venous insufficiency Status: Acute (4) Leg wound, left Status: Acute (5) Multiple open wounds of lower leg Status: Acute (6) Venous stasis ulcer Status: Acute
[2016-08-20] MEDS ORDERED: Meropenem 1 GM in Sodium Chloride 0.9% 100 ML IVPB SCH (18:30)
[2016-08-20] MEDS: Ciprofloxacin 400mg/200ml D5W 400 MG/200 ML BAG IVPB SCH (20:57)
[2016-08-21] MEDS: Clindamycin 600 MG in Sodium Chloride 0.9% 100 ML IVPB SCH ×3 (00:34→17:35)
[2016-08-21] MEDS: Enoxaparin 40 mg Syringe SC SCH (09:15)
[2016-08-21] MEDS: Saccharomyces Boulardi 250 mg Cap PO SCH ×2 (09:15→17:33)
--- NOTE | 2016-08-21 09:57 | CP.PCM.PN ---
Subjective - Date & Time of Evaluation Date of Evaluation: 08/21/16 Time of Evaluation: 09:52 - Subjective Subjective: 50 y/o male seen at bedside for bilateral leg ulceration. Pt appears to be resting comfortably in NAD and is AAOx3. Pt denies of any acute overnight events. Pt denies of any F/N/V/C/SOB. Pt's dressing is clean, dry and intact. Objective - Vital Signs/Intake and Output Vital Signs (last 24 hours): Temp Pulse Resp BP Pulse Ox 98 F 66 20 104/55 L 91 L 08/21/16 08:08 08/21/16 08:08 08/21/16 08:08 08/21/16 08:08 08/21/16 08:08 - Medications Medications: Current Medications Acetaminophen (Tylenol 325mg Tab) 650 mg PO Q6 PRN PRN Reason: Pain, Mild (1-3) Enoxaparin Sodium (Lovenox) 40 mg SC DAILY [facility] PRN Reason: Protocol Last Admin: 08/21/16 09:15 Dose: 40 mg Clindamycin Phosphate 600 mg/ (Sodium Chloride) 104 mls @ 104 mls/hr IVPB Q8 [facility] Last Admin: 08/21/16 09:14 Dose: 104 mls/hr Ciprofloxacin (Cipro 400mg/200ml Dsw) 400 mg in 200 mls @ 200 mls/hr IVPB Q12 [facility] Last Admin: 08/20/16 20:57 Dose: 200 mls/hr Ketorolac Tromethamine (Toradol) 10 mg PO Q6 PRN PRN Reason: Pain, moderate (4-7) Last Admin: 08/20/16 16:40 Dose: 10 mg Nicotine (Nicoderm Cq) 1 patch TD DAILY [facility] Last Admin: 08/21/16 09:16 Dose: 1 patch Saccharomyces Boulardii (Florastor) 250 mg PO BID [facility] Last Admin: 08/21/16 09:15 Dose: 250 mg - Labs Labs: 08/19/16 06:45 08/19/16 06:45 PT 11.9 Seconds (9.8-13.1) 08/18/16 08:05 INR 1.1 (0.9-1.2) 08/18/16 08:05 APTT 34.1 Seconds (25.6-37.1) 08/18/16 08:05 - Constitutional Appears: Well, Non-toxic, No Acute Distress - Extremities Exam Additional comments: VASC: DP/PT pulses are 1/4 b/l, LINOLEUM FLOOR LAYER: < 3 sec to all digits, TG: warm to cool, no pitting or non-pitting edema noted DERM: Open wound on the medial aspect of the L ankle, medial aspect of the middle left leg and anteromedial block of the right leg. Wound base is fibrogranular with periwound erythema, no active drainage noted from the wounds , no malodor, no tunneling, no undermining, no probe to bone NEURO: Grossly intact ORTHO: tenderness on palpation of the wounds b/l - Neurological Exam Neurological Exam: Alert, Awake, Oriented x3 Assessment and Plan - Assessment and Plan (Free Text) Assessment: 50 y/o male seen at bedside for bilateral LE ulceration secondary to venous stasis changes Plan: Pt evaluated and chart reviewed Pt discussed with attending Dr. Lu Labs and vital s reviewed Wound cx - Acinetobacter Baumannii, S. Aureus Continue abx as per ID Wounds dressed using silvadine, ABD pads, DSD and MIKE to b/l LE Pt to weightbearing as tolerated Pt is stable from podiatry standpoint and can be discharge to subacute rehab Podiatry will continue to follow while pt is in-house
[2016-08-21] MEDS: Ciprofloxacin 400mg/200ml D5W 400 MG/200 ML BAG IVPB SCH ×2 (11:12→21:00)
--- NOTE | 2016-08-21 14:00 | CP.PCM.PN ---
Subjective - Date & Time of Evaluation Date of Evaluation: 08/21/16 Time of Evaluation: 08:00 - Subjective Subjective: afebrile on clinda/cipro can be d/c'd on both PO when ready for discharge Objective - Vital Signs/Intake and Output Vital Signs (last 24 hours): Temp Pulse Resp BP Pulse Ox 98 F 66 20 104/55 L 91 L 08/21/16 08:08 08/21/16 08:08 08/21/16 08:08 08/21/16 08:08 08/21/16 08:08 - Medications Medications: Current Medications Acetaminophen (Tylenol 325mg Tab) 650 mg PO Q6 PRN PRN Reason: Pain, Mild (1-3) Enoxaparin Sodium (Lovenox) 40 mg SC DAILY [facility] PRN Reason: Protocol Last Admin: 08/21/16 09:15 Dose: 40 mg Clindamycin Phosphate 600 mg/ (Sodium Chloride) 104 mls @ 104 mls/hr IVPB Q8 [facility] Last Admin: 08/21/16 09:14 Dose: 104 mls/hr Ciprofloxacin (Cipro 400mg/200ml Dsw) 400 mg in 200 mls @ 200 mls/hr IVPB Q12 [facility] Last Admin: 08/21/16 11:12 Dose: 200 mls/hr Ketorolac Tromethamine (Toradol) 10 mg PO Q6 PRN PRN Reason: Pain, moderate (4-7) Last Admin: 08/20/16 16:40 Dose: 10 mg Nicotine (Nicoderm Cq) 1 patch TD DAILY [facility] Last Admin: 08/21/16 09:16 Dose: 1 patch Saccharomyces Boulardii (Florastor) 250 mg PO BID [facility] Last Admin: 08/21/16 09:15 Dose: 250 mg - Labs Labs: 08/19/16 06:45 08/19/16 06:45 PT 11.9 Seconds (9.8-13.1) 08/18/16 08:05 INR 1.1 (0.9-1.2) 08/18/16 08:05 APTT 34.1 Seconds (25.6-37.1) 08/18/16 08:05 - Constitutional Appears: Non-toxic, Chronically Ill - Head Exam Head Exam: NORMOCEPHALIC - ENT Exam ENT Exam: TM's Normal Bilaterally - Neck Exam Neck Exam: Full ROM - Respiratory Exam Respiratory Exam: Decreased Breath Sounds - Cardiovascular Exam Cardiovascular Exam: REGULAR RHYTHM - GI/Abdominal Exam GI & Abdominal Exam: Distended, Soft. absent: Tenderness - Rectal Exam Rectal Exam: Deferred - Exam Exam: NORMAL INSPECTION - Extremities Exam Extremities Exam: Pedal Edema. absent: Calf Tenderness - Back Exam Back Exam: absent: CVA tenderness (L), CVA tenderness (R) - Neurological Exam Neurological Exam: Alert, Awake, Oriented x3 Assessment and Plan (1) Infected ulcer of skin Status: Acute (2) Cellulitis Status: Acute (3) Chronic venous insufficiency Status: Acute (4) Leg wound, left Status: Acute (5) Multiple open wounds of lower leg Status: Acute (6) Venous stasis ulcer Status: Acute
--- NOTE | 2016-08-21 18:22 | CP.PCM.PN ---
Subjective - Date & Time of Evaluation Date of Evaluation: 08/21/16 Time of Evaluation: 07:50 - Subjective Subjective: Patient seen and examined at bedside, laying in bed in no acute distress. Reports bilateral leg pain is persistent when he ambulates. Denies chest pain, SOB, weakness, fevers, chills or dizziness. Patient tolerating PO diet, normal urine and stool output. No concerns or complaints at this time. Objective - Vital Signs/Intake and Output Vital Signs (last 24 hours): Temp Pulse Resp BP Pulse Ox 98.2 F 62 17 134/84 98 08/21/16 15:58 08/21/16 15:58 08/21/16 15:58 08/21/16 15:58 08/21/16 15:58 - Medications Medications: Current Medications Acetaminophen (Tylenol 325mg Tab) 650 mg PO Q6 PRN PRN Reason: Pain, Mild (1-3) Enoxaparin Sodium (Lovenox) 40 mg SC DAILY [facility] PRN Reason: Protocol Last Admin: 08/21/16 09:15 Dose: 40 mg Clindamycin Phosphate 600 mg/ (Sodium Chloride) 104 mls @ 104 mls/hr IVPB Q8 [facility] Last Admin: 08/21/16 17:35 Dose: 104 mls/hr Ciprofloxacin (Cipro 400mg/200ml Dsw) 400 mg in 200 mls @ 200 mls/hr IVPB Q12 [facility] Last Admin: 08/21/16 11:12 Dose: 200 mls/hr Ketorolac Tromethamine (Toradol) 10 mg PO Q6 PRN PRN Reason: Pain, moderate (4-7) Last Admin: 08/20/16 16:40 Dose: 10 mg Nicotine (Nicoderm Cq) 1 patch TD DAILY [facility] Last Admin: 08/21/16 09:16 Dose: 1 patch Saccharomyces Boulardii (Florastor) 250 mg PO BID [facility] Last Admin: 08/21/16 17:33 Dose: 250 mg - Labs Labs: 08/19/16 06:45 08/19/16 06:45 PT 11.9 Seconds (9.8-13.1) 08/18/16 08:05 INR 1.1 (0.9-1.2) 08/18/16 08:05 APTT 34.1 Seconds (25.6-37.1) 08/18/16 08:05 - Constitutional Appears: Well, Non-toxic, No Acute Distress - Head Exam Head Exam: ATRAUMATIC, NORMOCEPHALIC - Eye Exam Eye Exam: EOMI, PERRL - ENT Exam ENT Exam: Mucous Membranes Moist - Neck Exam Neck Exam: Full ROM. absent: Lymphadenopathy - Respiratory Exam Respiratory Exam: Clear to Ausculation Bilateral, NORMAL BREATHING PATTERN. absent: Rales, Rhonchi - Cardiovascular Exam Cardiovascular Exam: REGULAR RHYTHM, +S1, +S2 - GI/Abdominal Exam GI & Abdominal Exam: Soft, Normal Bowel Sounds. absent: Distended, Tenderness - Extremities Exam Extremities Exam: Full ROM (prominent bilateral varicose veins, improving LLE mid leg and medial ankle ulcer and RLE anteromedial ulcer (with granulation tissue/surrounding erythema, no discharge, no foul odor. ). absent: Joint Swelling, Pedal Edema (bilateral dorsal foot excoriations improved) Additional comments: bilateral foot excoriations stable - Back Exam Back Exam: absent: CVA tenderness (L), CVA tenderness (R) - Neurological Exam Neurological Exam: Alert, Awake, CN II-XII Intact, Oriented x3 - Psychiatric Exam Psychiatric exam: Normal Affect, Normal Mood - Skin Skin Exam: Dry, Intact Assessment and Plan - Assessment and Plan (Free Text) Assessment: 50 yr old M admitted for worsening pain and yellow/foul smelling discharge from bilateral lower extremity ulcers, wound cultures positive for Acinetobacter Baumannii and Staph aureus , Day 4 of Clindamycin 600mg IV Q8 and Day 1 Ciprofloxacin 400mg IV Q12, d/c'd Cefepime 1gm IV s/p 2 days . Patient has PMHx of Chronic leg ulcer since January 2016. Patient is stable, afebrile with no leukocytosis. 1. Cellulitis of bilateral lower extremity ulcers -improving -wound Cx ( positive for Acinetobacter Baumannii (sensitive to Cipro/Genta/ Imipenem) and Staph aureus (TMP-SMX/clinda/genta vanco sensitive) -on Day 4 of Clindamycin 600mg IV Q8 and Day 1 Ciprofloxacin 400mg IV Q12, d/c' d Cefepime -stable, no leukocytosis, CXR wnl -ID consult appreciated -Dr. Sanders: will follow recommendations (pt may be d' cd on PO Cipro and Clinda) -Podiatry consult appreciated-Dr. Lu: will follow recommendations -f/u BCx (no growth after 72hrs), ESR elevated at 40 -regular diet 2. Bilateral foot excoriations -improved, was likely secondary to hx scabies -d/c'd isolation -d/c'd Permethrin top 3. DVT prophylaxis -Lovenox 40mg SC QD
[2016-08-22] MEDS: Clindamycin 600 MG in Sodium Chloride 0.9% 100 ML IVPB SCH ×2 (00:49→09:14)
[2016-08-22] MEDS: Enoxaparin 40 mg Syringe SC SCH (09:15)
[2016-08-22] MEDS: Saccharomyces Boulardi 250 mg Cap PO SCH (09:15)
--- NOTE | 2016-08-22 09:25 | CP.PCM.PN ---
Subjective - Date & Time of Evaluation Date of Evaluation: 08/22/16 Time of Evaluation: 08:30 - Subjective Subjective: 50 y/o male seen at bedside for bilateral leg ulceration. Pt seen resting comfortably in bed at time of visit. Pt denies of any F/N/V/C/SOB. Says he showered this morning. Denies f/n/v/c/sob/cp. Objective - Vital Signs/Intake and Output Vital Signs (last 24 hours): Temp Pulse Resp BP Pulse Ox 97.9 F 58 L 20 115/76 96 08/22/16 08:21 08/22/16 08:21 08/22/16 08:21 08/22/16 08:21 08/22/16 08:21 - Medications Medications: Current Medications Acetaminophen (Tylenol 325mg Tab) 650 mg PO Q6 PRN PRN Reason: Pain, Mild (1-3) Enoxaparin Sodium (Lovenox) 40 mg SC DAILY [facility] PRN Reason: Protocol Last Admin: 08/22/16 09:15 Dose: 40 mg Clindamycin Phosphate 600 mg/ (Sodium Chloride) 104 mls @ 104 mls/hr IVPB Q8 [facility] Last Admin: 08/22/16 09:14 Dose: 104 mls/hr Ciprofloxacin (Cipro 400mg/200ml Dsw) 400 mg in 200 mls @ 200 mls/hr IVPB Q12 [facility] Last Admin: 08/21/16 21:00 Dose: 200 mls/hr Ketorolac Tromethamine (Toradol) 10 mg PO Q6 PRN PRN Reason: Pain, moderate (4-7) Last Admin: 08/21/16 22:18 Dose: 10 mg Nicotine (Nicoderm Cq) 1 patch TD DAILY [facility] Last Admin: 08/22/16 09:15 Dose: 1 patch Saccharomyces Boulardii (Florastor) 250 mg PO BID [facility] Last Admin: 08/22/16 09:15 Dose: 250 mg - Labs Labs: 08/19/16 06:45 08/19/16 06:45 PT 11.9 Seconds (9.8-13.1) 08/18/16 08:05 INR 1.1 (0.9-1.2) 08/18/16 08:05 APTT 34.1 Seconds (25.6-37.1) 08/18/16 08:05 - Constitutional Appears: Well, Non-toxic, No Acute Distress - Extremities Exam Extremities Exam: absent: Calf Tenderness Additional comments: VASC: DP/PT pulses are 1/4 b/l, FINAL TOUCH UP PAINTER: < 3 sec to all digits, TG: warm to cool, no pitting or non-pitting edema noted DERM: Open wound on the medial aspect of the L ankle, medial aspect of the middle left leg and anteromedial block of the right leg. Wound base is fibrogranular with periwound erythema, no active drainage noted from the wounds , no malodor, no tunneling, no undermining, no probe to bone NEURO: pedal sensation is grossly intact ORTHO: tenderness on palpation of the wounds b/l - Neurological Exam Neurological Exam: Alert, Awake, Oriented x3 - Psychiatric Exam Psychiatric exam: Normal Affect, Normal Mood Assessment and Plan - Assessment and Plan (Free Text) Assessment: 50 y/o male seen at bedside for bilateral LE ulceration secondary to venous stasis changes Plan: Pt S&E at bedside Plan discussed with Dr. Lu Chart, labs and vitals reviewed: no leukocysotis, ESR is elevated (40) Wound cx : Acinetobacter Baumannii, S. Aureus Continue abx as per ID Wounds dressed using xeroform, DSD, kerlix and MIKE Pt to weightbearing as tolerated Pt is stable from podiatry standpoint and can be discharge to subacute rehab Podiatry will continue to follow
[2016-08-22] MEDS: Ciprofloxacin 400mg/200ml D5W 400 MG/200 ML BAG IVPB SCH (10:23)
--- NOTE | 2016-08-22 14:52 | CP.PCM.DIS ---
Provider - Provider Date of Admission: 08/18/16 11:29 Attending physician: Lisa Bates MD Consults: Infectious disease, Dr Sanders Podiatry service, Dr Lu Time Spent in preparation of Discharge (in minutes): 30 Diagnosis - Discharge Diagnosis (1) Cellulitis of both lower extremities Status: Acute (2) Venous stasis ulcers of both lower extremities Status: Acute Hospital Course - Lab Results Lab Results: Most Recent Lab Values WBC 6.2 K/uL (4.8-10.8) 08/19/16 06:45 RBC 4.65 Mil/uL (4.40-5.90) 08/19/16 06:45 Hgb 14.8 g/dL (12.0-18.0) 08/19/16 06:45 Hct 44.2 % (35.0-51.0) 08/19/16 06:45 MCV 95.0 fl (80.0-94.0) H 08/19/16 06:45 MCH 31.7 pg (27.0-31.0) H 08/19/16 06:45 MCHC 33.4 g/dL (33.0-37.0) 08/19/16 06:45 RDW 13.5 % (11.5-14.5) 08/19/16 06:45 Plt Count 198 K/uL (130-400) 08/19/16 06:45 MPV 7.4 fl (7.2-11.7) 08/18/16 08:05 Neut % (Auto) 72.1 % (50.0-75.0) 08/18/16 08:05 Lymph % (Auto) 17.1 % (20.0-40.0) L 08/18/16 08:05 [place] % (Auto) 7.9 % (0.0-10.0) 08/18/16 08:05 Eos % (Auto) 2.6 % (0.0-4.0) 08/18/16 08:05 Baso % (Auto) 0.3 % (0.0-2.0) 08/18/16 08:05 Neut # 5.4 K/uL (1.8-7.0) 08/18/16 08:05 Lymph # 1.3 K/uL (1.0-4.3) 08/18/16 08:05 [place] # 0.6 K/uL (0.0-0.8) 08/18/16 08:05 Eos # 0.2 K/uL (0.0-0.7) 08/18/16 08:05 Baso # 0.0 K/uL (0.0-0.2) 08/18/16 08:05 ESR 40 mm/hr (0-20) H 08/20/16 06:25 PT 11.9 Seconds (9.8-13.1) 08/18/16 08:05 INR 1.1 (0.9-1.2) 08/18/16 08:05 APTT 34.1 Seconds (25.6-37.1) 08/18/16 08:05 pO2 13 mm/Hg (30-55) L 08/18/16 07:33 VBG pH 7.35 (7.32-7.43) 08/18/16 07:33 VBG pCO2 61 mmHg (40-60) H 08/18/16 07:33 VBG HCO3 27.2 mmol/L 08/18/16 07:33 VBG Total CO2 35.6 mmol/L (22-28) H 08/18/16 07:33 VBG O2 Sat (Calc) 24.1 % (40-65) L 08/18/16 07:33 VBG Base Excess 5.8 mmol/L (0.0-2.0) H 08/18/16 07:33 VBG Potassium 4.4 mmol/L (3.6-5.2) 08/18/16 07:33 Sodium 137.0 mmol/L (132-148) 08/18/16 07:33 Chloride 103.0 mmol/L (98-107) 08/18/16 07:33 Glucose 88 mg/dL (75-110) 08/18/16 07:33 Lactate 1.4 mmol/L (0.7-2.1) 08/18/16 07:33 FiO2 21.0 % 08/18/16 07:33 Sodium 139 mmol/l (132-148) 08/19/16 06:45 Potassium 4.0 MMOL/L (3.6-5.0) 08/19/16 06:45 Chloride 102 mmol/L (98-107) 08/19/16 06:45 Carbon Dioxide 27 mmol/L (22-30) 08/19/16 06:45 Anion Gap 14 (10-20) 08/19/16 06:45 BUN 9 mg/dl (9-20) 08/19/16 06:45 Creatinine 0.7 mg/dL (0.8-1.5) L 08/19/16 06:45 Est GFR ( Amer) > 60 08/19/16 06:45 Est GFR (Non-Af Amer) > 60 08/19/16 06:45 Random Glucose 93 mg/dL (75-110) 08/19/16 06:45 Calcium 8.8 mg/dL (8.4-10.2) 08/19/16 06:45 Phosphorus 2.9 mg/dl (2.5-4.5) 08/18/16 08:05 Magnesium 1.9 MG/DL (1.6-2.3) 08/18/16 08:05 Total Bilirubin 0.9 mg/dl (0.2-1.3) 08/18/16 08:05 AST 30 U/L (17-59) 08/18/16 08:05 ALT 27 U/L (21-72) 08/18/16 08:05 Alkaline Phosphatase 87 U/L (38-126) 08/18/16 08:05 Troponin I < 0.0120 ng/mL (0.00-0.120) 08/18/16 08:05 Total Protein 7.9 G/DL (6.3-8.2) 08/18/16 08:05 Albumin 4.5 g/dL (3.5-5.0) 08/18/16 08:05 Globulin 3.5 gm/dL (2.2-3.9) 08/18/16 08:05 Albumin/Globulin Ratio 1.3 (1.0-2.1) 08/18/16 08:05 Venous Blood Potassium 4.4 mmol/L (3.6-5.2) 08/18/16 07:33 Urine Opiates Screen Negative (NEGATIVE) 08/19/16 06:40 Urine Methadone Screen Negative (NEGATIVE) 08/19/16 06:40 Ur Barbiturates Screen Negative (NEGATIVE) 08/19/16 06:40 Ur Phencyclidine Scrn Negative (NEGATIVE) 08/19/16 06:40 Ur Amphetamines Screen Negative (NEGATIVE) 08/19/16 06:40 U Benzodiazepines Scrn Negative (NEGATIVE) 08/19/16 06:40 U Oth Cocaine Metabols Negative (NEGATIVE) 08/19/16 06:40 U Cannabinoids Screen Positive (NEGATIVE) H 08/19/16 06:40 Hepatitis C Antibody Negative (NEGATIVE) 08/20/16 11:32 HIV 1&2 Antibody Screen Negative (NEGATIVE) 08/19/16 18:52 - Hospital Course Hospital Course: 50 y/o M with PMH of chronic venous stasis with lower extremity ulcers presented to ED with worsening lower extremity pain and discharge from ulcers. Patient was subsequently admitted for cellulitis of bilateral lower extremities. During admission, patient was seen by ID service and received IV antibiotics. Podiatry service was also consulted, who provided regular wound care and dressing changes. Patient improved during admission on Clindamycin + Ciprofloxacin and decision was made to discharge with close follow up to wound care clinic. Discharge Exam - Head Exam Head Exam: ATRAUMATIC, NORMOCEPHALIC - Eye Exam Eye Exam: EOMI, PERRL - ENT Exam ENT Exam: Mucous Membranes Moist - Respiratory Exam Respiratory Exam: Clear to PA & Lateral, NORMAL BREATHING PATTERN. absent: Rales, Rhonchi, Wheezes, Respiratory Distress - Cardiovascular Exam Cardiovascular Exam: REGULAR RHYTHM, +S1, +S2 - GI/Abdominal Exam GI & Abdominal Exam: Normal Bowel Sounds, Soft. absent: Distended, Tenderness - Extremities Exam Additional comments: Prominent varicose veins present in b/l lower extremity, LLE mid leg and medial ankle ulcer and RLE anteromedial ulcer are present which are improved from admission. Clean, dry, intact dressings applied today by podiatry - Neurological Exam Neurological exam: Alert, Oriented x3 - Psychiatric Exam Psychiatric exam: Normal Affect, Normal Mood Discharge Plan - Discharge Medications Prescriptions: Ciprofloxacin HCl [Cipro] 500 mg PO BID #28 tablet Clindamycin [Cleocin] 450 mg PO Q8H #42 cap - Follow Up Plan Condition: FAIR Disposition: HOME/ ROUTINE Instructions: Cellulitis (DC), Cellulitis (GEN), Abscess (GEN) Additional Instructions: Change dressings every 2 days Follow up at wound care clinic on Wednesday08/26/16 Continue with antibiotics (Ciprofloxacin + Clindamycin) for a total of 2 weeks
[2016-08-22 15:58] VITALS: BP 124/76; PULSE 60; RESP 18; TEMP 98.1; O2SAT 98
== END 2016-08-22 17:22 | disposition home or self-care (01) | DRG 277 ==
LOC: H.ER 06:31 → H.ERHOLD 11:29 → H.MEDSURG1 15:38
PROVIDERS: ADMIT Family Medicine Geriatric Medicine; ATTEND Family Medicine Geriatric Medicine
PROC: 3E0234Z Introduction of Serum, Toxoid and Vaccine into Muscle, Percutaneous Approach (ICD-10-PCS; principal; 2016-08-18)
DX: L03.116 Cellulitis of left lower limb (principal); L97.929 Non-pressure chronic ulcer of unspecified part of left lower leg with unspecified severity; L97.919 Non-pressure chronic ulcer of unspecified part of right lower leg with unspecified severity; I87.2 Venous insufficiency (chronic) (peripheral); B95.61 Methicillin susceptible Staphylococcus aureus infection as the cause of diseases classified elsewhere; L03.115 Cellulitis of right lower limb; B96.89 Other specified bacterial agents as the cause of diseases classified elsewhere; Z91.041 Radiographic dye allergy status; Z23 Encounter for immunization; Z59.0 Homelessness; I87.8 Other specified disorders of veins; F17.210 Nicotine dependence, cigarettes, uncomplicated; I83.90 Asymptomatic varicose veins of unspecified lower extremity

== ENCOUNTER 2016-08-31 23:48 | Emergency (ER) | payer MEDICAID ==
[2016-08-31 23:49] VITALS: BMI 29.2
[2016-09-01 00:03] VITALS: RESP 16
--- NOTE | 2016-09-01 00:17 | ED PDOC ---
Lower Extremity Pain/Injury Time Seen by Provider: 09/01/16 00:03 Chief Complaint (Nursing): Lower Extremity Problem/Injury Chief Complaint (Provider): left leg pain/swelling History Per: Patient History/Exam Limitations: no limitations Onset/Duration Of Symptoms: Days Current Symptoms Are (Timing): Still Present Additional History Per: Patient Additional Complaint(s): 50 y/o male history of chronic venous stasis to bl legs w/ chronic ulcerations presents with worsening left leg pain/swelling x 2 days. Patient states he was recently admitted to hospital for leg infection, given antibiotics with improvement of symptoms; patient states he is still currently taking Clindamycin PO. Patient states he came in tonight because the swelling became worse. Patient states he got a job working as a h[employer] where he stands on his feet, and is homeless so rarely has a place to rest and elevate his legs. Denies fever, nausea/vomiting, chest pain, shortness of breath, palpitations, recent travel. Past Medical History Reviewed: Historical Data, Nursing Documentation, Vital Signs Vital Signs: Last Vital Signs Temp 98.7 F 08/31/16 23:59 Pulse 74 08/31/16 23:59 Resp 16 08/31/16 23:59 BP 127/73 08/31/16 23:59 Pulse Ox 100 08/31/16 23:59 - Medical History PMH: No Chronic Diseases Denies: HIV, Chronic Kidney Disease - Surgical History Surgical History: No Surg Hx - Family History Family History: States: Unknown Family Hx - Living Arrangements Living Arrangements: Alone (homeless) - Home Medications Home Medications: Ambulatory Orders Medication Instructions Recorded Ciprofloxacin HCl [Cipro] 500 mg PO BID #28 tablet 08/22/16 Clindamycin [Cleocin] 450 mg PO Q8H #42 cap 08/22/16 - Allergies Allergies/Adverse Reactions: Allergies Allergy/AdvReac Type Severity Reaction Status Date / Time Iodine and Iodide Containing Allergy SHORTNESS Verified 08/18/16 08:15 Produc OF BREATH Review of Systems ROS Statement: Except As Marked, All Systems Reviewed And Found Negative Musculoskeletal: Positive for: Leg Pain (left) Physical Exam - Reviewed Nursing Documentation Reviewed: Yes Vital Signs Reviewed: Yes - Physical Exam Appears: Positive for: Well, Non-toxic, No Acute Distress Head Exam: Positive for: ATRAUMATIC, NORMAL INSPECTION, NORMOCEPHALIC Pulses-Dorsalis Pedis (L): 2+ Pulses-Dorsalis Pedis (R): 2+ Pulses-Post. Tibialis (L): 2+ Pulses-Post. Tibialis (R): 2+ Extremity: Positive for: Normal ROM, Pedal Edema (b/l, L>R), Capillary Refill, Swelling (L>R), Other (left medial ankle [id number] ulceration; no odor, drainage, tenderness noted. left medial block 1cm ulceration without drainage, odor; mild surrounding tenderness. Right block 2cm ulceration without swelling, tenderness , drainage.) Neurologic/Psych: Negative for: Motor/Sensory Deficits - Laboratory Results Result Diagrams: 09/01/16 00:55 09/01/16 00:55 - ECG O2 Sat by Pulse Oximetry: 100 - Progress ED Course And Treament: labs, u/s EXAM: US Duplex Bilateral Lower Extremity Veins CLINICAL HISTORY: 50 years old, male; Signs and symptoms; Swelling of limb; Lower extremity, bilateral; Additional info: Pain/swelling TECHNIQUE: Real-time ultrasound scan of the veins of the bilateral lower extremities with color Doppler flow, spectral waveform analysis and compression. COMPARISON: No relevant prior studies available. FINDINGS: Right deep veins: Normal color and spectral Doppler flow. Normal compressibility. No deep vein thrombosis from common femoral to popliteal vein. Right superficial veins: Varicose veins. No thrombosis. Left deep veins: Normal color and spectral Doppler flow. Normal compressibility. No deep vein thrombosis from common femoral to popliteal vein. Left superficial veins: Varicose veins. No thrombosis. Soft tissues: No popliteal cyst. Lymph nodes: Bilateral inguinal lymph nodes, largest measuring 4.8 x 1.7 cm on RIGHT. IMPRESSION: 1. No evidence of DVT within the lower extremities. 2. Incidental/non-acute findings are described above. Patient wounds dressed. Patient educated on findings, discharged with instructions to continue prescribed medication. Follow up with Dr. Lu at scheduled appointment. Return to ED for worsening/concerning symptoms. Disposition - Clinical Impression Clinical Impression: Chronic venous insufficiency, Venous stasis ulcers of both lower extremities, Lower extremity edema - Patient ED Disposition Is Patient to be Admitted: No Counseled Patient/Family Regarding: Studies Performed, Diagnosis, Need For Followup - Disposition Disposition: Routine/Home Disposition Time: 03:26 Condition: IMPROVED Instructions: Leg Edema (ED), Venous Insufficiency (GEN), Stasis Dermatitis (ED )
--- NOTE | 2016-09-01 01:10 | US ---
EXAM: US Duplex Bilateral Lower Extremity Veins CLINICAL HISTORY: 50 years old, male; Signs and symptoms; Swelling of limb; Lower extremity, bilateral; Additional info: Pain/swelling TECHNIQUE: Real-time ultrasound scan of the veins of the bilateral lower extremities with color Doppler flow, spectral waveform analysis and compression. COMPARISON: No relevant prior studies available. FINDINGS: Right deep veins: Normal color and spectral Doppler flow. Normal compressibility. No deep vein thrombosis from common femoral to popliteal vein. Right superficial veins: Varicose veins. No thrombosis. Left deep veins: Normal color and spectral Doppler flow. Normal compressibility. No deep vein thrombosis from common femoral to popliteal vein. Left superficial veins: Varicose veins. No thrombosis. Soft tissues: No popliteal cyst. Lymph nodes: Bilateral inguinal lymph nodes, largest measuring 4.8 x 1.7 cm on RIGHT. IMPRESSION: 1. No evidence of DVT within the lower extremities. 2. Incidental/non-acute findings are described above.
[2016-09-01 01:11] LABS: BASO % 0.5 % (0.0-2.0); EOS # 0.2 K/uL (0.0-0.7); HEMATOCRIT 36.3 % (35.0-51.0); LYMPH # 1.2 K/uL (1.0-4.3); LYMPH % 19.6 % (20.0-40.0); MEAN CELL VOLUME 94.7 fl (80.0-94.0); MEAN CORPUSCULAR HEMOGLOBIN 31.7 pg (27.0-31.0); MEAN CORPUSCULAR HGB CONC 33.4 g/dL (33.0-37.0); MEAN PLATELET VOLUME 7.4 fl (7.2-11.7); MONO # 0.5 K/uL (0.0-0.8); MONO % 7.8 % (0.0-10.0); NEUT # 4.3 K/uL (1.8-7.0); NEUT % 69.1 % (50.0-75.0); RED CELL DISTRIBUTION WIDTH 13.3 % (11.5-14.5); WHITE BLOOD COUNT 6.2 K/uL (4.8-10.8)
[2016-09-01 01:23] LABS: ALB/GLOB RATIO 1.4 (1.0-2.1); ALKALINE PHOSPHATASE 67 U/L (38-126); ALT/SGPT 25 U/L (21-72); AST/SGOT 20 U/L (17-59); BILIRUBIN,TOTAL 0.3 mg/dl (0.2-1.3); BLOOD UREA NITROGEN 10 mg/dl (9-20); CALCIUM 8.4 mg/dL (8.4-10.2); CARBON DIOXIDE 27 mmol/L (22-30); CHLORIDE 101 mmol/L (98-107); GFR AFRICAN-AMERICAN > 60; GLUCOSE,RANDOM 97 mg/dL (75-110); POTASSIUM 3.6 MMOL/L (3.6-5.0); SODIUM 138 mmol/l (132-148); TOTAL PROTEIN 6.9 G/DL (6.3-8.2)
[2016-09-01 03:43] VITALS: BP 116/71; PULSE 61; TEMP 98.2; O2SAT 96
== END 2016-09-01 03:50 | disposition home or self-care (01) ==
LOC: H.ER 23:48
DX: I87.2 Venous insufficiency (chronic) (peripheral) (principal); I87.8 Other specified disorders of veins; L97.929 Non-pressure chronic ulcer of unspecified part of left lower leg with unspecified severity; L97.919 Non-pressure chronic ulcer of unspecified part of right lower leg with unspecified severity; Z59.0 Homelessness

== ENCOUNTER 2016-09-25 03:29 | Emergency (ER) | payer MEDICAID ==
[2016-09-25 03:29] VITALS: BMI 29.2
[2016-09-25 03:46] VITALS: BP 137/87; PULSE 85; RESP 17; TEMP 98.3; O2SAT 98
--- NOTE | 2016-09-25 04:33 | ED PDOC ---
Lower Extremity Pain/Injury Time Seen by Provider: 09/25/16 03:47 Chief Complaint (Nursing): Abnormal Skin Integrity Chief Complaint (Provider): Abnormal Skin Integrity History Per: Patient History/Exam Limitations: no limitations Severity: Mild Additional Complaint(s): 50 y/o male patient presenting to the ED with chronic lower extremity pain. PT missed his wound care appointment this past Wednesday. PT is homeless and has bed seeping behavior and denies any other PMHX. Past Medical History Reviewed: Historical Data, Nursing Documentation, Vital Signs Vital Signs: Last Vital Signs Temp 98.3 F 09/25/16 03:40 Pulse 85 09/25/16 03:40 Resp 17 09/25/16 03:40 BP 137/87 09/25/16 03:40 Pulse Ox 98 09/25/16 03:40 - Medical History PMH: No Chronic Diseases Denies: HIV, Chronic Kidney Disease - Family History Family History: States: Unknown Family Hx - Social History Current smoker - smoking cessation education provided: No Alcohol: None Drugs: Denies - Home Medications Home Medications: Ambulatory Orders Medication Instructions Recorded Ciprofloxacin HCl [Cipro] 500 mg PO BID #28 tablet 08/22/16 Clindamycin [Cleocin] 450 mg PO Q8H #42 cap 08/22/16 Ibuprofen [Motrin Tab] 600 mg PO Q6 PRN #16 tab 09/25/16 - Allergies Allergies/Adverse Reactions: Allergies Allergy/AdvReac Type Severity Reaction Status Date / Time Iodine and Iodide Containing Allergy SHORTNESS Verified 08/18/16 08:15 Produc OF BREATH Review of Systems ROS Statement: Except As Marked, All Systems Reviewed And Found Negative Musculoskeletal: Positive for: Leg Pain ((+)Both legs-Chronic) Physical Exam - Reviewed Nursing Documentation Reviewed: Yes Vital Signs Reviewed: Yes - Physical Exam Appears: Positive for: Non-toxic, No Acute Distress Skin: Positive for: Normal Color, Warm, Dry Extremity: Positive for: Other (Dressings in-tact, (-)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 Negative for: Motor/Sensory Deficits - ECG O2 Sat by Pulse Oximetry: 98 (RA) Pulse Ox Interpretation: Normal Medical Decision Making Medical Decision Making: Time: 354 Initial impression: Lower Extremity Pain Initial plan: --Ibuprofen 0400-Discharge: Referral to Wound care Center and reinforcing to not miss wound care appointments. Diagnosis: Chronic Pain and Venous Stasis Scribe Attestation: Documented by Rhianna Moon, acting as a scribe for Sahil Anderson MD. Scribe Attestation: All medical record entries made by the Scribe were at my direction and personally dictated by me. I have reviewed the chart and agree that the record accurately reflects my personal performance of the history, physical exam, medical decision making, and the department course for this patient. I have also personally directed, reviewed, and agree with the discharge instructions and disposition. Disposition - Clinical Impression Clinical Impression: Venous stasis ulcers of both lower extremities - Disposition Referrals: [facility] [Outside] Disposition: Routine/Home Disposition Time: 03:55 Condition: STABLE Prescriptions: Ibuprofen [Motrin Tab] 600 mg PO Q6 PRN #16 tab PRN Reason: leg pain Instructions: Chronic Wound Care (ED)
== END 2016-09-25 06:28 | disposition home or self-care (01) ==
LOC: H.ER 03:29
DX: I87.8 Other specified disorders of veins (principal); G89.29 Other chronic pain

== ENCOUNTER 2016-09-27 00:44 | Emergency (ER) | payer MEDICAID ==
[2016-09-27 00:44] VITALS: BMI 29.2
[2016-09-27 00:55] VITALS: BP 158/79; PULSE 81; RESP 18; TEMP 98.4; O2SAT 98
--- NOTE | 2016-09-27 01:11 | ED PDOC ---
Lower Extremity Pain/Injury Time Seen by Provider: 09/27/16 00:56 Chief Complaint (Nursing): Lower Extremity Problem/Injury Chief Complaint (Provider): Lower Extremity Problem/Injury History Per: Patient History/Exam Limitations: no limitations Severity: Mild Additional Complaint(s): 50 y/o male patient presenting to the ED with chronic lower extremity pain. PT missed his wound care appointment this past Wednesday and was seen by this provider in the ED two days ago and states he lost his Ibuprofen prescription that was provided to him at that time. PT is homeless and has bed seeping behavior and denies any other PMHX. Past Medical History Reviewed: Historical Data, Nursing Documentation, Vital Signs Vital Signs: Last Vital Signs Temp 98.4 F 09/27/16 00:49 Pulse 81 09/27/16 00:49 Resp 18 09/27/16 00:49 BP 158/79 H 09/27/16 00:49 Pulse Ox 98 09/27/16 00:49 - Medical History PMH: Denies: HIV, Chronic Kidney Disease - Family History Family History: States: Unknown Family Hx - Social History Current smoker - smoking cessation education provided: No Drugs: Denies - Home Medications Home Medications: Ambulatory Orders Medication Instructions Recorded Ibuprofen [Motrin Tab] 600 mg PO Q6 PRN #16 tab 09/25/16 Ibuprofen [Motrin Tab] 600 mg PO Q6 PRN #16 tab 09/27/16 - Allergies Allergies/Adverse Reactions: Allergies Allergy/AdvReac Type Severity Reaction Status Date / Time Iodine and Iodide Containing Allergy SHORTNESS Verified 08/18/16 08:15 Produc OF BREATH Review of Systems ROS Statement: Except As Marked, All Systems Reviewed And Found Negative Musculoskeletal: Positive for: Leg Pain ((+)Both legs-Chronic.) Physical Exam - Reviewed Nursing Documentation Reviewed: Yes Vital Signs Reviewed: Yes - Physical Exam Appears: Positive for: Non-toxic, No Acute Distress Head Exam: Positive for: ATRAUMATIC, NORMAL INSPECTION, NORMOCEPHALIC Skin: Positive for: Normal Color, Warm, Dry Cardiovascular/Chest: Positive for: Regular Rate, Rhythm. Negative for: Murmur Respiratory: Positive for: Normal Breath Sounds. 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 Negative for: Motor/Sensory Deficits - ECG O2 Sat by Pulse Oximetry: 98 (RA) Pulse Ox Interpretation: Normal Medical Decision Making Medical Decision Making: Time: 55 Initial impression: Lower Extremity Pain Initial plan: --Ibuprofen 0140:Re-Evaluation/Diagnosis- New Wound dressings applied and patient will follow up at the wound care center on Wednesday. Patient states he is compliant with his Cipro and Clindamycin medications and has been provided with a new Ibuprofen prescription. Patient feels better. Discussed results and plan with patient who expresses understanding. Counseling was provided regarding the diagnosis and prognosis. All questions answered and there is agreement with the plan to discharge home with instructions. Patient stable for discharge; Return if symptoms persist or worsen. Diagnosis: Chronic Venous Stasis Scribe Attestation: Documented by Rhianna Moon, acting as a scribe for Sahil Anderson MD. Scribe Attestation: All medical record entries made by the Scribe were at my direction and personally dictated by me. I have reviewed the chart and agree that the record accurately reflects my personal performance of the history, physical exam, medical decision making, and the department course for this patient. I have also personally directed, reviewed, and agree with the discharge instructions and disposition. Disposition - Clinical Impression Clinical Impression: Venous stasis ulcers of both lower extremities - Patient ED Disposition Is Patient to be Admitted: No - Disposition Referrals: [facility] [Outside] [facility] [Outside] [facility] [Outside] Disposition: Routine/Home Disposition Time: 01:40 Condition: STABLE Prescriptions: Ibuprofen [Motrin Tab] 600 mg PO Q6 PRN #16 tab PRN Reason: leg pain Instructions: Chronic Wound Care (ED)
== END 2016-09-27 06:00 | disposition home or self-care (01) ==
LOC: H.ER 00:44
DX: I87.8 Other specified disorders of veins (principal)

== ENCOUNTER 2016-10-05 22:15 | Emergency (ER) | payer MEDICAID ==
[2016-10-05 22:16] VITALS: BMI 29.2
[2016-10-05 22:34] VITALS: BP 140/71; PULSE 76; RESP 17; TEMP 98.6; O2SAT 99
--- NOTE | 2016-10-06 00:12 | ED PDOC ---
Lower Extremity Pain/Injury Time Seen by Provider: 10/05/16 23:34 Chief Complaint (Nursing): Lower Extremity Problem/Injury Chief Complaint (Provider): Lower Extremity Problem History Per: Patient History/Exam Limitations: no limitations Onset/Duration Of Symptoms: Other (Chronic condition) Current Symptoms Are (Timing): Still Present Additional Complaint(s): 50 year old male presents to ED with complaints of drainage from an ulcer on his left leg and has a past medical history of chronic venous stasis ulcers. Patient notes that his legs appear better than usual. (-) fever or chills. PCP: Kelton Lu Past Medical History Reviewed: Historical Data, Nursing Documentation, Vital Signs Vital Signs: Last Vital Signs Temp 98.6 F 10/05/16 22:31 Pulse 76 10/05/16 22:31 Resp 17 10/05/16 22:31 BP 140/71 10/05/16 22:31 Pulse Ox 99 10/05/16 22:31 - Medical History PMH: Denies: HIV, Chronic Kidney Disease Other PMH: venous stasis ulcers - Family History Family History: States: Unknown Family Hx - Social History Alcohol: None Drugs: Denies - Home Medications Home Medications: Ambulatory Orders Medication Instructions Recorded Ibuprofen [Motrin Tab] 600 mg PO Q6 PRN #16 tab 09/25/16 Ibuprofen [Motrin Tab] 600 mg PO Q6 PRN #16 tab 09/27/16 - Allergies Allergies/Adverse Reactions: Allergies Allergy/AdvReac Type Severity Reaction Status Date / Time Iodine and Iodide Containing Allergy SHORTNESS Verified 08/18/16 08:15 Produc OF BREATH Wells Criteria for PE - Wells Criteria for Pulmonary Embolism P.E is #1 Diagnosis, or Equally Likely: No Heart Rate >100: No Hemoptysis: No Total Score: 0 Review of Systems ROS Statement: Except As Marked, All Systems Reviewed And Found Negative Constitutional: Negative for: Fever, Chills Musculoskeletal: Positive for: Leg Pain (drainage from ulcer on left leg) Physical Exam - Reviewed Nursing Documentation Reviewed: Yes Vital Signs Reviewed: Yes - Physical Exam Appears: Positive for: Non-toxic, No Acute Distress Skin: Positive for: Normal Color, Warm, Dry Respiratory: Negative for: Respiratory Distress Extremity: Positive for: Normal ROM, Other (well healing venous ulcers without drainage). Negative for: Deformity Neurologic/Psych: Positive for: Alert, Oriented. Negative for: Motor/Sensory Deficits - ECG O2 Sat by Pulse Oximetry: 99 (RA) Pulse Ox Interpretation: Normal Medical Decision Making Medical Decision Makin Initial impression: chronic venous stasis ulcers Initial plan: * Podiatry consult 7 Patient was seen by Wes Moore, podiatry resident, who dressed the patient's wounds. Patient deemed medically stable for discharge home. Counseling has been provided and patient is in agreement. Return if symptoms persist or acutely worsen. Scribe Attestation: Documented by Sandy Zhang acting as a scribe for Kali Mishra MD. Scribe Attestation: All medical record entries made by the Scribe were at my direction and personally dictated by me. I have reviewed the chart and agree that the record accurately reflects my personal performance of the history, physical exam, medical decision making, and the department course for this patient. I have also personally directed, reviewed, and agree with the discharge instructions and disposition. Disposition - Clinical Impression Clinical Impression: Venous stasis ulcers of both lower extremities - Patient ED Disposition Is Patient to be Admitted: No - Disposition Referrals: Kelton Lu DPM [[facility]] - Disposition: Routine/Home Disposition Time: 00:08 Condition: STABLE Instructions: Chronic Wound Care (ED), Pressure Ulcer (ED) - POA Present On Arrival: None
== END 2016-10-06 00:09 | disposition home or self-care (01) ==
LOC: H.ER 22:15
DX: I87.2 Venous insufficiency (chronic) (peripheral) (principal)

== ENCOUNTER 2016-10-13 11:58 | Inpatient (IN) | payer MEDICAID ==
[2016-10-13 12:08] VITALS: BMI 29.4
[2016-10-13] MEDS ORDERED: Meropenem 1 GM in Sodium Chloride 0.9% 100 ML IVPB ONE (13:00)
--- NOTE | 2016-10-13 13:13 | ED PDOC ---
HPI: Wound Care - HPI Time Seen by Provider: 10/13/16 12:30 Chief Complaint (Nursing): Wound Check Chief Complaint (Provider): Wound Check History Per: Patient Exam Limitations: no limitations Location Of Injury: Right: Leg (tibial wounds), Left: Leg, Anterior: Leg Additional Complaint(s): Can Daly is a 50 year old male that presents to the ED for a wound check of ulcers on his legs. Patient's PMD is Dr. Lu, who according to the patient , told him that he has "microorganisms in his wounds," and instructed him to come in to ED for antibiotics. Past Medical History Reviewed: Historical Data, Nursing Documentation, Vital Signs Vital Signs: Last Vital Signs Temp 98.3 F 10/13/16 12:08 Pulse 93 H 10/13/16 12:08 Resp 18 10/13/16 12:08 BP 155/79 H 10/13/16 12:08 Pulse Ox 98 10/13/16 12:08 - Medical History PMH: Denies: HIV, Chronic Kidney Disease - Family History Family History: States: Unknown Family Hx - Living Arrangements Living Arrangements: Other (nondomiciled) - Home Medications Home Medications: Ambulatory Orders Medication Instructions Recorded Amoxicillin/Clavulanate [Augmentin 1 tab PO BID 10/13/16 875 MG-125 MG Tab] - Allergies Allergies/Adverse Reactions: Allergies Allergy/AdvReac Type Severity Reaction Status Date / Time Iodine and Iodide Containing Allergy SHORTNESS Verified 08/18/16 08:15 Produc OF BREATH Review of Systems Skin: Positive for: Other (ulcers on legs b/l) Physical Exam - Reviewed Nursing Documentation Reviewed: Yes Vital Signs Reviewed: Yes - Physical Exam Appears: Positive for: Non-toxic, No Acute Distress Head Exam: Positive for: ATRAUMATIC, NORMOCEPHALIC Skin: Positive for: Normal Color, Warm Pulses-Dorsalis Pedis (L): 2+ Pulses-Dorsalis Pedis (R): 2+ Pulses-Post. Tibialis (L): 2+ Pulses-Post. Tibialis (R): 2+ Extremity: Positive for: Swelling (b/l leg lymph edema), Other (Left anterior tibia has 2.5 cm ulcer with mild discharge and surrounding erythema. Right anterior tibia has 5.5 cm ulcer with moderate drainage and surrounding erythema. ) Neurologic/Psych: Positive for: Alert, Oriented. Negative for: Motor/Sensory Deficits - Laboratory Results Result Diagrams: 10/13/16 13:20 10/13/16 14:12 - ECG O2 Sat by Pulse Oximetry: 98 (RA) Pulse Ox Interpretation: Normal - Progress ED Course And Treament: meropenem 1 gm iv x 1 dose toradol 15 mg iv x 1 dose wound care by podiatry resident d/w Dr. Bills for ID approval of meropenem d/w Dr. Butcher for admission to medical service. Medical Decision Making Medical Decision Making: Impression: Bilateral Leg Ulcers Plan: * VBG * CMP * CBC * Blood Culture * Meropenem 1 gm IVPB x 100 mL Sodium Chloride * Podiatry Consult * Reevaluation 13:20 seen by podiatry. Scribe Attestation: Documented by Allison Flores, acting as a scribe for Stacy Olivas PA-C. Provider Scribe Attestation: All medical record entries made by the Scribe were at my direction and personally dictated by me. I have reviewed the chart and agree that the record accurately reflects my personal performance of the history, physical exam, medical decision making, and the department course for this patient. I have also personally directed, reviewed, and agree with the discharge instructions and disposition. Disposition - Clinical Impression Clinical Impression: Wound infection - Patient ED Disposition Is Patient to be Admitted: Yes - Disposition Disposition Time: 16:30 Condition: FAIR
[2016-10-13 14:10] LABS: VENOUS BLOOD GAS BASE EXCESS 3.9 mmol/L (0.0-2.0); VENOUS BLOOD GAS PCO2 48 mmHg (40-60); VENOUS BLOOD GAS PO2 21 mm/Hg (30-55)
[2016-10-13 14:11] LABS: BASO % 0.5 % (0.0-2.0); EOS # 0.2 K/uL (0.0-0.7); EOS % 2.1 % (0.0-4.0); HEMOGLOBIN 13.8 g/dL (12.0-18.0); LYMPH # 1.1 K/uL (1.0-4.3); LYMPH % 13.9 % (20.0-40.0); MEAN CORPUSCULAR HEMOGLOBIN 32.2 pg (27.0-31.0); MEAN CORPUSCULAR HGB CONC 33.9 g/dL (33.0-37.0); MEAN PLATELET VOLUME 7.6 fl (7.2-11.7); MONO # 0.5 K/uL (0.0-0.8); MONO % 6.7 % (0.0-10.0); NEUT # 5.9 K/uL (1.8-7.0); NEUT % 76.8 % (50.0-75.0); NRBC % 0.1 % (0.0-0.0); RBC 4.29 Mil/uL (4.40-5.90); RED CELL DISTRIBUTION WIDTH 13.4 % (11.5-14.5); WHITE BLOOD COUNT 7.7 K/uL (4.8-10.8)
[2016-10-13 14:44] LABS: ALB/GLOB RATIO 1.3 (1.0-2.1); ALBUMIN 4.2 g/dL (3.5-5.0); ALT/SGPT 30 U/L (21-72); AST/SGOT 25 U/L (17-59); BLOOD UREA NITROGEN 12 mg/dl (9-20); CALCIUM 8.7 mg/dL (8.4-10.2); GFR AFRICAN-AMERICAN > 60; GFR NON-AFRICAN AMERICAN > 60
--- NOTE | 2016-10-13 14:54 | RAD ---
PROCEDURE: Radiographs of the bilateral Tibiae and Fibulae. HISTORY: bilateral leg wound COMPARISON: None available. TECHNIQUE: Frontal and lateral views obtained. FINDINGS: BONES: RIGHT TIBIA: No fracture or destructive lesion. LEFT TIBIA: No fracture or destructive lesion. JOINT SPACES: RIGHT TIBIA: Normal. LEFT TIBIA: Normal. SOFT TISSUES: RIGHT TIBIA: Vaguely nodular subcutaneous soft tissue swelling about the calf. There is an apparent ulcer over the distal anterior tibia. LEFT TIBIA: Vaguely nodular subcutaneous soft tissue swelling about the calf. OTHER FINDINGS: None. IMPRESSION: No osseous abnormality. Vaguely nodular soft tissue swelling about the calf bilaterally. Ulceration over the anterior distal right tibia.
--- NOTE | 2016-10-13 18:20 | CP.PCM.CON ---
<Wilman Rendon - Last Filed: 10/13/16 18:13> History of Present Illness - History of Present Illness History of Present Illness: 50 year old male presents to the ED for 2 chronic leg ulcers bilaterally. Patient states that a few days ago he noticed drainage from his right ulcer and called Dr. Lu who told him to come to the ED. He reports having these ulcers for years. He states that the ulcer is painful but he tries not to take any pain medications. He has been following Dr. Lu for the treatment of his ulcers. Dressing is clean with serous drainage strikethrough and odor noted to the dressing. He denies n/v/sob/cp/chills or f. PMHx: denies PSHx: wound debridement Allergies: Iodine SHx: denies of alcohol usage, smokes about 10 cig, a day for about 40 years Review of Systems - Constitutional Constitutional: As Per HPI Past Patient History - Infectious Disease Hx of Infectious Diseases: None - Past Medical History & Family History Past Medical History?: Yes - Past Social History Smoking Status: Light Smoker < 10 Cigarettes Daily - CARDIAC Hx Peripheral Vascular Disease: Yes - PULMONARY Hx Respiratory Disorders: No - NEUROLOGICAL Hx Neurological Disorder: No - HEENT Hx HEENT Problems: No - RENAL Hx Chronic Kidney Disease: No - ENDOCRINE/METABOLIC Hx Endocrine Disorders: No - HEMATOLOGICAL/ONCOLOGICAL Hx Human Immunodeficiency Virus (HIV): No - INTEGUMENTARY Hx Dermatological Problems: Yes Hx Cellulitis: Yes Other/Comment: Hx Chronic Venous stasis ulcers BLE - MUSCULOSKELETAL/RHEUMATOLOGICAL Hx Musculoskeletal Disorders: No Hx Falls: No - GASTROINTESTINAL Hx Gastrointestinal Disorders: No - GENITOURINARY/GYNECOLOGICAL Hx Genitourinary Disorders: No - PSYCHIATRIC Hx Psychophysiologic Disorder: No Hx Substance Use: No - SURGICAL HISTORY Hx Surgeries: No - ANESTHESIA Hx Anesthesia: No Meds Allergies/Adverse Reactions: Allergies Allergy/AdvReac Type Severity Reaction Status Date / Time Iodine and Iodide Containing Allergy SHORTNESS Verified 08/18/16 08:15 Produc OF BREATH Physical Exam - Constitutional Appears: Well, Non-toxic, No Acute Distress - Extremities Exam Additional comments: VASC: DP/PT: 1/4 b/l, 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, TG: warm to cool, no pitting or non- pitting edema noted, varicosities noted to the entire LE b/l DERM: Open wound on the medial aspect of the L ankle measuring approximately 2.5 cm x 2 cm x .1 cm with mixture of granular and fibrotic base, wound edges hyperkeratotic and periwound erthematous, no active drainage, no purulence, no probe to bone, no malodor; open wound on the anterior middle right leg measuring approximately 5.5 cm x 4.5 cm x .1 cm with 70% fibrotic and 30% granular base, erythema and maceration of periwound is noted, malodor, no probe to bone, no tunneling or undermining noted. NEURO: Grossly intact ORTHO: moderate tenderness on palpation of the wounds, no calf pain bilaterally - Neurological Exam Neurological exam: Alert, Oriented x3 - Psychiatric Exam Psychiatric exam: Normal Affect, Normal Mood Results - Vital Signs Recent Vital Signs: Last Vital Signs Temp 98.3 F 10/13/16 12:08 Pulse 93 H 10/13/16 12:08 Resp 18 10/13/16 12:08 BP 155/79 H 10/13/16 12:08 Pulse Ox 98 10/13/16 16:30 - Labs Result Diagrams: 10/13/16 13:20 10/13/16 14:12 Assessment & Plan - Assessment and Plan (Free Text) Assessment: 50 y/o male seen in ED for open ulceration to bilateral LE secondary to venous stasis changes Plan: Pt seen and evaluated in the ED Plan discussed in detail with attending Dr. Lu Labs and vitals reviewed WBC: 7.7, afebrile Given stat dose of Meropenem in ED Wound from 10/07/16 shows Enterobacter Cloacae, Coagulase Neg Staphylococcus, and Cornebacterium Species ID consulted for IV antibiotics- recommendations is appreciated X-rays reviewed: WNL Cleansed legs with normal Saline, applied xeroform, DSD to b/l LE Bactroban ordered for dressing changes once admitted Pt to be admitted for IV abx and local wound care Podiatry will continue to follow while pt remains in-house - Date & Time Date: 10/13/16 Time: 04:00 <Kelton Lu - Last Filed: 10/14/16 17:21> Meds - Medications Medications: Current Medications Acetaminophen (Tylenol 325mg Tab) 650 mg PO Q4 PRN PRN Reason: Fever >100.4 F Acetaminophen (Tylenol 325mg Tab) 650 mg PO Q4 PRN PRN Reason: Pain, moderate (4-7) Last Admin: 10/14/16 07:40 Dose: 650 mg Enoxaparin Sodium (Lovenox) 40 mg SC DAILY [facility] PRN Reason: Protocol Last Admin: 10/14/16 08:45 Dose: 40 mg Meropenem 1 gm/ Sodium (Chloride) 100 mls @ 100 mls/hr IVPB Q12@0000,1200 [facility] Last Admin: 10/14/16 12:07 Dose: 100 mls/hr Vancomycin HCl 1 gm/ Sodium (Chloride) 250 mls @ 166.667 mls/hr IVPB Q12 [facility] Mupirocin (Bactroban Ointment) 1 applic TOP DAILY [facility] Nicotine (Nicoderm Cq) 1 patch TD DAILY [facility] Last Admin: 10/14/16 08:46 Dose: 1 patch Oxycodone/Acetaminophen (Percocet 5/325 Mg Tab) 1 tab PO Q4 PRN PRN Reason: Pain, moderate (4-7) Stop: 10/16/16 21:19 Results - Vital Signs Recent Vital Signs: Last Vital Signs Temp 98.9 F 10/14/16 16:36 Pulse 103 H 10/14/16 16:36 Resp 20 10/14/16 16:36 BP 161/78 H 10/14/16 16:36 Pulse Ox 98 10/14/16 16:36 - Labs Result Diagrams: 10/14/16 06:00 10/14/16 06:00 Labs: Laboratory Results - last 24 hr 10/14/16 10/14/16 06:00 06:00 WBC 6.5 RBC 4.50 Hgb 14.3 Hct 42.3 MCV 94.1 H MCH 31.8 H MCHC 33.8 RDW 13.1 Plt Count 229 MPV 7.0 L Neut % (Auto) 65.9 Lymph % (Auto) 21.3 Stark % (Auto) 8.7 Eos % (Auto) 3.6 Baso % (Auto) 0.5 Neut # 4.3 Lymph # 1.4 Stark # 0.6 Eos # 0.2 Baso # 0.0 ESR 58 H Sodium 139 Potassium 4.3 Chloride 105 Carbon Dioxide 26 Anion Gap 12 BUN 11 Creatinine 0.7 L Est GFR ( Amer) > 60 Est GFR (Non-Af Amer) > 60 Random Glucose 89 Calcium 8.8 Assessment & Plan - Assessment and Plan (Free Text) Assessment: Instructed patient to be admitted after review of C&S . Pt has multiple resistent organisms and needs IV antibiotics to manage infection .DR Lu.
[2016-10-13] MEDS ORDERED: Oxycodone/Acetaminophen 5/325 mg Tab PO PRN (21:18)
[2016-10-13] MEDS ORDERED: Meropenem 1 GM in Sodium Chloride 0.9% 100 ML IVPB SCH (22:15)
--- NOTE | 2016-10-14 02:26 | HP ---
HISTORY OF PRESENT ILLNESS: The patient is a 50-year-old male who was admitted by the podiatry service to the medical floor because of infected lower extremity ulcers. He has had a chronic leg ulcer for quite a while and was admitted by Dr. Bello because of drainage from both lower extremities, and he was told to have cultures that were positive for bacteria that is resistant to multiple antibiotics. PAST MEDICAL HISTORY: He has a past medical history of chronic wound in the lower extremities which he started from his stay in our residential. FAMILY HISTORY: Unremarkable. SOCIAL HISTORY: He does not smoke or drink and is presently homeless. REVIEW OF SYSTEMS: Remarkable for pain and drainage of lower extremity ulcer. PHYSICAL EXAMINATION GENERAL: The patient is alert, oriented, and very talkative about his medical problems. VITAL SIGNS: Blood pressure 155/79, pulse of 93, respiratory rate 18. He is afebrile. O2 saturation is 98%. SKIN: His skin shows fair turgor with chronic stasis and leg ulcers in both lower extremities with some drainage. HEENT: Mouth shows fair hygiene. JVP is flat. LUNGS: Clear. HEART: Regular. No murmurs or gallop. ABDOMEN: Soft and nontender. No organomegaly. GENITAL AND RECTAL: Unremarkable. CENTRAL NERVOUS SYSTEM: Grossly intact. LABORATORY DATA: WBC 7.7, hemoglobin 13.8, and platelet count 29,000. Sodium 138, potassium 4.0, BUN 12, and creatinine 0.7. X-ray of the tibia and fibula shows abnormalities noted. Vaguely, nodular soft tissue swelling about the calf, ulceration over the distal right tibia. IMPRESSION: Cellulitis of the lower extremities. PLAN: Infectious disease evaluation, IV antibiotics, podiatry care. We will continue therapy as ordered. Bravo Butcher MD
[2016-10-14 07:28] LABS: BASO % 0.5 % (0.0-2.0); EOS # 0.2 K/uL (0.0-0.7); EOS % 3.6 % (0.0-4.0); HEMOGLOBIN 14.3 g/dL (12.0-18.0); LYMPH # 1.4 K/uL (1.0-4.3); LYMPH % 21.3 % (20.0-40.0); MEAN CELL VOLUME 94.1 fl (80.0-94.0); MEAN CORPUSCULAR HEMOGLOBIN 31.8 pg (27.0-31.0); MEAN CORPUSCULAR HGB CONC 33.8 g/dL (33.0-37.0); MONO # 0.6 K/uL (0.0-0.8); MONO % 8.7 % (0.0-10.0); NEUT # 4.3 K/uL (1.8-7.0); NEUT % 65.9 % (50.0-75.0); RBC 4.5 Mil/uL (4.40-5.90); RED CELL DISTRIBUTION WIDTH 13.1 % (11.5-14.5); WHITE BLOOD COUNT 6.5 K/uL (4.8-10.8)
[2016-10-14 07:42] LABS: BLOOD UREA NITROGEN 11 mg/dl (9-20); CALCIUM 8.8 mg/dL (8.4-10.2); GFR AFRICAN-AMERICAN > 60; GFR NON-AFRICAN AMERICAN > 60
--- NOTE | 2016-10-14 07:45 | CP.PCM.PN ---
<Wilman Rendon - Last Filed: 10/14/16 10:16> Subjective - Date & Time of Evaluation Date of Evaluation: 10/14/16 Time of Evaluation: 07:42 - Subjective Subjective: 50 year old male was seen at bedside for 2 chronic leg ulcers bilaterally. Patient is seen resting comfortably in bed. Reports he slept very well last night. Denies any acute events overnight. Patient is AAOx3 and in NAD. He does report pain to the lower extremity bilaterally. Dressing is c/d/i. He denies n/v /sob/cp/chills or f. Objective - Vital Signs/Intake and Output Vital Signs (last 24 hours): Temp Pulse Resp BP Pulse Ox 98.3 F 66 18 117/66 97 10/14/16 00:49 10/14/16 00:49 10/14/16 00:49 10/14/16 00:49 10/14/16 00:49 - Medications Medications: Current Medications Acetaminophen (Tylenol 325mg Tab) 650 mg PO Q4 PRN PRN Reason: Fever >100.4 F Enoxaparin Sodium (Lovenox) 40 mg SC DAILY [facility] PRN Reason: Protocol Meropenem 1 gm/ Sodium (Chloride) 100 mls @ 100 mls/hr IVPB Q12 [facility] Last Admin: 10/14/16 00:44 Dose: 100 mls/hr Mupirocin (Bactroban Ointment) 1 applic TOP BID [facility] Last Admin: 10/14/16 00:48 Dose: Not Given Nicotine (Nicoderm Cq) 1 patch TD DAILY [facility] Oxycodone/Acetaminophen (Percocet 5/325 Mg Tab) 1 tab PO Q4 PRN PRN Reason: Pain, moderate (4-7) Stop: 10/16/16 21:19 - Labs Labs: 10/14/16 06:00 - Constitutional Appears: Well, Non-toxic, No Acute Distress - Extremities Exam Additional comments: VASC: DP/PT: 1/4 b/l, [employer]: < 3 sec x 10, TG: warm to cool, no pitting or non- pitting edema noted, varicosities noted to the entire LE b/l DERM: Open wound on the medial aspect of the L ankle measuring approximately 2.5 cm x 2 cm x .1 cm with mixture of granular and fibrotic base, wound edges hyperkeratotic and periwound erthematous, mild drainage noted, no purulence, no probe to bone, no malodor; open wound on the anterior middle right leg measuring approximately 5.5 cm x 4.5 cm x .1 cm with 70% fibrotic and 30% granular base, mild drainage noted, erythema and maceration of periwound is noted, malodor, no probe to bone, no tunneling or undermining noted. NEURO: Grossly intact ORTHO: moderate tenderness on palpation of the wounds, no calf pain bilaterally - Neurological Exam Neurological Exam: Alert, Awake, Normal Gait - Psychiatric Exam Psychiatric exam: Normal Affect, Normal Mood Assessment and Plan - Assessment and Plan (Free Text) Assessment: 50 y/o male seen in ED for open ulceration to bilateral LE secondary to venous stasis changes Plan: Pt seen and evaluated at bedside Plan discussed in detail with attending Dr. Lu Labs and vitals reviewed WBC: 6.5, afebrile Given stat dose of Meropenem in ED Wound from 10/07/16 shows Enterobacter Cloacae, Coagulase Neg Staphylococcus, and Cornebacterium Species ID consulted for IV antibiotics- recommendations is appreciated X-rays reviewed: soft tissue swelling noted, no emphysema noted, bone WNL Cleansed legs with normal Saline, applied xeroform, Bactroban, DSD to b/l LE MIKE applied to the BLE for compresstion Podiatry will continue to follow while pt remains in-house <Kelton Lu - Last Filed: 10/14/16 17:24> Objective - Vital Signs/Intake and Output Vital Signs (last 24 hours): Temp Pulse Resp BP Pulse Ox 98.9 F 103 H 20 161/78 H 98 10/14/16 16:36 10/14/16 16:36 10/14/16 16:36 10/14/16 16:36 10/14/16 16:36 - Medications Medications: Current Medications Acetaminophen (Tylenol 325mg Tab) 650 mg PO Q4 PRN PRN Reason: Fever >100.4 F Acetaminophen (Tylenol 325mg Tab) 650 mg PO Q4 PRN PRN Reason: Pain, moderate (4-7) Last Admin: 10/14/16 07:40 Dose: 650 mg Enoxaparin Sodium (Lovenox) 40 mg SC DAILY [facility] PRN Reason: Protocol Last Admin: 10/14/16 08:45 Dose: 40 mg Meropenem 1 gm/ Sodium (Chloride) 100 mls @ 100 mls/hr IVPB Q12@0000,1200 [facility] Last Admin: 10/14/16 12:07 Dose: 100 mls/hr Vancomycin HCl 1 gm/ Sodium (Chloride) 250 mls @ 166.667 mls/hr IVPB Q12 [facility] Mupirocin (Bactroban Ointment) 1 applic TOP DAILY [facility] Nicotine (Nicoderm Cq) 1 patch TD DAILY [facility] Last Admin: 10/14/16 08:46 Dose: 1 patch Oxycodone/Acetaminophen (Percocet 5/325 Mg Tab) 1 tab PO Q4 PRN PRN Reason: Pain, moderate (4-7) Stop: 10/16/16 21:19 - Labs Labs: 10/14/16 06:00 10/14/16 06:00 Assessment and Plan - Assessment and Plan (Free Text) Plan: Pt seen at bedside with resident and agree with above findings . Labs reviewed as noted above as well as xray findings .DR LU .
[2016-10-14] MEDS: Enoxaparin 40 mg Syringe SC SCH (08:45)
--- NOTE | 2016-10-14 09:09 | CP.PCM.PN ---
Subjective - Date & Time of Evaluation Date of Evaluation: 10/14/16 Time of Evaluation: 09:10 - Subjective Subjective: NO APPARENT DISTRESS PODIATRY CARE IN PROGRESS Objective - Vital Signs/Intake and Output Vital Signs (last 24 hours): Temp Pulse Resp BP Pulse Ox 98.1 F 73 20 123/73 96 10/14/16 07:44 10/14/16 07:44 10/14/16 07:44 10/14/16 07:44 10/14/16 07:44 - Medications Medications: Current Medications Acetaminophen (Tylenol 325mg Tab) 650 mg PO Q4 PRN PRN Reason: Fever >100.4 F Enoxaparin Sodium (Lovenox) 40 mg SC DAILY [facility] PRN Reason: Protocol Last Admin: 10/14/16 08:45 Dose: 40 mg Meropenem 1 gm/ Sodium (Chloride) 100 mls @ 100 mls/hr IVPB Q12@0000,1200 [facility] Mupirocin (Bactroban Ointment) 1 applic TOP BID [facility] Last Admin: 10/14/16 00:48 Dose: Not Given Nicotine (Nicoderm Cq) 1 patch TD DAILY [facility] Last Admin: 10/14/16 08:46 Dose: 1 patch Oxycodone/Acetaminophen (Percocet 5/325 Mg Tab) 1 tab PO Q4 PRN PRN Reason: Pain, moderate (4-7) Stop: 10/16/16 21:19 - Labs Labs: 10/14/16 06:00 10/14/16 06:00 - Constitutional Appears: No Acute Distress - Head Exam Head Exam: ATRAUMATIC, NORMAL INSPECTION, NORMOCEPHALIC - Eye Exam Eye Exam: EOMI, Normal appearance, PERRL Pupil Exam: NORMAL ACCOMODATION, PERRL - ENT Exam ENT Exam: Mucous Membranes Moist, Normal Exam - Neck Exam Neck Exam: Full ROM, Normal Inspection. absent: Lymphadenopathy - Respiratory Exam Respiratory Exam: Clear to Ausculation Bilateral, NORMAL BREATHING PATTERN - Cardiovascular Exam Cardiovascular Exam: REGULAR RHYTHM, +S1, +S2. absent: Murmur - GI/Abdominal Exam GI & Abdominal Exam: Soft, Normal Bowel Sounds. absent: Tenderness - Rectal Exam Rectal Exam: NORMAL INSPECTION - Extremities Exam Extremities Exam: Full ROM, Normal Capillary Refill, Normal Inspection. 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
[2016-10-14] MEDS: Meropenem 1 GM in Sodium Chloride 0.9% 100 ML IVPB SCH (12:07)
--- NOTE | 2016-10-14 17:27 | CP.PCM.PN ---
Subjective - Date & Time of Evaluation Date of Evaluation: 10/14/16 Time of Evaluation: 09:15 - Subjective Subjective: pt seen for infected ulcers of lower legs .These wounds are chronic in nature . Objective - Vital Signs/Intake and Output Vital Signs (last 24 hours): Temp Pulse Resp BP Pulse Ox 98.9 F 103 H 20 161/78 H 98 10/14/16 16:36 10/14/16 16:36 10/14/16 16:36 10/14/16 16:36 10/14/16 16:36 - Medications Medications: Current Medications Acetaminophen (Tylenol 325mg Tab) 650 mg PO Q4 PRN PRN Reason: Fever >100.4 F Acetaminophen (Tylenol 325mg Tab) 650 mg PO Q4 PRN PRN Reason: Pain, moderate (4-7) Last Admin: 10/14/16 07:40 Dose: 650 mg Enoxaparin Sodium (Lovenox) 40 mg SC DAILY [facility] PRN Reason: Protocol Last Admin: 10/14/16 08:45 Dose: 40 mg Meropenem 1 gm/ Sodium (Chloride) 100 mls @ 100 mls/hr IVPB Q12@0000,1200 [facility] Last Admin: 10/14/16 12:07 Dose: 100 mls/hr Vancomycin HCl 1 gm/ Sodium (Chloride) 250 mls @ 166.667 mls/hr IVPB Q12 [facility] Mupirocin (Bactroban Ointment) 1 applic TOP DAILY [facility] Nicotine (Nicoderm Cq) 1 patch TD DAILY [facility] Last Admin: 10/14/16 08:46 Dose: 1 patch Oxycodone/Acetaminophen (Percocet 5/325 Mg Tab) 1 tab PO Q4 PRN PRN Reason: Pain, moderate (4-7) Stop: 10/16/16 21:19 - Labs Labs: 10/14/16 06:00 10/14/16 06:00 - Extremities Exam Extremities Exam: Normal Capillary Refill, Pedal Edema Additional comments: O/Venous ulcers infected b/l /Edema b/l Assessment and Plan - Assessment and Plan (Free Text) Assessment: Infected stasis ulcers r>> l. Plan: P/IV antibiotics as per I/d dept Bactroban /Xeroform dressings with jerry bandages daily . Refer to Resident note .
--- NOTE | 2016-10-15 07:18 | CP.PCM.PN ---
Subjective - Date & Time of Evaluation Date of Evaluation: 10/15/16 Time of Evaluation: 07:17 - Subjective Subjective: 50 year old male was seen at bedside for 2 chronic leg ulcers bilaterally. Patient is seen resting comfortably in bed. Patient is AAOx3 and in NAD. He does report pain to the lower extremity bilaterally. He rates the pain 8/10 and describes it as a throbbing pain that stays localized at the wound sites. Dressing is c/d/i. He denies n/v/sob/cp/chills or f. Objective - Vital Signs/Intake and Output Vital Signs (last 24 hours): Temp Pulse Resp BP Pulse Ox 98.9 F 103 H 20 161/78 H 98 10/14/16 16:36 10/14/16 16:36 10/14/16 16:36 10/14/16 16:36 10/14/16 16:36 - Medications Medications: Current Medications Acetaminophen (Tylenol 325mg Tab) 650 mg PO Q4 PRN PRN Reason: Fever >100.4 F Acetaminophen (Tylenol 325mg Tab) 650 mg PO Q4 PRN PRN Reason: Pain, moderate (4-7) Last Admin: 10/14/16 21:36 Dose: 650 mg Enoxaparin Sodium (Lovenox) 40 mg SC DAILY [facility] PRN Reason: Protocol Last Admin: 10/14/16 08:45 Dose: 40 mg Meropenem 1 gm/ Sodium (Chloride) 100 mls @ 100 mls/hr IVPB Q12@0000,1200 [facility] Last Admin: 10/15/16 00:00 Dose: 100 mls/hr Vancomycin HCl 1 gm/ Sodium (Chloride) 250 mls @ 166.667 mls/hr IVPB Q12 [facility] Last Admin: 10/14/16 21:31 Dose: 166.667 mls/hr Mupirocin (Bactroban Ointment) 1 applic TOP DAILY [facility] Nicotine (Nicoderm Cq) 1 patch TD DAILY [facility] Last Admin: 10/14/16 08:46 Dose: 1 patch Oxycodone/Acetaminophen (Percocet 5/325 Mg Tab) 1 tab PO Q4 PRN PRN Reason: Pain, moderate (4-7) Stop: 10/16/16 21:19 - Labs Labs: 10/14/16 06:00 10/14/16 06:00 - Constitutional Appears: Well, Non-toxic, No Acute Distress - Extremities Exam Additional comments: VASC: DP/PT: 1/4 b/l, PATIENT CARE: < 3 sec x 10, TG: warm to cool, no pitting or non- pitting edema noted, varicosities noted to the entire LE b/l DERM: Open wound on the medial aspect of the L ankle measuring approximately 2.5 cm x 2 cm x .1 cm with mixture of granular and fibrotic base, wound edges hyperkeratotic and periwound erthematous, mild drainage noted, no purulence, no probe to bone, no malodor; open wound on the anterior middle right leg measuring approximately 5.5 cm x 4.5 cm x .1 cm with 70% fibrotic and 30% granular base, mild drainage noted, erythema and maceration of periwound is noted, malodor, no probe to bone, no tunneling or undermining noted. NEURO: Grossly intact ORTHO: moderate tenderness on palpation of the wounds, no calf pain bilaterally - Neurological Exam Neurological Exam: Alert, Awake - Psychiatric Exam Psychiatric exam: Normal Affect, Normal Mood Assessment and Plan - Assessment and Plan (Free Text) Assessment: 50 y/o male seen in ED for open ulceration to bilateral LE secondary to venous stasis changes Plan: Pt seen and evaluated at bedside Plan discussed in detail with attending Dr. Lu Labs and vitals reviewed Given stat dose of Meropenem in ED Wound from 10/07/16 shows Enterobacter Cloacae, Coagulase Neg Staphylococcus, and Cornebacterium Species ID consulted for IV antibiotics- recommendations is appreciated X-rays reviewed: soft tissue swelling noted, no emphysema noted, bone WNL Dressing changed: applied xeroform, Bactroban, DSD to b/l LE MIKE applied to the BLE for compresstion Podiatry will continue to follow while pt remains in-house
--- NOTE | 2016-10-15 08:37 | CP.PCM.PN ---
Subjective - Date & Time of Evaluation Date of Evaluation: 10/15/16 Time of Evaluation: 08:38 - Subjective Subjective: FEELS BETTER PODIATRY NCARE IN PROGRESS Objective - Vital Signs/Intake and Output Vital Signs (last 24 hours): Temp Pulse Resp BP Pulse Ox 97.8 F 61 20 127/70 99 10/15/16 08:02 10/15/16 08:02 10/15/16 08:02 10/15/16 08:02 10/15/16 08:02 - Medications Medications: Current Medications Acetaminophen (Tylenol 325mg Tab) 650 mg PO Q4 PRN PRN Reason: Fever >100.4 F Acetaminophen (Tylenol 325mg Tab) 650 mg PO Q4 PRN PRN Reason: Pain, moderate (4-7) Last Admin: 10/14/16 21:36 Dose: 650 mg Enoxaparin Sodium (Lovenox) 40 mg SC DAILY [facility] PRN Reason: Protocol Last Admin: 10/14/16 08:45 Dose: 40 mg Meropenem 1 gm/ Sodium (Chloride) 100 mls @ 100 mls/hr IVPB Q12@0000,1200 [facility] Last Admin: 10/15/16 00:00 Dose: 100 mls/hr Vancomycin HCl 1 gm/ Sodium (Chloride) 250 mls @ 166.667 mls/hr IVPB Q12 [facility] Last Admin: 10/14/16 21:31 Dose: 166.667 mls/hr Mupirocin (Bactroban Ointment) 1 applic TOP DAILY [facility] Nicotine (Nicoderm Cq) 1 patch TD DAILY [facility] Last Admin: 10/14/16 08:46 Dose: 1 patch Oxycodone/Acetaminophen (Percocet 5/325 Mg Tab) 1 tab PO Q4 PRN PRN Reason: Pain, moderate (4-7) Stop: 10/16/16 21:19 - Labs Labs: 10/14/16 06:00 10/14/16 06:00 - Constitutional Appears: No Acute Distress - Head Exam Head Exam: ATRAUMATIC, NORMAL INSPECTION, NORMOCEPHALIC - Eye Exam Eye Exam: EOMI, Normal appearance, PERRL Pupil Exam: NORMAL ACCOMODATION, PERRL - ENT Exam ENT Exam: Mucous Membranes Moist, Normal Exam - Neck Exam Neck Exam: Full ROM, Normal Inspection. absent: Lymphadenopathy - Respiratory Exam Respiratory Exam: Clear to Ausculation Bilateral, NORMAL BREATHING PATTERN - Cardiovascular Exam Cardiovascular Exam: REGULAR RHYTHM, +S1, +S2. absent: Murmur - GI/Abdominal Exam GI & Abdominal Exam: Soft, Normal Bowel Sounds. absent: Tenderness - Rectal Exam Rectal Exam: NORMAL INSPECTION - Extremities Exam Extremities Exam: Full ROM, Normal Capillary Refill. absent: Joint Swelling, Pedal Edema Additional comments: CELLULITIS OF LEGS - Back Exam Back Exam: NORMAL INSPECTION - Neurological Exam Neurological Exam: Alert, Awake, CN II-XII Intact, Normal Gait, Oriented x3 - Psychiatric Exam Psychiatric exam: Normal Affect, Normal Mood - Skin Skin Exam: Dry, Intact, Normal Color, Warm Assessment and Plan - Assessment and Plan (Free Text) Assessment: CELLULITIS OF LEGS--DRUG RESISTANT BACTERIA HOMELESSNESS Plan: WILL DISCUS THE POSSIBILITY OF D/C TO SUBACUTE CARE WITH IV ANTIBIOTICS [WITH PODIATRY AND ID]
[2016-10-15] MEDS: Enoxaparin 40 mg Syringe SC SCH (08:56)
[2016-10-15] MEDS: Meropenem 1 GM in Sodium Chloride 0.9% 100 ML IVPB SCH ×3 (12:33→23:43)
[2016-10-16 08:27] VITALS: PULSE 63
--- NOTE | 2016-10-16 08:53 | CP.PCM.PN ---
Subjective - Date & Time of Evaluation Date of Evaluation: 10/16/16 Time of Evaluation: 08:00 - Subjective Subjective: 50 year old male was seen at bedside for 2 chronic leg ulcers bilaterally. Patient is seen resting comfortably in bed, NAD, and [id number]. He states that he has the same pain as yesterday, rating the pain 8/10 and describes it as a throbbing pain that stays localized at the wound sites. Dressing is c/d/i. He denies n/v/sob/cp/chills or f. Objective - Vital Signs/Intake and Output Vital Signs (last 24 hours): Temp Pulse Resp BP Pulse Ox 97.5 F L 63 20 148/85 98 10/16/16 08:26 10/16/16 08:26 10/16/16 08:26 10/16/16 08:26 10/16/16 08:26 - Medications Medications: Current Medications Acetaminophen (Tylenol 325mg Tab) 650 mg PO Q4 PRN PRN Reason: Fever >100.4 F Acetaminophen (Tylenol 325mg Tab) 650 mg PO Q4 PRN PRN Reason: Pain, moderate (4-7) Last Admin: 10/15/16 19:42 Dose: 650 mg Enoxaparin Sodium (Lovenox) 40 mg SC DAILY [facility] PRN Reason: Protocol Last Admin: 10/15/16 08:56 Dose: 40 mg Meropenem 1 gm/ Sodium (Chloride) 100 mls @ 100 mls/hr IVPB Q12@0000,1200 [facility] Last Admin: 10/15/16 23:43 Dose: 100 mls/hr Vancomycin HCl 1 gm/ Sodium (Chloride) 250 mls @ 166.667 mls/hr IVPB Q12 [facility] Last Admin: 10/15/16 21:02 Dose: 166.667 mls/hr Mupirocin (Bactroban Ointment) 1 applic TOP DAILY [facility] Last Admin: 10/15/16 10:23 Dose: Not Given Nicotine (Nicoderm Cq) 1 patch TD DAILY [facility] Last Admin: 10/15/16 10:30 Dose: 1 patch Oxycodone/Acetaminophen (Percocet 5/325 Mg Tab) 1 tab PO Q4 PRN PRN Reason: Pain, moderate (4-7) Stop: 10/16/16 21:19 - Labs Labs: 10/14/16 06:00 10/14/16 06:00 - Constitutional Appears: Well, Non-toxic, No Acute Distress - Extremities Exam Additional comments: VASC: DP/PT: 1/4 b/l, SNOUT PULLER: < 3 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 10, TG: warm to cool, no pitting or non- pitting edema noted, varicosities noted to the entire LE b/l DERM: Open wound on the medial aspect of the L ankle measuring approximately 2.5 cm x 2 cm x .1 cm with mixture of granular and fibrotic base, wound edges hyperkeratotic and periwound erthematous, mild drainage noted, no purulence, no probe to bone, no malodor; open wound on the anterior middle right leg measuring approximately 5.5 cm x 4.5 cm x .1 cm with 70% fibrotic and 30% granular base, mild drainage noted, erythema and maceration of periwound is noted, malodor, no probe to bone, no tunneling or undermining noted. Xerosis noted to the calves. NEURO: Grossly intact ORTHO: moderate tenderness on palpation of the wounds, no calf pain bilaterally - Neurological Exam Neurological Exam: Alert, Awake, Oriented x3 - Psychiatric Exam Psychiatric exam: Normal Affect, Normal Mood Assessment and Plan - Assessment and Plan (Free Text) Assessment: 50 y/o male seen in ED for open ulceration to bilateral LE secondary to venous stasis changes Plan: Pt seen and evaluated at bedside Plan discussed in detail with attending Dr. Lu Labs and vitals reviewed Wound from 10/07/16 shows Enterobacter Cloacae, Coagulase Neg Staphylococcus, and Cornebacterium Species C/W Meropenem and Vanco per ID X-rays reviewed: soft tissue swelling noted, no emphysema noted, bone WNL Dressing changed: applied xeroform, Bactroban, DSD to b/l LE MIKE applied to the BLE for compression Patient is stable from podiatry standpoint. Podiatry will continue to follow while pt remains in-house
[2016-10-16] MEDS: Enoxaparin 40 mg Syringe SC SCH (08:58)
[2016-10-16] MEDS: Meropenem 1 GM in Sodium Chloride 0.9% 100 ML IVPB SCH (12:08)
--- NOTE | 2016-10-16 12:28 | CP.PCM.PCO ---
Physician Communication Note - Physician Communication Note Physician Communication Note: Pt refuses picc line. Needs IV abx for at least [address] Diego
--- NOTE | 2016-10-16 12:46 | CP.PCM.PN ---
Subjective - Date & Time of Evaluation Date of Evaluation: 10/16/16 Time of Evaluation: 12:47 - Subjective Subjective: CELLULITIS OF LEGS GRADUALLY IMPROVING PT REFUSES PICC LINE PLACEMENT Objective - Vital Signs/Intake and Output Vital Signs (last 24 hours): Temp Pulse Resp BP Pulse Ox 97.5 F L 63 20 148/85 98 10/16/16 08:26 10/16/16 08:26 10/16/16 08:26 10/16/16 08:26 10/16/16 08:26 - Medications Medications: Current Medications Acetaminophen (Tylenol 325mg Tab) 650 mg PO Q4 PRN PRN Reason: Fever >100.4 F Acetaminophen (Tylenol 325mg Tab) 650 mg PO Q4 PRN PRN Reason: Pain, moderate (4-7) Last Admin: 10/16/16 12:08 Dose: 650 mg Enoxaparin Sodium (Lovenox) 40 mg SC DAILY [facility] PRN Reason: Protocol Last Admin: 10/16/16 08:58 Dose: 40 mg Meropenem 1 gm/ Sodium (Chloride) 100 mls @ 100 mls/hr IVPB Q12@0000,1200 [facility] Last Admin: 10/16/16 12:08 Dose: 100 mls/hr Vancomycin HCl 1 gm/ Sodium (Chloride) 250 mls @ 166.667 mls/hr IVPB Q12 [facility] Last Admin: 10/16/16 08:59 Dose: 166.667 mls/hr Mupirocin (Bactroban Ointment) 1 applic TOP DAILY [facility] Last Admin: 10/16/16 09:00 Dose: Not Given Nicotine (Nicoderm Cq) 1 patch TD DAILY [facility] Last Admin: 10/16/16 08:59 Dose: 1 patch Oxycodone/Acetaminophen (Percocet 5/325 Mg Tab) 1 tab PO Q4 PRN PRN Reason: Pain, moderate (4-7) Stop: 10/16/16 21:19 - Labs Labs: 10/14/16 06:00 10/14/16 06:00 - Constitutional Appears: No Acute Distress - Head Exam Head Exam: ATRAUMATIC, NORMAL INSPECTION, NORMOCEPHALIC - Eye Exam Eye Exam: EOMI, Normal appearance, PERRL Pupil Exam: NORMAL ACCOMODATION, PERRL - ENT Exam ENT Exam: Mucous Membranes Moist, Normal Exam - Neck Exam Neck Exam: Full ROM, Normal Inspection. absent: Lymphadenopathy - Respiratory Exam Respiratory Exam: Clear to Ausculation Bilateral, NORMAL BREATHING PATTERN - Cardiovascular Exam Cardiovascular Exam: REGULAR RHYTHM, +S1, +S2. absent: Murmur - GI/Abdominal Exam GI & Abdominal Exam: Soft, Normal Bowel Sounds. absent: Tenderness - Rectal Exam Rectal Exam: NORMAL INSPECTION - Extremities Exam Extremities Exam: Full ROM, Normal Capillary Refill, Normal Inspection. absent : Joint Swelling, Pedal Edema - Back Exam Back Exam: NORMAL INSPECTION - Neurological Exam Neurological Exam: Alert, Awake, CN II-XII Intact, Normal Gait, Oriented x3 - Psychiatric Exam Psychiatric exam: Normal Affect, Normal Mood - Skin Skin Exam: Dry, Intact, Normal Color, Warm Assessment and Plan - Assessment and Plan (Free Text) Assessment: CELLULITIS OF LEGS PERIPHEARAL VASC DZ Plan: DISCHARGE TO SUBACUTE CARE ON IV ANTIBIOTICS X 2 MORE WEEKS
[2016-10-16 15:59] VITALS: BP 113/63; RESP 18; TEMP 98.6; O2SAT 95
--- NOTE | 2016-10-17 10:14 | CP.PCM.DIS ---
Provider - Provider Date of Admission: 10/13/16 16:56 Attending physician: Bravo Butcher MD Time Spent in preparation of Discharge (in minutes): 35 Diagnosis - Discharge Diagnosis (1) Cellulitis and abscess of leg Status: Acute (2) Cellulitis of both lower extremities Status: Acute (3) Chronic venous insufficiency Status: Acute Hospital Course - Lab Results Lab Results: Most Recent Lab Values WBC 6.5 K/uL (4.8-10.8) 10/14/16 06:00 RBC 4.50 Mil/uL (4.40-5.90) 10/14/16 06:00 Hgb 14.3 g/dL (12.0-18.0) 10/14/16 06:00 Hct 42.3 % (35.0-51.0) 10/14/16 06:00 MCV 94.1 fl (80.0-94.0) H 10/14/16 06:00 MCH 31.8 pg (27.0-31.0) H 10/14/16 06:00 MCHC 33.8 g/dL (33.0-37.0) 10/14/16 06:00 RDW 13.1 % (11.5-14.5) 10/14/16 06:00 Plt Count 229 K/uL (130-400) 10/14/16 06:00 MPV 7.0 fl (7.2-11.7) L 10/14/16 06:00 Neut % (Auto) 65.9 % (50.0-75.0) 10/14/16 06:00 Lymph % (Auto) 21.3 % (20.0-40.0) 10/14/16 06:00 [place] % (Auto) 8.7 % (0.0-10.0) 10/14/16 06:00 Eos % (Auto) 3.6 % (0.0-4.0) 10/14/16 06:00 Baso % (Auto) 0.5 % (0.0-2.0) 10/14/16 06:00 Neut # 4.3 K/uL (1.8-7.0) 10/14/16 06:00 Lymph # 1.4 K/uL (1.0-4.3) 10/14/16 06:00 [place] # 0.6 K/uL (0.0-0.8) 10/14/16 06:00 Eos # 0.2 K/uL (0.0-0.7) 10/14/16 06:00 Baso # 0.0 K/uL (0.0-0.2) 10/14/16 06:00 ESR 48 mm/hr (0-20) H 10/15/16 04:50 pO2 21 mm/Hg (30-55) L 10/13/16 12:45 VBG pH 7.40 (7.32-7.43) 10/13/16 12:45 VBG pCO2 48 mmHg (40-60) 10/13/16 12:45 VBG HCO3 26.4 mmol/L 10/13/16 12:45 VBG Total CO2 31.2 mmol/L (22-28) H 10/13/16 12:45 VBG O2 Sat (Calc) 46.3 % (40-65) 10/13/16 12:45 VBG Base Excess 3.9 mmol/L (0.0-2.0) H 10/13/16 12:45 VBG Potassium 3.8 mmol/L (3.6-5.2) 10/13/16 12:45 Sodium 136.0 mmol/L (132-148) 10/13/16 12:45 Chloride 101.0 mmol/L (98-107) 10/13/16 12:45 Glucose 80 mg/dL (75-110) 10/13/16 12:45 Lactate 0.9 mmol/L (0.7-2.1) 10/13/16 12:45 FiO2 21.0 % 10/13/16 12:45 Sodium 139 mmol/l (132-148) 10/14/16 06:00 Potassium 4.3 MMOL/L (3.6-5.0) 10/14/16 06:00 Chloride 105 mmol/L (98-107) 10/14/16 06:00 Carbon Dioxide 26 mmol/L (22-30) 10/14/16 06:00 Anion Gap 12 (10-20) 10/14/16 06:00 BUN 11 mg/dl (9-20) 10/14/16 06:00 Creatinine 0.7 mg/dL (0.8-1.5) L 10/14/16 06:00 Est GFR ( Amer) > 60 10/14/16 06:00 Est GFR (Non-Af Amer) > 60 10/14/16 06:00 Random Glucose 89 mg/dL (75-110) 10/14/16 06:00 Calcium 8.8 mg/dL (8.4-10.2) 10/14/16 06:00 Total Bilirubin 0.8 mg/dl (0.2-1.3) 10/13/16 14:12 AST 25 U/L (17-59) 10/13/16 14:12 ALT 30 U/L (21-72) 10/13/16 14:12 Alkaline Phosphatase 83 U/L (38-126) 10/13/16 14:12 Total Protein 7.5 G/DL (6.3-8.2) 10/13/16 14:12 Albumin 4.2 g/dL (3.5-5.0) 10/13/16 14:12 Globulin 3.3 gm/dL (2.2-3.9) 10/13/16 14:12 Albumin/Globulin Ratio 1.3 (1.0-2.1) 10/13/16 14:12 Procalcitonin < 0.05 NG/ML (0.19-0.49) L 10/15/16 04:50 Venous Blood Potassium 3.8 mmol/L (3.6-5.2) 10/13/16 12:45 - Hospital Course Hospital Course: INFECTED WOUNDS OF LEGS Discharge Exam - Head Exam Head Exam: ATRAUMATIC, NORMAL INSPECTION, NORMOCEPHALIC - Eye Exam Eye Exam: EOMI, Normal appearance, PERRL Pupil Exam: NORMAL ACCOMODATION, PERRL - GI/Abdominal Exam GI & Abdominal Exam: Normal Bowel Sounds - Rectal Exam Rectal Exam: NORMAL INSPECTION - Exam Exam: Circumcision, NORMAL INSPECTION External exam: NORMAL EXTERNAL EXAM Speculum exam: NORMAL SPECULUM EXAM Bimanual exam: NORMAL BIMANUAL EXAM - Extremities Exam Additional comments: CELLULITIS WITH VENOUS STASES OF LEGS - Neurological Exam Neurological exam: Alert, CN II-XII Intact, Normal Gait, Oriented x3, Reflexes Normal - Psychiatric Exam Psychiatric exam: Normal Affect, Normal Mood - Skin Skin Exam: Dry, Warm Additional comments: CELLULITIS WITH VENOUS STASES OF LEGS Discharge Plan - Discharge Medications Prescriptions: Meropenem [Merrem IV] 1 gm IV Q12 #28 pds Vancomycin 1 GM [Vancomycin 1GM in Normal Saline Addvantage] 1 gm IVPB Q12 #28 bag - Follow Up Plan Condition: FAIR Disposition: REHAB FACILITY/REHAB UNIT Patient education suggested?: Yes Instructions: Cellulitis (DC) Additional Instructions: TRANSFER TO SUBACUTE CARE FOR IV ANTIBIOTIC THERAPY FOR 2 MORE WEEKS
== END 2016-10-16 17:30 | DRG 277 ==
LOC: H.ER 11:58 → H.ERHOLD 16:56 → H.MEDSURG1 20:53
PROVIDERS: ADMIT Internal Medicine Pulmonary Disease; ATTEND Internal Medicine Pulmonary Disease
DX: L03.115 Cellulitis of right lower limb (principal); L97.819 Non-pressure chronic ulcer of other part of right lower leg with unspecified severity; L97.829 Non-pressure chronic ulcer of other part of left lower leg with unspecified severity; I73.9 Peripheral vascular disease, unspecified; L03.116 Cellulitis of left lower limb; I87.2 Venous insufficiency (chronic) (peripheral); B95.7 Other staphylococcus as the cause of diseases classified elsewhere; Z16.24 Resistance to multiple antibiotics; F17.210 Nicotine dependence, cigarettes, uncomplicated; Z59.0 Homelessness; Z91.041 Radiographic dye allergy status

== ENCOUNTER 2017-11-27 14:59 | Emergency (ER) | payer MEDICAID ==
[2017-11-27 14:59] VITALS: BMI 33.0
[2017-11-27 15:19] VITALS: BP 130/76; PULSE 76; RESP 16; TEMP 98.6; O2SAT 98
[2017-11-27] MEDS ORDERED: Sodium Chloride 0.9% 1,000 ML IV STA (15:39)
--- NOTE | 2017-11-27 15:48 | ED PDOC ---
Lower Extremity Pain/Injury Time Seen by Provider: 11/27/17 15:25 Chief Complaint (Nursing): Lower Extremity Problem/Injury Chief Complaint (Provider): Left leg pain History Per: Patient History/Exam Limitations: no limitations Onset/Duration Of Symptoms: Days Current Symptoms Are (Timing): Still Present Additional Complaint(s): Can Daly is a 51 year old male, with no significant past medical history , who presents to the emergency department complaining of a burning pain to the left leg ongoing for several days. Patient has a wound there that is currently being treated by Dr. Lu and has a follow up appointment with him on Wednesday. Patient further states he hasn't changed his bandage for a week prompting ED visit today. He was on Clindamycin but finished his last dose x4 days ago. He denies any fever, chills or other medical complaints. PMD: [facility] Past Medical History Reviewed: Historical Data, Nursing Documentation, Vital Signs Vital Signs: Last Vital Signs Temp 98.6 F 11/27/17 15:15 Pulse 76 11/27/17 15:15 Resp 16 11/27/17 15:15 BP 130/76 11/27/17 15:15 Pulse Ox 98 11/27/17 15:15 - Medical History PMH: Peripheral Edema (bilateral lower ext.) Denies: HIV, Chronic Kidney Disease - Surgical History Surgical History: No Surg Hx - Family History Family History: States: Unknown Family Hx - Social History Current smoker - smoking cessation education provided: Yes (Light smoker <10 cigarettes daily) Alcohol: None Drugs: Denies - Home Medications Home Medications: Ambulatory Orders Medication Instructions Recorded Acetaminophen [Tylenol 325mg tab] 650 mg PO Q6 PRN tab 11/17/17 Clindamycin [Cleocin] 300 mg PO Q6H #28 cap 11/17/17 Acetaminophen [Tylenol Extra 500 mg PO Q6H #20 tablet 11/21/17 Strength] - Allergies Allergies/Adverse Reactions: Allergies Allergy/AdvReac Type Severity Reaction Status Date / Time Iodine and Iodide Containing Allergy SHORTNESS Verified 11/16/17 19:10 Produc OF BREATH Review of Systems ROS Statement: Except As Marked, All Systems Reviewed And Found Negative Constitutional: Negative for: Fever, Chills Musculoskeletal: Positive for: Leg Pain (left) Physical Exam - Reviewed Nursing Documentation Reviewed: Yes Vital Signs Reviewed: Yes - Physical Exam Appears: Positive for: Well Head Exam: Positive for: ATRAUMATIC, NORMAL INSPECTION, NORMOCEPHALIC Skin: Negative for: Normal Color Eye Exam: Positive for: Normal appearance Cardiovascular/Chest: Positive for: Regular Rate, Rhythm Respiratory: Positive for: Normal Breath Sounds. Negative for: Wheezing, Respiratory Distress Extremity: Positive for: Other (Chronic venous stasis dermatitis to bilateral lower extremities, no acute infection noted, chronic 2+ pitting edema bilaterally, N/V intact). Negative for: Calf Tenderness Neurologic/Psych: Positive for: Alert, Oriented, Gait (steady) - Laboratory Results Result Diagrams: 11/27/17 15:52 11/27/17 15:52 - ECG O2 Sat by Pulse Oximetry: 98 (RA) Pulse Ox Interpretation: Normal Medical Decision Making Medical Decision Making: Time: 15:25 Initial Impression: Leg pain Initial Plan: --CMP --CBC w/ differential --Sodium Chloride 1,000 ml IV 1,000 mls/hr --Blood culture --Reevaluation 4:40 pm: Dr. Hairston at bedside. He applied new dressings to bilateral legs. Patient will follow up with Dr. Lu on Wednesday in wound care clinic. Scribe Attestation: Documented by Pantera Onofre, acting as a scribe for Rica Mclean PA-C Provider Scribe Attestation: All medical record entries made by the Scribe were at my direction and personally dictated by me. I have reviewed the chart and agree that the record accurately reflects my personal performance of the history, physical exam, medical decision making, and the department course for this patient. I have also personally directed, reviewed, and agree with the discharge instructions and disposition. Disposition - Clinical Impression Clinical Impression: Chronic venous insufficiency, Chronic cellulitis Counseled Patient/Family Regarding: Studies Performed, Diagnosis, Need For Followup - Disposition [facility]errals: [facility] [Outside] Disposition: Routine/Home Disposition Time: 16:48 Condition: STABLE Additional Instructions: Keep dressings in place to both legs. Follow up on Wednesday with Dr. Lu at wound care center. Instructions: Cellulitis (Skin Infection), Adult (DC) Forms: [employer] (Latvian) Results - Lab Results Lab Results: 11/27/17 11/27/17 15:52 15:52 WBC 6.6 RBC 4.13 L Hgb 13.3 Hct 39.0 MCV 94.4 H MCH 32.3 H MCHC 34.2 RDW 13.1 Plt Count 332 D MPV 6.7 L Neut % (Auto) 67.4 Lymph % (Auto) 23.3 [place] % (Auto) 6.2 Eos % (Auto) 2.3 Baso % (Auto) 0.8 Neut # (Auto) 4.4 Lymph # (Auto) 1.5 [place] # (Auto) 0.4 Eos # (Auto) 0.2 Baso # (Auto) 0.1 Sodium 140 Potassium 4.2 Chloride 101 Carbon Dioxide 31 H Anion Gap 12 BUN 13 Creatinine 0.8 Est GFR ( Amer) > 60 Est GFR (Non-Af Amer) > 60 Random Glucose 96 Calcium 8.8 Total Bilirubin 0.3 AST 49 ALT 26 Alkaline Phosphatase 76 Total Protein 7.8 Albumin 3.8 Globulin 4.0 H Albumin/Globulin Ratio 1.0
[2017-11-27 16:03] LABS: BASO # 0.1 K/uL (0.0-0.2); BASO % 0.8 % (0.0-2.0); EOS # 0.2 K/uL (0.0-0.7); EOS % 2.3 % (0.0-4.0); HEMOGLOBIN 13.3 g/dL (12.0-18.0); LYMPH # 1.5 K/uL (1.0-4.3); LYMPH % 23.3 % (20.0-40.0); MEAN CELL VOLUME 94.4 fl (80.0-94.0); MEAN CORPUSCULAR HEMOGLOBIN 32.3 pg (27.0-31.0); MEAN CORPUSCULAR HGB CONC 34.2 g/dL (33.0-37.0); MEAN PLATELET VOLUME 6.7 fl (7.2-11.7); MONO # 0.4 K/uL (0.0-0.8); MONO % 6.2 % (0.0-10.0); NEUT # 4.4 K/uL (1.8-7.0); NEUT % 67.4 % (50.0-75.0); RBC 4.13 Mil/uL (4.40-5.90); RED CELL DISTRIBUTION WIDTH 13.1 % (11.5-14.5); WHITE BLOOD COUNT 6.6 K/uL (4.8-10.8)
[2017-11-27 16:19] LABS: ALBUMIN 3.8 g/dL (3.5-5.0); ALT/SGPT 26 U/L (21-72); AST/SGOT 49 U/L (17-59); BLOOD UREA NITROGEN 13 mg/dl (9-20); CALCIUM 8.8 mg/dL (8.4-10.2); GFR NON-AFRICAN AMERICAN > 60
--- NOTE | 2017-11-27 17:11 | CP.PCM.CON ---
History of Present Illness - History of Present Illness History of Present Illness: Podiatry consult note for attending Dr. Peterson, 51 y/o male with no significant past medical history presented to the ED due to complaints of bilateral lower extremity swelling left more than right, Patient states that he was admitted to the hospital about 10 days ago as his Left leg was red , hot and swallen. He states that he stayed for 1 day in the ospital then he was discharged on oral Clindamycin. Patient states that he finished it 4 days ago. He states that he saw Dr. Lu at the wound care center last wednesday where he applied Thea boot to his leg. Patient states that today he felt burning sensation in his leg and itching so he comes to the ED. Patient denies any pain to his leg. He denies any drainage. He denies any F/N/V/C or SOB recently. Patient denies any other pedal complaint at this time. PMHx: None PSHx: wound debridement Allergies: Iodine and Iodide containing products SHx: Patient is smoker smokes about 10 cig, a day for about 40 years. He denies EtOH use or illicit drug use. Review of Systems - Review of Systems Review of Systems: As per HPI Past Patient History - Infectious Disease Hx of Infectious Diseases: None - Past Medical History & Family History Past Medical History?: Yes - Past Social History Alcohol: None Drugs: Denies - CARDIAC Hx Peripheral Edema: Yes (bilateral lower ext.) - PULMONARY Hx Respiratory Disorders: No - NEUROLOGICAL Hx Neurological Disorder: No - HEENT Hx HEENT Problems: No - RENAL Hx Chronic Kidney Disease: No - ENDOCRINE/METABOLIC Hx Endocrine Disorders: No - HEMATOLOGICAL/ONCOLOGICAL Hx Human Immunodeficiency Virus (HIV): No - INTEGUMENTARY Hx Dermatological Problems: Yes Other/Comment: old lesions on bilateral lower extremities - MUSCULOSKELETAL/RHEUMATOLOGICAL Hx Musculoskeletal Disorders: No - GASTROINTESTINAL Hx Gastrointestinal Disorders: No - GENITOURINARY/GYNECOLOGICAL Hx Genitourinary Disorders: No - PSYCHIATRIC Hx Psychophysiologic Disorder: No Hx Substance Use: No - SURGICAL HISTORY Hx Surgeries: No - ANESTHESIA Hx Anesthesia: No Hx Anesthesia Reactions: No Hx Malignant Hyperthermia: No Meds Allergies/Adverse Reactions: Allergies Allergy/AdvReac Type Severity Reaction Status Date / Time Iodine and Iodide Containing Allergy SHORTNESS Verified 11/16/17 19:10 Produc OF BREATH Physical Exam - Constitutional Appears: Well, Non-toxic, No Acute Distress - Head Exam Head Exam: ATRAUMATIC, NORMOCEPHALIC - Extremities Exam Additional comments: Lower Extremity Focused Exam Vasc: DP/PT 2/4 bilaterally, Cap refill less than 3 seconds x 10, temp gradient and warm to cool from proximal to distal b/l, Extensive varicosities noted to bilateral legs and feet. Neuro: Gross and protective sensations are intact b/l. Derm: venous stasis with +2 pitting edema to bilateral legs left > right, hyperpigmentation noted to anterior legs b/l , healed scab right anterior distal 1/3 of the leg, left legs shows maceration to the anterior border at the midcalf level, no open wounds, no malodor or drainage. No signs of active infection. Ortho: No pain on palpation to the left lower extremity. Muscle power intact 5/ 5 in all groups. - Neurological Exam Neurological exam: Alert, Oriented x3 - Psychiatric Exam Psychiatric exam: Normal Affect, Normal Mood Results - Vital Signs Recent Vital Signs: Last Vital Signs Temp 98.6 F 11/27/17 15:15 Pulse 76 11/27/17 15:15 Resp 16 11/27/17 15:15 BP 130/76 11/27/17 15:15 Pulse Ox 98 11/27/17 16:58 - Labs Result Diagrams: 11/27/17 15:52 11/27/17 15:52 Labs: Laboratory Results - last 24 hr 11/27/17 11/27/17 15:52 15:52 WBC 6.6 RBC 4.13 L Hgb 13.3 Hct 39.0 MCV 94.4 H MCH 32.3 H MCHC 34.2 RDW 13.1 Plt Count 332 D MPV 6.7 L Neut % (Auto) 67.4 Lymph % (Auto) 23.3 [place] % (Auto) 6.2 Eos % (Auto) 2.3 Baso % (Auto) 0.8 Neut # (Auto) 4.4 Lymph # (Auto) 1.5 [place] # (Auto) 0.4 Eos # (Auto) 0.2 Baso # (Auto) 0.1 Sodium 140 Potassium 4.2 Chloride 101 Carbon Dioxide 31 H Anion Gap 12 BUN 13 Creatinine 0.8 Est GFR ( Amer) > 60 Est GFR (Non-Af Amer) > 60 Random Glucose 96 Calcium 8.8 Total Bilirubin 0.3 AST 49 ALT 26 Alkaline Phosphatase 76 Total Protein 7.8 Albumin 3.8 Globulin 4.0 H Albumin/Globulin Ratio 1.0 Assessment & Plan - Assessment and Plan (Free Text) Assessment: 51 y/o male patient seen and evaluated in the ED for left leg chronic edema. Plan: Plan: Patient seen and evaluated in the ED Plan discussed with attending Dr. Peterson Chart, labs and vitals reviewed; Patient is afebrile , WBCs 6.6 Applied Bacitracin, xeroform, 4x4 gauze and kerlix to the left leg. Applied modified [place] compression 1layer of wibrol and one layer of jerry bandage to the left LE. Patient instructed to go to the wound care center next wednesday Patient expressed verbal understanding. Patient will follow up at the wound care center with Dr. Lu. - Date & Time Date: 11/27/17 Time: 17:11
== END 2017-11-27 16:56 | disposition home or self-care (01) ==
LOC: H.ER 14:59
DX: I87.2 Venous insufficiency (chronic) (peripheral) (principal); F17.210 Nicotine dependence, cigarettes, uncomplicated; L03.116 Cellulitis of left lower limb
CPT/HCPCS: 80053; 85025; 87040; 96360; 99283; J7030

== ENCOUNTER 2018-02-12 18:10 | Emergency (ER) | payer MEDICAID ==
[2018-02-12 18:10] VITALS: BMI 33.0
--- NOTE | 2018-02-12 20:08 | ED PDOC ---
Lower Extremity Pain/Injury Time Seen by Provider: 02/12/18 19:25 Chief Complaint (Nursing): Wound Check Chief Complaint (Provider): Wound Check History Per: Patient History/Exam Limitations: no limitations Onset/Duration Of Symptoms: Days Current Symptoms Are (Timing): Still Present Additional Complaint(s): Riana Pradhan is a 52 year old homeless male with a past medical history of chronic venous stasis and stasis dermatitis who is presenting to the ED for evaluation of lower extremity wound. Patient states that he follows up with Dr. Lu at the wound care center for an open wound to the left tibial surface that he states has gotten worse. He reports that she saw Dr. Lu 8 days ago and had dressings applied. He adds that the wound has expanded and notes additional redness, which is also noted on the right lower extremity but he says that is more chronic in nature and has no open wounds. Patient denies any fever or chills and offers no other medical complaints. PMD: Dr. Kim Past Medical History Reviewed: Historical Data, Nursing Documentation, Vital Signs Vital Signs: Last Vital Signs Temp 98.6 F 02/12/18 18:28 Pulse 90 02/12/18 18:28 Resp 16 02/12/18 18:28 BP 137/72 02/12/18 18:28 Pulse Ox 97 02/12/18 18:28 - Medical History PMH: Peripheral Edema (bilateral lower ext.) Denies: HIV, Chronic Kidney Disease - Surgical History Surgical History: No Surg Hx - Family History Family History: States: Unknown Family Hx - Social History Current smoker - smoking cessation education provided: Yes Alcohol: None Drugs: Denies - Home Medications Home Medications: Ambulatory Orders Medication Instructions Recorded Acetaminophen [Tylenol 325mg tab] 650 mg PO Q6 PRN tab 11/17/17 Clindamycin [Cleocin] 300 mg PO Q6H #28 cap 11/17/17 Acetaminophen [Tylenol Extra 500 mg PO Q6H #20 tablet 11/21/17 Strength] Cephalexin [Keflex] 500 mg PO Q6 #40 capsule 02/12/18 - Allergies Allergies/Adverse Reactions: Allergies Allergy/AdvReac Type Severity Reaction Status Date / Time Iodine and Iodide Containing Allergy SHORTNESS Verified 02/12/18 18:28 Produc OF BREATH Review of Systems ROS Statement: Except As Marked, All Systems Reviewed And Found Negative Constitutional: Negative for: Fever, Chills Musculoskeletal: Positive for: Leg Pain (would to left leg, erythema to right and left lower extremity) Physical Exam - Reviewed Nursing Documentation Reviewed: Yes Vital Signs Reviewed: Yes - Physical Exam Appears: Positive for: Non-toxic, No Acute Distress Head Exam: Positive for: ATRAUMATIC, NORMAL INSPECTION, NORMOCEPHALIC Skin: Positive for: Normal Color, Warm, DRY Eye Exam: Positive for: EOMI, Normal appearance, PERRL ENT: Positive for: Normal ENT Inspection Neck: Positive for: Normal, Painless ROM, Supple Cardiovascular/Chest: Positive for: Regular Rate, Rhythm. Negative for: Murmur Respiratory: Positive for: Normal Breath Sounds. Negative for: Respiratory Distress Gastrointestinal/Abdominal: Positive for: Normal Exam, Soft. Negative for: Tenderness Extremity: Positive for: Normal ROM, Other (bilateral tibial surface with warmth, erythema, and fluctuance; 1.5 cm open wound with active drainage to anterior tibial surface). Negative for: Deformity, Swelling Neurologic/Psych: Positive for: Alert, Oriented. Negative for: Motor/Sensory Deficits - Laboratory Results Result Diagrams: 02/12/18 20:18 02/12/18 20:18 - ECG O2 Sat by Pulse Oximetry: 97 (RA) Pulse Ox Interpretation: Normal Medical Decision Making Medical Decision Making: Time: 19:40 Impression: 52 year old male with open ulcer in setting of chronic venous stasis Plan: --Alcohol Serum --CMP --Digoxin --Lact Acid, Plasma --CBC --Blood Culture --Wound Culture --Accucheck --X-Ray Tibia Fibula 22:48 Patient was evaluated by podiatry with a diagnosis of chronic venous stasis and dermatitis as well as chronic ulcer. Upon provider evaluation and podiatry consult, patient is medically stable to be discharged home. Scribe Attestation: Documented by Milli Robb, acting as a scribe for Sahil Anderson MD. Provider Scribe Attestation: All medical record entries made by the Scribe were at my direction and personally dictated by me. I have reviewed the chart and agree that the record accurately reflects my personal performance of the history, physical exam, medical decision making, and the department course for this patient. I have also personally directed, reviewed, and agree with the discharge instructions and disposition. Disposition - Clinical Impression Clinical Impression: Chronic cellulitis, Venous stasis ulcers of both lower extremities - Patient ED Disposition Is Patient to be Admitted: No - Disposition Disposition: Routine/Home Disposition Time: 22:51 Condition: STABLE Prescriptions: Cephalexin [Keflex] 500 mg PO Q6 #40 capsule Instructions: Cellulitis (Skin Infection), Adult (DC) Forms: [facility] ([employer])
[2018-02-12 20:23] LABS: BASO % 0.8 % (0.0-2.0); EOS # 0.2 K/uL (0.0-0.7); HEMOGLOBIN 13.4 g/dL (12.0-18.0); LYMPH # 1.4 K/uL (1.0-4.3); LYMPH % 27.1 % (20.0-40.0); MEAN CORPUSCULAR HEMOGLOBIN 32.3 pg (27.0-31.0); MEAN CORPUSCULAR HGB CONC 34.4 g/dL (33.0-37.0); MEAN PLATELET VOLUME 7.2 fl (7.2-11.7); MONO # 0.4 K/uL (0.0-0.8); NEUT # 3.2 K/uL (1.8-7.0); NEUT % 62.1 % (50.0-75.0); RBC 4.16 Mil/uL (4.40-5.90); RED CELL DISTRIBUTION WIDTH 14.4 % (11.5-14.5); WHITE BLOOD COUNT 5.1 K/uL (4.8-10.8)
--- NOTE | 2018-02-12 20:26 | CP.PCM.CON ---
History of Present Illness - History of Present Illness History of Present Illness: Podiatry - Dr. Lu 52 year old male patient seen and evaluated in ED concerning left leg wound. Patient is well known to Dr. Lu. Patient complains of pain around left leg wound; states he has had this wound for over a year, and has been seeing Dr. Lu for wound care however has not been to his appointments recently. Patient states pain has worsened with along with foul odor and surrounding swelling periwound; denies seeing pus or increased drainage. Denies recent n/v/f/d/c/sob/[facility]/cp. Offers no other complaints. PMHx: denies PSH: wound debridement SH: denies ETOH, current tobacco use (~1PPD x 40 years) All: Iodine Review of Systems - Review of Systems All systems: reviewed and no additional remarkable complaints except (as per HPI) Past Patient History - Infectious Disease Hx of Infectious Diseases: None - Past Medical History & Family History Past Medical History?: Yes - Past Social History Alcohol: None Drugs: Denies - CARDIAC Hx Peripheral Edema: Yes (bilateral lower ext.) - PULMONARY Hx Respiratory Disorders: No - NEUROLOGICAL Hx Neurological Disorder: No - HEENT Other/Comment: eyeglasses - RENAL Hx Chronic Kidney Disease: No - ENDOCRINE/METABOLIC Hx Endocrine Disorders: No - HEMATOLOGICAL/ONCOLOGICAL Hx Human Immunodeficiency Virus (HIV): No - INTEGUMENTARY Hx Cellulitis: Yes (was discharged yesterday for same problem) Other/Comment: old lesions on bilateral lower extremities - MUSCULOSKELETAL/RHEUMATOLOGICAL Hx Musculoskeletal Disorders: No - GASTROINTESTINAL Hx Gastrointestinal Disorders: No - GENITOURINARY/GYNECOLOGICAL Hx Genitourinary Disorders: No - PSYCHIATRIC Hx Psychophysiologic Disorder: No Hx Substance Use: No - SURGICAL HISTORY Hx Surgeries: No - ANESTHESIA Hx Anesthesia: No Hx Anesthesia Reactions: No Hx Malignant Hyperthermia: No Meds Home Medications: Home Medication List Medication Instructions Recorded Confirmed Type Cephalexin [Keflex] 500 mg PO Q6 #40 capsule 02/12/18 Rx Allergies/Adverse Reactions: Allergies Allergy/AdvReac Type Severity Reaction Status Date / Time Iodine and Iodide Containing Allergy SHORTNESS Verified 02/12/18 18:28 Produc OF BREATH Physical Exam - Constitutional Appears: Well, Non-toxic, No Acute Distress - Extremities Exam Additional comments: Vasc: DP/PT 2/4 bilaterally, CFT <3 seconds to digits, nonpitting lower extremity edema noted b/l, severe extensive varicosities noted from knee distal to feet b/l Neuro: Gross and protective sensations are intact b/l. Derm: venous stasis dermatitis noted circumfirentially around leg b/l, full thickness ulceration measuring approximately 2 x 2 x 0.3 cm noted to anterior left tibia - ulcer noted to have a 75% granular and 25% fibrotic base with eschar rim; mild serosanguinous drainage present; no purulence; malodor present; no undermining; no tunneling; no probe to bone. Ortho: Tenderness to palpation left leg wound. Muscle power intact 5/5 in all groups. - Neurological Exam Neurological exam: Alert, Oriented x3 - Psychiatric Exam Psychiatric exam: Normal Affect, Normal Mood Results - Vital Signs Recent Vital Signs: Last Vital Signs Temp 98.6 F 02/12/18 18:28 Pulse 90 02/12/18 18:28 Resp 16 02/12/18 18:28 BP 137/72 02/12/18 18:28 Pulse Ox 97 02/12/18 20:09 - Labs Result Diagrams: 02/12/18 20:18 02/12/18 20:18 Labs: Laboratory Results - last 24 hr 02/12/18 20:18 WBC 5.1 RBC 4.16 L Hgb 13.4 Hct 39.1 MCV 94.0 MCH 32.3 H MCHC 34.4 RDW 14.4 Plt Count 194 D MPV 7.2 Neut % (Auto) 62.1 Lymph % (Auto) 27.1 [place] % (Auto) 7.0 Eos % (Auto) 3.0 Baso % (Auto) 0.8 Neut # (Auto) 3.2 Lymph # (Auto) 1.4 [place] # (Auto) 0.4 Eos # (Auto) 0.2 Baso # (Auto) 0.0 Assessment & Plan - Assessment and Plan (Free Text) Assessment: 52M with left leg venous stasis ulceration Plan: Patient seen and evaluated Discussed with attending, Dr. Tabitha PERSAUD, WBC 5.1 Local wound care provided - bacitracin, telfa, DSD Advised patient to keep dressing clean/dry/intact until follow up appointment Recommend Rx Keflex 500mg TID x10 days Pain control per ED Stable for dc per podiatry Thank you for the consult
[2018-02-12 20:33] LABS: ALB/GLOB RATIO 1.1 (1.0-2.1); ALBUMIN 3.9 g/dL (3.5-5.0); ALT/SGPT 28 U/L (21-72); AST/SGOT 27 U/L (17-59); BLOOD UREA NITROGEN 19 mg/dl (9-20); CALCIUM 8.6 mg/dL (8.4-10.2); GFR NON-AFRICAN AMERICAN > 60
[2018-02-12 23:12] VITALS: BP 130/70; PULSE 88; RESP 22; TEMP 98.1; O2SAT 98
--- NOTE | 2018-02-13 11:02 | RAD ---
Date of service: 02/12/2018 HISTORY: tibial ulcer COMPARISON: None available. FINDINGS: BONES: Normal. No fracture. JOINTS: Normal. No osteoarthritis. SOFT TISSUE: Normal. OTHER FINDINGS: None . IMPRESSION: Normal Bone Xray.
== END 2018-02-12 23:12 | disposition home or self-care (01) ==
LOC: H.ER 18:10
DX: L03.116 Cellulitis of left lower limb (principal); I87.8 Other specified disorders of veins; L97.929 Non-pressure chronic ulcer of unspecified part of left lower leg with unspecified severity; L97.919 Non-pressure chronic ulcer of unspecified part of right lower leg with unspecified severity; F17.200 Nicotine dependence, unspecified, uncomplicated